=== PATIENT | male | born 1945 | race Caucasian/White ===

== ENCOUNTER 2020-07-15 20:47 | Emergency (ER) | payer MEDICARE, SELFPAY ==
--- NOTE | ~2020-07-15 | XR_ITS ---
EXAMINATION: XR chest 1V INDICATION: Chest pain after fall TECHNIQUE: AP view of the chest is obtained. COMPARISON: 08/07/2018 FINDINGS: There are chronic small pleural effusions, left greater than right. There is no pneumothora x. The heart size is upper limits of normal for technique. The lungs are free of acute opacities. IMPRESSION: 1. Small chronic pleural effusions. Reviewed, dictated and finalized at location A.
--- NOTE | ~2020-07-15 | XR_ITS ---
EXAMINATION: XR hip LT 2V w AP pelvis INDICATION: Left hip pain TECHNIQUE: AP view the pelvis and two views of the left hip are obtained. COMPARISON: None available FINDINGS: Bone alignment is normal. There is no fracture. There is mild osteoarthritis of the hips. IMPRESSION: 1. Mild osteoarthritis. Reviewed, dictated and finalized at location A. IMPRESSION: 1. Mild osteoarthritis.
--- NOTE | ~2020-07-15 | CT_ITS ---
EXAMINATION: CT brain wo con INDICATION: Dizziness COMPARISON: None TECHNIQUE: Standard unenhanced head CT. The dose-length product (DLP) was 605.33 mGy-cm. The mA was a djusted according to patient size. Iterative reconstruction technique was employed. FINDINGS: There is no acute intraparenchymal hemorrhage. No evidence of mass lesion. No evidence of a cute infarction. 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 There is mild periventric ular and subcortical hypodensity probably related to small vessel ischemic disease. There is moderate prominence of the sulci and ventricles related to cerebral atrophy. Intracranial calcified cerebral atherosclerosis is noted. There are no extra-axial collections. There is no mass effect or midline sh ift. Changes in the globes are likely from ocular lens surgery. There is mild mucosal thickening of the paranasal sinuses. IMPRESSION: 1. No acute intracranial abnormality. 2. Age related findings. Reviewed, dictated and finalized at location A.
[2020-07-15 20:51] VITALS: BP 126/74; PULSE 84; RESP 18; TEMP 36.9; O2SAT 100
[2020-07-15] MEDS: SODIUM CHLORIDE 0.9% IV 1,000 ML 999 ML IV CONT (21:51)
[2020-07-15 21:55] LABS: Hematocrit 26.6 % (42.0-52.0); Hemoglobin 8.4 g/dL (14.0-18.0); Immature Platelet Fraction Pct 6.8 % (0.9-11.2); Mean Corpuscular HGB Conc 31.6 g/dl (32-36); Mean Corpuscular Hemoglobin 30.3 pg (26-34); Mean Platelet Volume 11.5 fl (7.4-10.4); Platelet Count Result 96 k/mm3 (150-375); Red Blood Count 2.77 M/mm3 (4.6-6.20); Red Cell Distribution Width 17.4 % (11.5-14.5); White Blood Count 28.2 K/mm3 (4.5-10.0)
[2020-07-15 22:04] LABS: Anion Gap 7 mmol/L (8-16); Blood Urea Nitrogen 21 mg/dL (9-20); Calcium 8.4 mg/dL (8.4-10.2); Carbon Dioxide 22 mmol/L (22-30); Chloride 111 mmol/L (98-107); Estimated CRCL calculation 36 ml/min; Estimated Glomerular Filt Rate 39; Glucose 108 mg/dL (75-110); Sodium 140 mmol/L (137-145)
[2020-07-15 22:08] LABS: Band Neutrophils Percent 21 % (0-6); Monocytes Absolute Manual 3.66 K/mm3 (0.1-0.90); Monocytes Percent Manual 13 % (3-9); Neutrophils Percent Manual 40 % (46-73); Total Cells Counted 100
[2020-07-15 22:09] LABS: Platelet Estimate Decreased (Adequate)
[2020-07-15 22:10] LABS: Anisocytosis 1+ (NORMAL); Ovalocytes 1+ (NORMAL); Poikilocytosis 1+ (NORMAL)
[2020-07-15 22:12] LABS: Atypical Lymphocytes Present; Schistocytes 1+ (NORMAL)
[2020-07-15 22:13] LABS: Lymphocytes Absolute Manual 5.92 K/mm3 (1.1-4.5); Lymphocytes Percent Manual 21 % (18-44); Metamyelocytes Percent 5 %
[2020-07-15 22:46] VITALS: BP 134/81; PULSE 75
[2020-07-15 22:49] VITALS: BP 139/81; PULSE 80
[2020-07-15 22:51] VITALS: BP 120/78; PULSE 81
--- NOTE | 2020-07-15 23:48 | ED.GENADULT ---
HPI - General Adult General Chief complaint: Fall Stated complaint: fell at 1730 pt hit left arm arm and hip Time Seen by Provider: 07/15/20 21:04 Source: patient and RN notes reviewed Mode of arrival: ambulatory Limitations: no limitations History of Present Illness HPI narrative: Patient is a 75-year-old male who presents for evaluation of injuries related to a ground-level fall that occurred just prior to arrival patient was standing when he lost his balance falling injuring his left hip sustaining an abrasion to the left forearm. Patient notes history of lymphoma. Patient denies syncope loss of consciousness. Patient is currently being followed by oncology at [facility]. Patient notes he is receiving chemotherapy the last of which was a month ago and has plans to follow-up in clinic next week. Patient denies any recent illness or other complaints. Patient presents per private vehicle drove himself here. Patient lives at home by himself. Related Data Allergies Allergy/AdvReac Type Severity Reaction Status Date / Time tomato Allergy Unknown Verified 08/06/18 12:30 ONION Allergy Mild Uncoded 12/06/13 23:34 Review of Systems Review of Systems: All systems reviewed & are unremarkable except as noted in HPI and below PMFSH Past Medical History Medical History (Updated 07/15/20 @ 23:55 by Boo Funk PA-C) Lymphoma Seizures Social History Social History Smoking status: Never smoker Gender identity (if verbalized by the patient): Male Exam Narrative: Exam Narrative: GENERAL: Well-appearing, well-nourished, and in no acute distress. HEAD: Normocephalic, atraumatic. EYES: PERRLA and EOMI. ENT: Nares clear, no rhinorrhea or epistaxis. Mucous membranes moist. NECK: Supple. No adenopathy or masses. CHEST: Clear to auscultation. No respiratory distress. No wheezes rales or rhonchi HEART: Regular rate and rhythm. No murmur heard. Normal peripheral pulses. ABDOMEN: Soft, nontender, nondistended EXTREMITIES: Normal range of motion. No edema. Tenderness of the left hip no deformity. No cervical thoracic or lumbar tenderness. Remainder of extremities palpated nontender SKIN: Warm, dry, no rash. Superficial skin tear to the left forearm measuring 3 cm in length. NEURO: No focal deficits. Alert and oriented x3. Cranial nerves II through XII grossly intact. PSYCH: Normal mood and affect. Course Course Emergency Course: Discussed case with patient's oncology group and notes that his lab findings are consistent and they will follow with him by phone tomorrow. Patient is aware of the recommendations and discussion with his oncologist group. Patient was hydrated in the emergency department and road tested and notes that he feels comfortable to go home. He was offered to stay in the hospital but prefers to go home. Patient will follow with his oncology group tomorrow. Patient is afebrile nontoxic-appearing no distress. Consultations Consultation #1: Patient's lab findings and imaging findings were discussed with his [facility] group [facility] they will follow with him tomorrow and notes that his findings are consistent with his recent blood work Date: 07/15/20 Time: 23:53 Vital Signs Vital signs: Vital Signs Temperature 98.5 F 07/15/20 20:51 Pulse Rate 84 07/15/20 20:51 Respiratory Rate 18 07/15/20 20:51 Blood Pressure 126/74 07/15/20 20:51 Pulse Oximetry 100 07/15/20 20:51 Temperature 98.5 F 07/15/20 20:51 Pulse Rate 81 07/15/20 22:51 Respiratory Rate 18 07/15/20 20:51 Blood Pressure 120/78 07/15/20 22:51 Pulse Oximetry 100 07/15/20 20:51 Medical Decision Making MDM Narrative Medical decision making narrative: Patient evaluated in the emergency department for his injuries and is in the room in no distress will be discharged home per his preference he feels comfortable to go home patient was offered in [facility]
[2020-07-15 23:58] VITALS: BP 132/71; PULSE 74; RESP 18; O2SAT 99
== END 2020-07-15 23:58 | disposition home or self-care (01) ==
PROVIDERS: Emergency Medicine Emergency Medical Services; Emergency Provider Emergency Medicine; PCP Internal Medicine
DX: S79.912A Unspecified injury of left hip, initial encounter (principal); C85.90 Non-Hodgkin lymphoma, unspecified, unspecified site; Z79.899 Other long term (current) drug therapy; M16.12 Unilateral primary osteoarthritis, left hip; S51.812A Laceration without foreign body of left forearm, initial encounter; W18.39XA Other fall on same level, initial encounter
CPT/HCPCS: 36415; 70450; 71045; 73502; 80048; 85025; 85055; 96360; 99284; J7030

== ENCOUNTER 2020-10-05 21:41 | Inpatient (IN) | payer MEDICARE, SELFPAY ==
--- NOTE | ~2020-10-05 | XR_ITS ---
EXAMINATION: XR elbow LT min 3V DATE: 10/05/2020 23:23 INDICATION: Left elbow pain post fall TECHNIQUE: Anteroposterior, two oblique and lateral views of the left elbow were obtained. COMPARISON: None. FINDINGS: Alignment is normal. No fracture or joint effusion. Mild osteoarthritis at the left elbow. Soft tissu es are unremarkable. IMPRESSION: 1. Mild osteoarthritis at the left elbow. No acute osseous abnormality. Reviewed, dictated and finalized at location A.
--- NOTE | ~2020-10-05 | CT_ITS ---
EXAMINATION: CT brain wo con DATE: 10/05/2020 23:14 INDICATION: Fall with head injury TECHNIQUE: Computed tomography (CT) of the head was performed without intravenous contrast. Sagittal and coronal reconstructions were performed. The mA was adjusted according to patient size. Iterative reconstruction technique was employed. The dose-length product was 605.33 mGy-cm. COMPARISON: head CT dated 07/15/2020 FINDINGS: No fracture. No acute intracranial hemorrhage, acute infarction or abnormal extra axial fluid collect ion. Small old lacunar infarct versus prominent perivascular space at the inferior left basal ganglia . Small cortical infarcts at the left frontal and left frontoparietal regions as well as bilateral sm all old cerebellar infarcts. There is mild scattered white matter hypoattenuation consistent with chr onic small vessel ischemic disease. There is unchanged symmetric enlargement of the ventricles which is disproportionately to the relatively mild increased prominence of the sulci which could be related to either central predominant volume loss or normal pressure hydrocephalus. No mass/mass effect. Shereen nges of bilateral intraocular lens replacement. The orbits and mastoid air cells are normal. Mucosal thickening at the bilateral ethmoid and right sphenoid sinuses. IMPRESSION: 1. No acute intracranial process. 2. Small old infarcts in the left frontal and parietal occipital regions and bilateral cerebellar hem ispheres along with possible additional old lacunar infarct versus prominent perivascular space at th e left basal ganglia. 3. Unchanged increased prominence of the ventricles relative to the sulci which could be due to centr al predominant diffuse volume loss or normal pressure hydrocephalus (NPH: clinical triad ataxia/gait disturbance, dementia, urinary incontinence). Reviewed, dictated and finalized at location A. IMPRESSION: 1. No acute intracranial process. 2. Small old infarcts in the left frontal and parietal occipital regions and bi lateral cerebellar hemispheres along with possible additional old lacunar infar ct versus prominent perivascular space at the left basal ganglia. 3. Unchanged increased prominence of the ventricles relative to the sulci which could be due to central predominant diffuse volume loss or normal pressure hyd rocephalus (NPH: clinical triad ataxia/gait disturbance, dementia, urinary inco ntinence).
--- NOTE | ~2020-10-05 | MR_ITS ---
EXAMINATION: MR brain IAC wo con DATE: 10/06/2020 13:23 INDICATION: Gait dysfunction. Frequent falls. TECHNIQUE: Magnetic resonance imaging (MRI) of the brain, brainstem, and internal auditory canals was performed without intravenous contrast. Sequences included sagittal and axial T1-weighted FSE, axial diffusion-weighted FS EPI, axial T2*-weighted GRE, axial T2-weighted FLAIR Propeller, axial T2-weigh radha Propeller, small [id number] coronal FIESTA, small rgtyy-qg-[id number] coronal T1-weighted FSE, and s mall ovctk-bw-wgrs axial T1-weighted SPGR. Apparent diffusion coefficient (ADC) maps were created. COMPARISON: Head CT 10/05/2020 FINDINGS: There are old infarcts in the cerebellum bilaterally. There is an old infarct in left parie darshana occipital region. There is an old infarct in posterior left frontal lobe. There are old infarcts in the bilateral caudate nuclei. There are scattered areas of nonspecific increased T2-weighted signa l intensity in the cerebral white matter. There is no intracranial hemorrhage, acute infarction, or a bnormal intracranial mass lesion. The ventricles are normal in size. There is mucosal thickening in t he paranasal sinuses. There are likely changes of ocular lens replacement surgeries. The mastoid air cells are normal. IMPRESSION: 1. Multiple old infarcts in the brain. 2. Mild nonspecific cerebral white matter disease, which likely represents chronic small vessel ische kirill disease. Reviewed, dictated and finalized at location A. IMPRESSION: 1. Multiple old infarcts in the brain. 2. 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
--- NOTE | ~2020-10-05 | XR_ITS ---
EXAMINATION: XR chest 2V DATE: 10/05/2020 23:23 INDICATION: Weakness. Fall. TECHNIQUE: frontal and lateral views of the chest were obtained. COMPARISON: Chest radiograph dated 08/07/2018 and 07/15/2020 FINDINGS: Opacities in the bilateral lower lung zones consistent with persistent chronic small bilateral pleura l effusions, left greater than right and associated basilar atelectasis. Opacities in the right midlu ng zone on the lateral projection appears to represent an additional small amount of fluid loculated along the cephalad aspect of the right major fissure. No pulmonary edema or pneumothorax. Borderline heart size accounting for AP technique. Old healed lateral left eighth and ninth rib fractures. IMPRESSION: 1. Chronic small bilateral pleural effusions, left greater than right with associated basilar atelect asis/scarring. Pneumonia could not be excluded in the appropriate clinical setting. 2. Borderline heart size. Reviewed, dictated and finalized at location A. IMPRESSION: 1. Chronic small bilateral pleural effusions, left greater than right with asso ciated basilar atelectasis/scarring. Pneumonia could not be excluded in the neva ropriate clinical setting. 2. Borderline heart size.
--- NOTE | ~2020-10-05 | XR_ITS ---
EXAMINATION: XR knee LT min 4V DATE: 10/05/2020 23:24 INDICATION: Left knee pain post fall TECHNIQUE: Anteroposterior, 2 oblique and crosstable lateral views of the left knee were obtained COMPARISON: None. FINDINGS: Alignment is normal. No fracture. Joint spaces appear normal on nonweightbearing imaging. Tiny shefali nal osteophyte at the inferior margin of the patella. No joint effusion/layering lipohemarthrosis. So ft tissues are unremarkable. IMPRESSION: 1. No left knee joint effusion or acute osseous abnormality. Reviewed, dictated and finalized at location A.
--- NOTE | ~2020-10-05 | CT_ITS ---
EXAMINATION: CT abdomen pelvis wo con DATE: 10/06/2020 13:26 INDICATION: Weight loss. Decreased appetite. History of lymphoma. TECHNIQUE: Computed tomography (CT) of the abdomen and pelvis was performed without intravenous contr ast. Automated exposure control and iterative reconstruction technique were employed. Exam dose: 322 .85 mGy-cm total exam DLP. COMPARISON: None. FINDINGS: Bilateral lower lobe compressive atelectasis Mild to moderate bilateral pleural effusions. Cardiomegaly. No pericardial effusion. Small sliding hiatal hernia. 12 mm right hepatic posterior lateral peripheral hypoattenuating lesion with attenuation near fluid, consistent with hepatic cyst. Possible several additional smaller hepatic cysts. This examination is limited without the use of the intervenous contrast material. Borderline splenic size, the spleen measuring up to approximately 12 mm vertical dimension. 5.3 cm posterior upper pole right renal cyst Approximately 2 cm exophytic probable posterior lower pole left renal cyst 3.5 cm lower pole left renal cyst. No urinary tract calculus or hydroureteronephrosis is evident. There is moderate diffuse thickening o f the urinary bladder wall. There is moderate prostate enlargement and mild prostate calcification. There is aortic tortuosity and calcification; no abdominal aortic aneurysm. No intraperitoneal or retroperitoneal or pelvic mass lesion or adenopathy or ascites is detected. There is a prominent amount fecal material in the rectum, and prominent gas as well as air-fluid leve ls in the colon. No bowel obstruction is evident. No intraperitoneal free air is detected. There are multiple fracture deformities of the thoracic and lumbar spine including moderate anterior wedge compression fracture deformities at T10 and T11, L2 and L4 and to a lesser extent L3. There is more prominent burst fracture deformity of L5. There is osteophytic changes at both hip joints. No suspicious osteolytic or osteoblastic lesions are noted. IMPRESSION: Cardiomegaly, mild to moderate bilateral pleural effusions Bilateral lower lobe atelectasis Small sliding hiatal hernia Probable hepatic cysts Bilateral renal cysts Borderline splenic size Moderate prostate enlargement and calcification Multiple fracture deformities of the lower thoracic and lumbar spine Reviewed, dictated and finalized at Location A. Reviewed, dictated and finalized at location A.
[2020-10-05 21:42] VITALS: BP 131/80; PULSE 80; RESP 14; TEMP 37.3; O2SAT 100
[2020-10-05 22:33] VITALS: PULSE 68
--- NOTE | 2020-10-05 22:55 | ED.GENADULT ---
HPI - General Adult General Chief complaint: Unspecified Stated complaint: weakness Time Seen by Provider: 10/05/20 22:22 Source: patient and RN notes reviewed Mode of arrival: EMS Limitations: no limitations History of Present Illness HPI narrative: This is a 75 year old male with history of lymphoma who presents for evaluation of weakness. PAtient states he has not been eating much for the past 3 weeks. He states he does not have the desire to cook anymore so he has only been eating oatmeal. He states he fell 2- 3 days ago when he was picking weeds. He states he lost his balance and fell. He was able to get himself up off the ground. He denies headache or LOC. He suffered abrasions to his left forehead and left elbow. He did not seen medical treatment at that time. He states he came to hospital today because some friends recommended him to come to hospital. He states they have not seen him in a long time and they did not think he looked well. He told triage he has not showed in days. He states he needs some help with cooking and other things. He denies chest pain, sob, nausea, vomiting, diarrhea, abdominal pain or fever. Related Data Home Medications Medication Instructions Recorded Confirmed aprepitant See Rx Instructions .ROUTE .COMPLEX 10/06/20 10/06/20 fluticasone propionate 50 mcg INTRANASAL DAILY 10/06/20 10/06/20 latanoprost 1 drp EACH EYE HS 10/06/20 10/06/20 ondansetron HCl 8 mg PO Q8-10H PRN 10/06/20 10/06/20 prednisone See Rx Instructions .ROUTE .COMPLEX 10/06/20 10/06/20 prochlorperazine maleate 10 mg PO Q6-8H PRN 10/06/20 10/06/20 tamsulosin 0.4 mg PO DAILY 10/06/20 10/06/20 topiramate See Rx Instructions .ROUTE .COMPLEX 10/06/20 10/06/20 valacyclovir 500 mg PO DAILY 10/06/20 10/06/20 Allergies Allergy/AdvReac Type Severity Reaction Status Date / Time tomato Allergy Unknown Verified 08/06/18 12:30 ONION Allergy Mild Uncoded 12/06/13 23:34 Review of Systems Review of Systems: All systems reviewed & are unremarkable except as noted in HPI and below PMFSH Past Medical History Medical History (Updated 10/06/20 @ 07:55 by Rosalba Carrasquillo MD) Lymphoma Seizures Surgical History Surgical History (Updated 10/05/20 @ 23:01 by Rosalba Carrasquillo MD) H/O prostatectomy Social History Social History Smoking status: Never smoker Alcohol intake: current Drinks per week: 1 Gender identity (if verbalized by the patient): Male Spiritual care concerns: No Exam Const: General: cooperative, no acute distress, alert, awake and Physically active Nutritional Appearance: thin Orientation/consciousness: oriented to person, oriented to place, oriented to time and patient oriented x3 Limitations: no limitations HENMT: Head: normocephalic and other (left eyebrow healing abrasion) Face and sinus: face symmetric Mouth: Yes Normal oral and palatal mucosa present, Yes lip normal, Yes oropharynx normal and Yes moist mucous membranes Eyes: Conjunctivae: conjunctivae normal Pupils: Equal, round and reactive pupils present EOM: EOMs intact bilaterally Neck: Neck: normal visual inspection, full ROM and no lymphadenopathy Chest: Chest palpation & inspection: normal inspection of the chest Resp: Effort & Inspection: normal respiratory effort and able to speak in complete sentences Auscultation: clear to auscultation bilaterally GI: Inspection: normal to inspection Auscultation: normal bowel sounds Skin: General skin exam: other (left elbow with wound) Lesions: other Neuro: General: oriented to person, oriented to place, oriented to time and patient oriented x3 Cranial nerves: Yes CN's II-XII intact bilaterally Course Reevaluation(s) Date: 10/06/20 Time: 03:29 Consultations Consultation #1: I spoke with Dr. Lema of [facility]. I reviewed labs. She states patients wbc is at baseline. No transfusion needed at this time. Date
[2020-10-05] MEDS: LACTATED RINGERS 1,000 ML 999 ML IV CONT (23:26)
[2020-10-05 23:39] LABS: Basophils Percent Auto 0.3 % (0.2-1.2); Hematocrit 22.8 % (42.0-52.0); Immature Granulocyte Absolute 0.18 K/mm3 (0.00-0.031); Immature Granulocyte Percent A 5.4 % (0-0.5); Immature Platelet Fraction Pct 10.3 % (0.9-11.2); Lymphocytes Absolute Auto 0.07 K/mm3 (0.9-3.2); Lymphocytes Percent Auto 2.1 % (18.3-44.2); Mean Corpuscular HGB Conc 30.7 g/dl (32-36); Mean Corpuscular Hemoglobin 31.7 pg (26-34); Mean Corpuscular Volume 103.2 fl (80-100); Monocytes Absolute Auto 1.5 K/mm3 (0.1-0.6); Monocytes Percent Auto 43.3 % (2.6-8.5); Neutrophils Absolute Auto 1.6 K/mm3 (1.3-6.7); Neutrophils Percent Auto 48.9 % (45.5-73.1); Platelet Count Result 28 k/mm3 (150-375); Red Blood Count 2.21 M/mm3 (4.6-6.20); Red Cell Distribution Width 17.5 % (11.5-14.5); White Blood Count 3.4 K/mm3 (4.5-10.0)
[2020-10-05 23:44] LABS: Add Urine Microscopic? YES; Appearance Urine Clear (Clear); Bilirubin Urine Negative (Negative); Blood Urine 1+ (Negative); Color Urine Yellow (Yellow); Glucose Urine UA Negative (Negative); Ketones Urine Negative (Negative); Leukocyte Esterase Ur Negative LEU/UL (Negative); Mucus Urine Rare /lpf; Nitrate Urine Negative (Negative); Protein Urine 1+ mg/dL (Negative); RBC Urine 0-2 /hpf (0-2); Specific Grav Ur 1.021 (1.001-1.035); Urobilinogen Urine Negative mg/dL (<2.0); WBC Urine 0-3 /hpf
[2020-10-05 23:47] LABS: Alanine Aminotransferase 37 U/L (4-50); Albumin Level 3.8 g/dL (3.5-5.1); Alkaline Phosphatase 68 U/L (38-126); Anion Gap 8 mmol/L (8-16); Aspartate Amino Transferase 31 U/L (17-59); Bilirubin,Total 0.4 mg/dL (0.2-1.3); Blood Urea Nitrogen 29 mg/dL (9-20); Carbon Dioxide 21 mmol/L (22-30); Chloride 112 mmol/L (98-107); Estimated Glomerular Filt Rate 46; Glucose 106 mg/dL (65-110); Magnesium 1.8 mg/dL (1.6-2.3); Potassium 3.7 mmol/L (3.4-5.0); Sodium 141 mmol/L (137-145)
[2020-10-05 23:49] LABS: INR 1.2; Prothrombin Time 14.8 Seconds (11.1-14.7)
[2020-10-05 23:50] LABS: Partial Thromboplastin Time 29.9 SECONDS (22.3-36.8)
[2020-10-06] VITALS (13 sets, daily range): BP systolic 106–127; BP diastolic 61–80; PULSE 53–96; RESP 13–24; TEMP 36.4–37.5; O2SAT 94–100; BMI 20.3
[2020-10-06 00:05] LABS: Ovalocytes 2+ (NORMAL); Platelet Estimate Decreased (Adequate)
--- NOTE | 2020-10-06 01:02 | PC.NURSE ---
John Rodrigues [phone] call for A ride
--- NOTE | 2020-10-06 05:38 | PC.NURSE ---
Attempted to call report at this time, nurse unable to take report. Nurse to call ED back.
[2020-10-06] MEDS: SODIUM CHLORIDE 0.9% IV 1,000 ML 125 ML IV CONT (07:32)
--- NOTE | 2020-10-06 08:26 | ADMGEN ---
This patient, Jonny Ivan, was admitted to 3 [facility] Surg Room 313-01. Patient/family oriented to hospital policies and general routines including ID bracelet, bed and alarms, visiting hours, pain management, procedures, bathroom and other care routines, personal items, smoking policy, room service/diet, and visiting hours. Information on how to activate the Rapid Response Team has been discussed. Patient/Family are encouraged to report perceived risks to care and to ask questions if they do not understand what they are told or what they should do. Patient and I discussed his medications and testing. He appeared to have a good memory of recent events though didn't seem to know his medications. Hospital policy, testing, and current plan of care were all discussed.
[2020-10-06 10:35] LABS: Immature Reticulocyte Fraction 16.9 % (3.0-15.9); Reticulocyte Hemoglobin Conten 33.3 pg (28.2-35.7); Reticulocyte Percent 1.22 % (0.7-4.3); Reticulocytes Absolute 0.02 B/L (32.2-175.7)
--- NOTE | 2020-10-06 10:37 | WPDNEURCNPN ---
Assessment and Plan Additional Plan the CT scan has revealed old infarct in left frontal and parietal occipital region with bilateral cerebellar hemisphere involvement as well in addition to the prominence of the ventricles relative to the sulci raising the possibility served central predominant diffuse volume loss and possible normal pressure hydrocephalus. Patient had a CT scan done in June of 2020 which was not significant considering the diagnosis of lymphoma, mildly disc conjugate extraocular movements raising the possibility of a right C6 nerve involvement before further recommendations are made MRI of the brain will be ordered Consult date: 10/06/20 Time Seen: 10:15 HPI: Jonny Ivan is a 75 year old male Has been admitted to the hospital for the complaints of fall about 72 hours ago when he was picking up [employer] reportedly he lost balance and fell he was able to get himself up off the ground and subsequently had no headaches, did not become unconscious, sustained abrasion to his left forehead and left elbow. Not seek medical treatment at that time he came to the hospital on day of admission because his friends recommended him to come to the hospital and also the thought he did not look well. Patient carries the diagnosis of lymphoma has been taking multiple medications as outlined particularly Sarina acyclovir, topiramate, tamsulosin, and also he does have ongoing history of seizures in the past in addition to the diagnosis of lymphoma. He was never a smoker drinks only once per week and has undergone prostatectomy Review of Systems Review of Systems: All systems reviewed & are unremarkable except as noted in HPI and below PMFSH Past Medical History Medical History Lymphoma Seizures Surgical History Surgical History H/O prostatectomy Social History Social History Smoking status: Never smoker Alcohol intake: current Drinks per week: 1 Gender identity (if verbalized by the patient): Male Spiritual care concerns: No Meds Home Medications and Allergies Home Medications Medication Instructions Recorded Confirmed Type aprepitant See Rx Instructions .ROUTE .COMPLEX 10/06/20 10/06/20 History fluticasone propionate 50 mcg INTRANASAL DAILY 10/06/20 10/06/20 History latanoprost 1 drp EACH EYE HS 10/06/20 10/06/20 History ondansetron HCl 8 mg PO Q8-10H PRN 10/06/20 10/06/20 History prednisone See Rx Instructions .ROUTE .COMPLEX 10/06/20 10/06/20 History prochlorperazine maleate 10 mg PO Q6-8H PRN 10/06/20 10/06/20 History tamsulosin 0.4 mg PO DAILY 10/06/20 10/06/20 History topiramate See Rx Instructions .ROUTE .COMPLEX 10/06/20 10/06/20 History valacyclovir 500 mg PO DAILY 10/06/20 10/06/20 History Allergies Allergy/AdvReac Type Severity Reaction Status Date / Time tomato Allergy Unknown Verified 08/06/18 12:30 ONION Allergy Mild Uncoded 12/06/13 23:34 Vital Signs Vital Signs - 24 hr 10/05/20 21:42 10/05/20 22:33 10/06/20 00:41 Temperature 37.3 C Pulse Rate 80 68 69 Respiratory Rate 14 19 Blood Pressure 131/80 120/80 Pulse Oximetry 100 97 10/06/20 03:24 10/06/20 05:29 10/06/20 06:00 Temperature 36.8 C 36.6 C Pulse Rate 85 96 53 L Respiratory Rate 13 17 18 Blood Pressure 121/76 126/78 125/68 Pulse Oximetry 94 99 98 Exam Narrative: examination revealed him to be awake alert denying any problem or no obvious distress head normocephalic with no cranial bruit ear nose throat examination normal neck is supple with no cervical bruit no thyromegaly no lymphadenopathy heart regular with no murmur lungs clear to auscultation abdomen is soft no organomegaly neurological he was awake alert was able to follow all the verbal commands appropriately his speech was of low volume but no dysphasic no dysarthric and not dysphonic pupils were round regula
[2020-10-06 10:44] LABS: Iron 17 ug/dL (49-181)
--- NOTE | 2020-10-06 10:48 | WPDNEURCNPN ---
Consult date: 10/06/20 HPI: Jonny Ivan is a 75 year old male [facility] Past Medical History Medical History Lymphoma Seizures Surgical History Surgical History H/O prostatectomy Social History Social History Smoking status: Never smoker Alcohol intake: current Drinks per week: 1 Gender identity (if verbalized by the patient): Male Spiritual care concerns: No Meds Home Medications and Allergies Home Medications Medication Instructions Recorded Confirmed Type aprepitant See Rx Instructions .ROUTE .COMPLEX 10/06/20 10/06/20 History fluticasone propionate 50 mcg INTRANASAL DAILY 10/06/20 10/06/20 History latanoprost 1 drp EACH EYE HS 10/06/20 10/06/20 History ondansetron HCl 8 mg PO Q8-10H PRN 10/06/20 10/06/20 History prednisone See Rx Instructions .ROUTE .COMPLEX 10/06/20 10/06/20 History prochlorperazine maleate 10 mg PO Q6-8H PRN 10/06/20 10/06/20 History tamsulosin 0.4 mg PO DAILY 10/06/20 10/06/20 History topiramate See Rx Instructions .ROUTE .COMPLEX 10/06/20 10/06/20 History valacyclovir 500 mg PO DAILY 10/06/20 10/06/20 History Allergies Allergy/AdvReac Type Severity Reaction Status Date / Time tomato Allergy Unknown Verified 08/06/18 12:30 ONION Allergy Mild Uncoded 12/06/13 23:34 Vital Signs Vital Signs - 24 hr 10/05/20 21:42 10/05/20 22:33 10/06/20 00:41 Temperature 37.3 C Pulse Rate 80 68 69 Respiratory Rate 14 19 Blood Pressure 131/80 120/80 Pulse Oximetry 100 97 10/06/20 03:24 10/06/20 05:29 10/06/20 06:00 Temperature 36.8 C 36.6 C Pulse Rate 85 96 53 L Respiratory Rate 13 17 18 Blood Pressure 121/76 126/78 125/68 Pulse Oximetry 94 99 98 Results Labs CBC & Chem 7: 10/05/20 23:31 10/05/20 23:31 Labs: Short CBC 10/05/20 Range/Units 23:31 WBC 3.4 L (4.5-10.0) K/mm3 Hgb 7.0 L (14.0-18.0) g/dL Hct 22.8 L (42.0-52.0) % Plt Count 28 L D (150-375) k/mm3 BMP 10/05/20 23:31 Sodium 141 Potassium 3.7 Chloride 112 H Carbon Dioxide 21 L BUN 29 H Creatinine 1.50 H Glucose 106 Calcium 9.0 Liver Function 10/05/20 Range/Units 23:31 Total Bilirubin 0.4 (0.2-1.3) mg/dL AST 31 (17-59) U/L ALT 37 (4-50) U/L Alkaline Phosphatase 68 (38-126) U/L Albumin 3.8 (3.5-5.1) g/dL Urine 10/05/20 Range/Units 23:31 Urine Color Yellow (Yellow) Urine Appearance Clear (Clear) Urine pH 6.0 (5.0-9.0) Ur Specific [place] 1.021 (1.001-1.035) Urine Protein 1+ H (Negative) mg/dL Urine Glucose (UA) Negative (Negative) mg/dL
[2020-10-06 10:51] LABS: Transferrin 152 mg/dL (206-381)
[2020-10-06 10:54] LABS: Percent Iron Saturation 8 % (20-50)
--- NOTE | 2020-10-06 11:39 | PM.IMHP ---
H&P: HPI History of Present Illness Date/Time: 10/06/20 11:39 Chief Complaint: decreased appetite Narrative: Pt is a 75-year-old male with a history seizures and lymphoma who completed chemotherapy treatments in June 2020 who presented emergency room for weakness, decreased appetite and diarrhea. Patient states he came into the emergency room because his friends and family were concerned about him. He states he has not eaten much food in the last 3 months because he has no will to cook. He says he does not really have a problem with eating but he just does not have the energy or the drive to cook anything. He will snack occasionally but has not been to the store to get premade food but was getting around to it . He denies abdominal pain, heartburn symptoms, vomiting, nausea, dysphagia or throwing up blood. He says he continues to have diarrhea every time he eats. He explains that these are soft/liquid and are brown in color. He has no abdominal pain with this and denies greesey stool. He has lost a least 20lbs. He says this has been going on since June. He denies any cough, shortness of breath, chest pain, cold-like symptoms, leg swelling, history of blood clots, history of stroke, rashes or wounds. When asked about depression, he initially tells me that he is not depressed but after answering some questions he is considering that maybe he is depressed. He said after his chemo has no will or interest to do anything that he used to like to do. He still sees friends about 1 or 2 times a week and will have 1 or 2 beers during this time but really just does not enjoy things like he used to. No thoughts of self harm. He has not been falling but did have a mechanical fall outside while pulling weeds the other day. He got the COVID vaccine in June. He had a colonoscopy a couple years ago which he was told was fine and that he would need another one for 10 years. He is unsure if he has ever had an EGD. His last blood transfusion was in June. Last seizure was 8 years ago. Review of Systems Review of Systems: All systems reviewed & are unremarkable except as noted in HPI and below PMFSH Past Medical History Medical History (Updated 10/06/20 @ 11:48 by Chana Henderson PA-C) Lymphoma Seizures Surgical History Surgical History (Updated 10/06/20 @ 11:46 by Chana Henderson PA-C) H/O prostatectomy History of appendectomy History of hernia surgery Family History Family History (Updated 10/06/20 @ 11:45 by Chana Henderson PA-C) Mother Breast cancer Father Lymphoma Social History Social History (Updated 10/06/20 @ 11:46 by Chana Henderson PA-C) Social History: Patient would like to be a full code and would like his son and daughter Kirill and Denise as his surrogate decision maker if needed. He has never smoked cigarettes. He drinks about 1-2 drinks socially a week if he goes out with his friends. 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 No drugs Smoking status: Never smoker Alcohol intake: current Drinks per week: 1 Gender identity (if verbalized by the patient): Male Spiritual care concerns: No Meds Home Medications and Allergies Home Medications Medication Instructions Recorded Confirmed Type aprepitant See Rx Instructions .ROUTE .COMPLEX 10/06/20 10/06/20 History fluticasone propionate 50 mcg INTRANASAL DAILY 10/06/20 10/06/20 History latanoprost 1 drp EACH EYE HS 10/06/20 10/06/20 History ondansetron HCl 8 mg PO Q8-10H PRN 10/06/20 10/06/20 History prednisone See Rx Instructions .ROUTE .COMPLEX 10/06/20 10/06/20 History prochlorperazine maleate 10 mg PO Q6-8H PRN 10/06/20 10/06/20 History tamsulosin 0.4 mg PO DAILY 10/06/20 10/06/20 History topiramate See Rx Instructions .ROUTE .COMPLEX 10/06/20 10/06/20 History valacyclovir 500 mg PO DAILY 10/06/20 10/06/20 History Allergies Allergy/AdvReac Type Severity Reaction Status Date / Time tomato Allergy Unknown Verified 08/06/18 12:30 ONIO
[2020-10-06 12:00] LABS: Folic Acid 13.5 ng/mL (2.76->20); Vitamin B12 > 1000.0 pg/mL (239-931)
[2020-10-06] MEDS: SODIUM CHLORIDE 0.9% IV 250 ML 30 ML IV CONT (14:34)
[2020-10-06] MEDS: TOPIRAMATE 25 MG TABLET 50 MG PO ×2 (14:35→21:24)
[2020-10-06] MEDS: TOPIRAMATE 100 MG TABLET PO ×2 (14:35→21:24)
[2020-10-06] MEDS: MIRTAZAPINE 7.5 MG TABLET PO (21:24)
[2020-10-06] MEDS: LATANOPROST 0.005% OP SOLN 2.5 ML BTL 1 DROP EACH EYE (21:24)
[2020-10-06 22:07] LABS: Hematocrit 27.4 % (42.0-52.0); Hemoglobin 8.6 g/dL (14.0-18.0)
[2020-10-07 06:00] VITALS: BP 124/77; PULSE 72; RESP 18; TEMP 36.6; O2SAT 98
[2020-10-07 07:26] LABS: Hematocrit 22.7 % (42.0-52.0); Hemoglobin 7.1 g/dL (14.0-18.0); Immature Platelet Fraction Pct 9.8 % (0.9-11.2); Mean Corpuscular HGB Conc 31.3 g/dl (32-36); Mean Corpuscular Hemoglobin 32.1 pg (26-34); Mean Corpuscular Volume 102.7 fl (80-100); Platelet Count Result 34 k/mm3 (150-375); Red Blood Count 2.21 M/mm3 (4.6-6.20); Red Cell Distribution Width 17.2 % (11.5-14.5); White Blood Count 4.6 K/mm3 (4.5-10.0)
[2020-10-07 07:47] LABS: Anion Gap 6 mmol/L (8-16); Blood Urea Nitrogen 23 mg/dL (9-20); Calcium 7.8 mg/dL (8.4-10.2); Carbon Dioxide 21 mmol/L (22-30); Chloride 111 mmol/L (98-107); Estimated CRCL calculation 45 ml/min; Estimated Glomerular Filt Rate 59; Glucose 94 mg/dL (65-110); Potassium 3.4 mmol/L (3.4-5.0); Sodium 138 mmol/L (137-145)
[2020-10-07 08:46] LABS: Lymphocytes Absolute Manual 0.09 K/mm3 (1.1-4.5); Metamyelocytes Percent 7 %; Monocytes Absolute Manual 0.73 K/mm3 (0.1-0.90); Monocytes Percent Manual 16 % (3-9); Neutrophils Percent Manual 75 % (46-73); Platelet Estimate Decreased (Adequate); Total Cells Counted 100
[2020-10-07 08:48] LABS: Hypochromasia 1+ (NORMAL); Ovalocytes 1+ (NORMAL); Schistocytes 1+ (NORMAL)
--- NOTE | 2020-10-07 10:32 | PM.IMPN ---
Progress Note: A&P Assessment and Plan (1) Decreased appetite: Code(s): R63.0 - Anorexia Status: Acute Assessment and Plan: Patient has complaints of decreased appetite which has resulted in 20 lb weight loss -will obtain CT of the abdomen pelvis to rule out any pancreatic abnormalities due to weight loss and constant diarrhea -obtain stool sample, I spoke with GI who plans to do an EGD tomorrow and possible sigmoidoscopy -depression may be a major factor as he does not seem like he has any desire or will to cook or grocery shop. He looks like he is able to obtain meals himself, just no desire. May consider meals on wheels. Care coordination has provided information for help if needed -no signs and symptoms of dysphagia, abdominal pain or gastritis -will try Remeron for the depression and the appetite changes -last colonoscopy a few years ago was reportable normal -dietitian consult (2) Generalized weakness: Code(s): R53.1 - Weakness Status: Acute Assessment and Plan: Due to above -will order PT and OT -mechanical fall, no deficits -cortisol normal -check PSA due to bony abnormalities and prostatomegaly (3) Pancytopenia: Code(s): D61.818 - Other pancytopenia Status: Acute Assessment and Plan: According to the ER note, his physician office stated that his labs were at baseline -history of lymphoma with completed treatment in June 2020. Now in remission -platelets significantly low from the past, will monitor these closely. May need transfusion. No signs of bleeding -patient received 1 PRBC yesterday and hemoglobin did not improve. Assess diarrhea for occult blood and plan for EGD tomorrow. I have called his oncologist Dr. Arroyo with [facility] who is going to call me back so I can discuss his new CBC. I do not think he has any evidence of hemolysis since the potassium is normal, bilirubin is normal etc (4) Anemia: Code(s): D64.9 - Anemia, unspecified Status: Acute Assessment and Plan: Hemoglobin 7.1, he said his last blood transfusion was June 2020 and he had another 1 yesterday -appears to be anemia chronic disease with a history of lymphoma. Awaiting Hematology Oncology to call me back (5) Acute kidney injury: Code(s): N17.9 - Acute kidney failure, unspecified Status: Acute Assessment and Plan: Resolved with IV fluids, likely due to decreased appetite (6) CHI (closed head injury): Code(s): S09.90XA - Unspecified injury of head, initial encounter Status: Acute Assessment and Plan: Due to his fall without any pathology -MRI reviewed, no significant acute pathology -patient has a history of multiple old infarcts, consider aspirin at discharge if hemoglobin is stable and no evidence of bleeding on evaluation (7) Seizure disorder: Code(s): G40.909 - Epilepsy, unspecified, not intractable, without status epilepticus Status: Acute Assessment and Plan: Continue Topamax, no breakthrough seizure in 8 years Time Spent With Patient Time with patient: 25 - 35 minutes Subjective Date/time seen: 10/07/20 10:32 Interval history: Pt is a 75-year-old male here for weakness, diarrhea and decreased appetite. Patient was seen today and states he still cannot form a solid stool. He continues to have multiple episodes of diarrhea that is brown in color. He does not have any abdominal pain and has been eating and drinking fairly well. He denies chest pain, shortness of breath, nausea, vomiting, fevers or chills. He does not feel weak today but has not really done much according to him. Review of Systems Review of Systems: All systems reviewed & are unremarkable except as noted in HPI and below Exam Narrative: General:Well developed well nourished patient in no acute distress HEENT: Normocephalic, atraumatic, PERRL, Sclerae anicteric, moist mucosa moist. Neck: Supple Resp:
[2020-10-07] MEDS: TAMSULOSIN HCL 0.4 MG CAPSULE PO (11:22)
[2020-10-07] MEDS: TOPIRAMATE 25 MG TABLET 50 MG PO ×2 (11:22→22:11)
[2020-10-07] MEDS: FLUTICASONE PROPIONATE 0.05% NA SPR 16 GM BTL (*BKC) 1 SPRAY NASAL (11:23)
[2020-10-07] MEDS: TOPIRAMATE 100 MG TABLET PO ×2 (11:23→22:11)
[2020-10-07] MEDS: valACYclovir HCL 500 MG TABLET PO (11:23)
[2020-10-07] MEDS: POTASSIUM CHLORIDE 20 MEQ TABLET PO (11:25)
--- NOTE | 2020-10-07 11:48 | WPDNEUROPN ---
Objective Data Vital Signs Vital Signs: Vital Signs - 24 hr 10/06/20 12:06 10/06/20 14:00 10/06/20 14:32 Temperature 37.3 C 37.3 C Pulse Rate 72 72 Respiratory Rate 20 20 Blood Pressure 109/64 109/64 Pulse Oximetry 98 99 99 10/06/20 14:48 10/06/20 15:48 10/06/20 16:48 Temperature 36.4 C L 37.5 C 36.7 C Pulse Rate 70 80 77 Respiratory Rate 18 24 H 24 H Blood Pressure 109/66 106/61 118/66 Pulse Oximetry 99 100 98 10/06/20 17:40 10/06/20 18:23 10/06/20 22:00 Temperature 36.4 C 36.4 C 36.8 C Pulse Rate 90 90 75 Respiratory Rate 24 H 24 H 18 Blood Pressure 127/69 127/69 118/76 Pulse Oximetry 100 100 98 10/07/20 06:00 Temperature 36.6 C Pulse Rate 72 Respiratory Rate 18 Blood Pressure 124/77 Pulse Oximetry 98 Intake/Output Intake/Output: Intake & Output 10/04/20 10/05/20 10/06/20 10/07/20 23:59 23:59 23:59 23:59 Intake Total 3245 300 Output Total 100 Balance 3145 300 Meds/Results Medications: Active Medications Generic Name Dose Route Start Last Admin Trade Name Freq PRN Reason Stop Dose Admin Fluticasone Propionate 1 spray 10/06/20 14:40 10/07/20 11:23 Fluticasone Propionate 0.05% Na Spr 16 Gm Btl (*Bkc) NASAL 1 spray DAILY KISHA Administration Latanoprost 1 drop 10/06/20 21:00 10/06/20 21:24 Latanoprost 0.005% Op Soln 2.5 Ml Btl EACH EYE 1 drop HS KISHA Administration Mirtazapine 7.5 mg 10/06/20 21:00 10/06/20 21:24 Mirtazapine 7.5 Mg Tablet PO 7.5 mg HS KISHA Administration Ondansetron HCl 4 mg 10/06/20 05:06 Ondansetron Inj 4 Mg/2 Ml Vial IV PUSH Q4H PRN Nausea Ondansetron HCl 8 mg 10/06/20 10:11 Ondansetron Hcl Odt 4 Mg Tablet PO 11/05/20 10:12 Q8H PRN Nausea Tamsulosin HCl 0.4 mg 10/07/20 09:00 10/07/20 11:22 Tamsulosin Hcl 0.4 Mg Capsule PO 0.4 mg DAILY KISHA Administration Topiramate 50 mg 10/06/20 10:15 10/07/20 11:22 Topiramate 25 Mg Tablet PO 50 mg Q12HR KISHA Administration Topiramate 100 mg 10/06/20 10:15 10/07/20 11:23 Topiramate 100 Mg Tablet PO 100 mg Q12HR KISHA Administration Valacyclovir HCl 500 mg 10/07/20 09:00 10/07/20 11:23 Valacyclovir Hcl 500 Mg Tablet PO 500 mg DAILY KISHA Administration Radiology Results: ITS Impressions Head CT 10/05/20 23:15 IMPRESSION: 1. No acute intracranial process. 2. Small old infarcts in the left frontal and parietal occipital regions and bilateral cerebellar hemispheres along with possible additional old lacunar infarct versus prominent perivascular space at the left basal ganglia. 3. Unchanged increased prominence of the ventricles relative to the sulci which could be due to central predominant diffuse volume loss or normal pressure hydrocephalus (NPH: clinical triad ataxia/gait disturbance, dementia, urinary incontinence). Chest X-Ray 10/05/20 23:29 IMPRESSION: 1. Chronic small bilateral pleural effusions, left greater than right with associated basilar atelectasis/scarring. Pneumonia could not be excluded in the appropriate clinical setting. 2. Borderline heart size. Elbow X-Ray 10/05/20 23:32 IMPRESSION: 1. Mild osteoarthritis at the left elbow. No acute osseous abnormality. Knee X-Ray 10/05/20 23:35 IMPRESSION: 1. No left knee joint effusion or acute osseous abnormality. Brain MRI 10/06/20 13:28 IMPRESSION: 1. Multiple old infarcts in the brain. 2. Mild nonspecific cerebral white matter disease, which likely represents chronic small vessel ischemic disease. Abdomen/Pelvis CT 10/06/20 13:32 IMPRESSION: Cardiomegaly, mild to moderate bilateral pleural effusions Bilateral lower lobe atelectasis Small sliding hiatal hernia Probable hepatic cysts Bilateral renal cysts Borderline splenic size Moderate prostate enlargement and calcification Multiple fracture deformities of the lower thoracic and lumbar spine Labs Labs: Laboratory Results - last 24 hr 10/05/20
[2020-10-07 11:52] LABS: Prostate Specific Antigen 0.2 ng/mL (< OR = 4.0)
[2020-10-07 14:00] VITALS: BP 113/68; PULSE 68; RESP 20; TEMP 37.1; O2SAT 99
--- NOTE | 2020-10-07 18:10 | WPDGICN ---
Assessment and Plan Assessment and plan (1) Anorexia: Code(s): R63.0 - Anorexia Status: Acute Assessment and Plan: he says that has not been eating since chemotherapy May this year will do EGD to assess, denies abdominal pain (2) Diarrhea: Code(s): R19.7 - Diarrhea, unspecified Status: Acute Assessment and Plan: will also do flex-sigmoidoscopy, consider colitis, diarrea associated to chemo, etc will get stool samples (3) Decreased appetite: Code(s): R63.0 - Anorexia Status: Acute (4) Generalized weakness: Code(s): R53.1 - Weakness Status: Acute Assessment and Plan: probably multifactorial (5) Pancytopenia: Code(s): D61.818 - Other pancytopenia Status: Acute Assessment and Plan: will ask oncology to evaluate probably will need platelets transfusion tomorrow if still low- repeat in the morning (6) Seizure disorder: Code(s): G40.909 - Epilepsy, unspecified, not intractable, without status epilepticus Status: Acute (7) Lymphoma: Code(s): C85.90 - Non-Hodgkin lymphoma, unspecified, unspecified site Status: Inactive Assessment and Plan: get LDH and monitor cbc oncology to see GI Consult Note Consult date/time: 10/07/20 18:10 Reason for consult: anorexia, weight loss, diarrhea HPI: Jonny Ivan is a 75 year old male with history seizures and lymphoma who completed chemotherapy in June 2020 here for progressive weakness, decreased appetite and ongoing diarrhea. He he has not been eating much food since last chemotherapy, does not have appetite and not feeling like cooking. Also persistent diarrhea. CT scan reviewed, cardiomegaly, mild bilateral pleural effusions, small sliding hiatal hernia, borderline splenic size, multiple chronic fracture deformities of the lower thoracic and lumbar spine. Blood work noted hb 7.5, platelets 30k. Last colonoscopy about 2-3 years ago and apparently told to repeat in 10 years Review of Systems Constitutional: Constitutional: Reports lethargy Eyes: Eyes: Denies blurry vision ENT: Comments: hard of hearing Cardiovascular: Cardiovascular: Denies chest pain Respiratory: Respiratory: Denies dyspnea Gastrointestinal: Gastrointestinal: Reports diarrhea Genitourinary: Genitourinary: Denies dysuria Musculoskeletal: Musculoskeletal: Reports no additional musculoskeletal complaints Integumentary/Breasts: Skin/Breast: Denies dry skin Neurologic: Comments: h/o seizures Psychiatric: Psychiatric: Reports no additional psychiatric complaints PMFSH Past Medical History Medical History (Updated 10/07/20 @ 18:16 by Sky Law MD) Diarrhea Lymphoma Seizures Surgical History Surgical History (Updated 10/06/20 @ 11:46 by Chana Henderson PA-C) H/O prostatectomy History of appendectomy History of hernia surgery Family History Family History (Updated 10/06/20 @ 11:45 by Chana Henderson PA-C) Mother Breast cancer Father Lymphoma Social History Social History (Updated 10/06/20 @ 11:46 by Chana Henderson PA-C) Social History: Patient would like to be a full code and would like his son and daughter Kirill and Denise as his surrogate decision maker if needed. He has never smoked cigarettes. He drinks about 1-2 drinks socially a week if he goes out with his friends. 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
[2020-10-07 22:00] VITALS: BP 123/71; PULSE 72; RESP 18; TEMP 36.4; O2SAT 94
[2020-10-07] MEDS: MIRTAZAPINE 7.5 MG TABLET PO (22:11)
[2020-10-07] MEDS: BISACODYL 5 MG TABLET EC 20 MG PO (22:11)
[2020-10-07] MEDS: MAGNESIUM CITRATE 300 ML BTL PO (22:12)
[2020-10-07] MEDS: LATANOPROST 0.005% OP SOLN 2.5 ML BTL 1 DROP EACH EYE (22:12)
[2020-10-08] VITALS (7 sets, daily range): BP systolic 87–128; BP diastolic 55–74; PULSE 59–68; RESP 18–26; TEMP 36.1–36.5; O2SAT 96–100
[2020-10-08 00:18] LABS: IFOB Positive Control Positive; Immunochemical Fecal Occult Bl Negative (N)
[2020-10-08 06:41] LABS: Basophils Percent Auto 0.4 % (0.2-1.2); Hemoglobin 7.6 g/dL (14.0-18.0); Immature Granulocyte Absolute 0.21 K/mm3 (0.00-0.031); Immature Granulocyte Percent A 4.5 % (0-0.5); Immature Platelet Fraction Pct 9.6 % (0.9-11.2); Lymphocytes Absolute Auto 0.17 K/mm3 (0.9-3.2); Lymphocytes Percent Auto 3.6 % (18.3-44.2); Mean Corpuscular HGB Conc 31.7 g/dl (32-36); Mean Corpuscular Hemoglobin 31.5 pg (26-34); Mean Corpuscular Volume 99.6 fl (80-100); Monocytes Absolute Auto 1.6 K/mm3 (0.1-0.6); Monocytes Percent Auto 33.6 % (2.6-8.5); Neutrophils Absolute Auto 2.7 K/mm3 (1.3-6.7); Neutrophils Percent Auto 57.9 % (45.5-73.1); Platelet Count Result 42 k/mm3 (150-375); Red Blood Count 2.41 M/mm3 (4.6-6.20); Red Cell Distribution Width 17.1 % (11.5-14.5); White Blood Count 4.7 K/mm3 (4.5-10.0)
[2020-10-08 09:16] LABS: Platelet Estimate Decreased (Adequate)
[2020-10-08 09:17] LABS: Poikilocytosis 1+ (NORMAL); Schistocytes 1+ (NORMAL)
[2020-10-08 09:18] LABS: Ovalocytes 1+ (NORMAL)
[2020-10-08 09:44] LABS: Anion Gap 8 mmol/L (8-16); Blood Urea Nitrogen 19 mg/dL (9-20); CRP 2.7 mg/dL (<1.0); Calcium 8.1 mg/dL (8.4-10.2); Carbon Dioxide 20 mmol/L (22-30); Chloride 113 mmol/L (98-107); Estimated CRCL calculation 48 ml/min; Estimated Glomerular Filt Rate > 60; Glucose 93 mg/dL (65-110); Lactate Dehydrogenase 400 U/L (313-618); Potassium 3.1 mmol/L (3.4-5.0); Sodium 141 mmol/L (137-145)
[2020-10-08 09:48] LABS: Erythrocyte Sedimentation Rate > 140 mm/hr (0-20)
--- NOTE | 2020-10-08 10:49 | PM.IMPN ---
Progress Note: A&P Assessment and Plan (1) Decreased appetite: Code(s): R63.0 - Anorexia Status: Acute Assessment and Plan: Patient has complaints of decreased appetite which has resulted in [address] of the abdomen pelvis showing no acute findings but showing multiple chronic findings. CDiff negative. Othe stool studies pending. GI consulted with plans for EGD and possibly sigmoidoscopy. Depression may be a major factor in his poor appetite. Remeron started and his appetite seems to be improving. Consider meals on wheels. Care coordination has provided information for help if needed. Director Selection And Administration is following. EGD showing reflux esophagitis and hiatal hernia. Flex Sig showing no obvious concerns to explain the diarrhea. Biopsies taken. ESR>120 with CRP 2.7. LDH normal. Related to cancer? No obvious occult infectious etiology. (2) Generalized weakness: Code(s): R53.1 - Weakness Status: Acute Assessment and Plan: Due to above. Cortisol and TSH normal. PSA negative. Cpntinue PT/OT (3) Pancytopenia: Code(s): D61.818 - Other pancytopenia Status: Acute Assessment and Plan: According to the ER note, his physician office stated that his labs were at baseline. -history of lymphoma with completed treatment in June 2020. Now in remission -mild leukopenia on admission but this has resolved. Did have metamyelocytes at 7% yesterday. -platelets significantly low on admission at 28K but improved to 42K now. Hx of low plt but runs 70-90K range usually. No signs of bleeding. Continue to monitor -Hgb 7.0 and he received 1 PRBC; Hgb stable in the 7 range. Doubt hemolysis. Oncologist Dr. Arroyo with [facility] was called twice and awaiting a call back (4) Anemia: Code(s): D64.9 - Anemia, unspecified Status: Inactive Assessment and Plan: He has chronic anemia from the lymphoma with his last blood transfusion was June 2020. Hemoglobin 7.0 and he was transfused 1U PRBC on 10/06/20. Stool guaiac negative. Hgb stable in the 7 range. Hematology Oncology was contacted and messages were left. (5) Acute kidney injury: Code(s): N17.9 - Acute kidney failure, unspecified Status: Acute Assessment and Plan: Cr 1.5 on admission felt related to dehydration from poor oral intake. CR down to 1.1 tosay. Off IV fluids now (resumed for the EGD). Follow (6) CHI (closed head injury): Code(s): S09.90XA - Unspecified injury of head, initial encounter Status: Inactive Assessment and Plan: Patient had a fall with head injury 2-3 days priro to admission. He denied LOC. Head CT showing no acute process but did show old CVAs and possible NPH vs atrophy. Neurology consulted and MRI brain ordered. Brain MRI showing no acute proces and normal ventricles. No ASA due to low platelets. Hold Lipitor given his weakness for now. (7) Seizure disorder: Code(s): G40.909 - Epilepsy, unspecified, not intractable, without status epilepticus Status: Acute Assessment and Plan: No breakthrough seizure in 8 years. Continue Topamax. Subjective Date/time seen: 10/08/20 10:49 Interval history: 75yo male here for weakness, diarrhea and decreased appetite. He states he is eating better. He was seen by dietary. Supplements ordered. He is up waliking in the halls. He feels the diarrhea is better. He is NPO for endoscopy today. He denies CP or soB. no abd pian. Exam Narrative: AF 96.9 115/70 64 18 100% ra Gen - NARD Chest -decreased breath sounds in the left mid and lower lung field. Right basilar inspiratory rhonchi. Normal respiratory rate. CV - RRR S1/S2 Abd - Soft, NT/ND, Positive BS. No organomegaly. Ext - No pedal edema Neuro - Alert and oriented. Dysarthric speech. Psych - Nml mood and affect Skin -large dry eschar left elbow and left knee about size of a quarter. no surrounding erythema is. Object
--- NOTE | 2020-10-08 12:41 | PDONCCN ---
HPI - Date of Consult Date/Time: 10/08/20 12:41 Requesting Physician: Chana Henderson PA-C Primary Care Provider: ALEXANDRU,ISIDRO Pulido M.D. - Consult Narrative Reason for consult: Anemia and thrombocytopenia Narrative: Jonny Ivan is a 75 year old male with history of lymphoma completed chemotherapy in June of 2020. Patient received treatment by Dr. montague at [facility]. He is a poor historian and does not remember detail about lymphoma and chemotherapy treatment. He was brought into the hospital by the family due to tiredness fatigue and weight loss with poor appetite. He denies any bleeding including melena and hematochezia. Patient had some mild diarrhea. Labs showed hemoglobin of 7.1 [place] [address]. Hemoccult stool testing came back negative. CT scan showed mild splenomegaly. Review of Systems - Review of Systems All systems reviewed & are unremarkable except as noted in HPI and [facility] Medical History: Medical History (Last Updated 10/07/20 @ 18:16 by Sky Law MD) Diarrhea Lymphoma Seizures Surgical History: Surgical History (Last Updated 10/06/20 @ 11:46 by Chana Henderson PA-C) H/O prostatectomy History of appendectomy History of hernia surgery Family History: Family History (Last Updated 10/06/20 @ 11:45 by Chana Henderson PA-C) Mother Breast cancer Father Lymphoma - Social History Social History: Social History (Last Updated 10/06/20 @ 11:46 by Chana Henderson PA-C) Gender Identity: Gender identity (if verbalized by the patient): Male Alcohol Use: Alcohol intake: current Drinks per week: 1 Others: Spiritual care concerns: No Smoking Status: Smoking status: Never smoker Meds Home Medications Medication Instructions Recorded Confirmed Type aprepitant See Rx Instructions .ROUTE .COMPLEX 10/06/20 10/06/20 History fluticasone propionate 50 mcg INTRANASAL DAILY 10/06/20 10/06/20 History latanoprost 1 drp EACH EYE HS 10/06/20 10/06/20 History ondansetron HCl 8 mg PO Q8-10H PRN 10/06/20 10/06/20 History prednisone See Rx Instructions .ROUTE .COMPLEX 10/06/20 10/06/20 History prochlorperazine maleate 10 mg PO Q6-8H PRN 10/06/20 10/06/20 History tamsulosin 0.4 mg PO DAILY 10/06/20 10/06/20 History topiramate See Rx Instructions .ROUTE .COMPLEX 10/06/20 10/06/20 History valacyclovir 500 mg PO DAILY 10/06/20 10/06/20 History Allergies Allergy/AdvReac Type Severity Reaction Status Date / Time tomato Allergy Unknown Verified 08/06/18 12:30 ONION Allergy Mild Uncoded 12/06/13 23:34 Results - Labs CBC & Chem 7: 10/08/20 05:47 10/08/20 05:47 Labs: Short CBC 10/08/20 Range/Units 05:47 WBC 4.7 (4.5-10.0) K/mm3 Hgb 7.6 L (14.0-18.0) g/dL Hct 24.0 L (42.0-52.0) % Plt Count 42 L (150-375) k/mm3 BMP 10/08/20 05:47 Sodium 141 Potassium 3.1 L Chloride 113 H Carbon Dioxide 20 L BUN 19 Creatinine 1.10 Glucose 93 Calcium 8.1 L Assessment and Plan - Additional Plan Non-Hodgkin lymphoma status post chemotherapy completed in June of 2020. Patient was seen by Dr. Huggins at [facility]. I have reviewed the CT scan finding. LDH is normal. I have also made phone call to Dr. Huggins to get more information about his lymphoma and treatment received in the past. Macrocytic anemia and thrombocytopenia. It is possible that this could be secondary to previous chemotherapy and also lymphoma. We will get record from [facility]. CT scan showed mild splenomegaly that could also explain mild thrombocytopenia. We will check platelet antibodies. Vitamin B12 came back elevated. Iron and iron saturation is low but ferritin is elevated likely reactive secondary to infection/inflammation. We will check soluble transferrin receptor. We will also check methylmalonic acid level. GI consultation noted and penny
[2020-10-08] MEDS: LACTATED RINGERS 1,000 ML 150 ML IV CONT (13:08)
--- NOTE | 2020-10-08 13:12 | WPDANESEPPF ---
Anes - Initial Pre Proc Eval Procedure: Operation Date: 10/08/20 14:45 Proposed Procedures p Esophagogastroduodenoscopy - Sky Law MD s Sigmoidoscopy - Sky Law MD Date/Time: 10/08/20 13:12 Surgeon: Chana Henderson PA-C Pre Op Diagnosis: Pancytopenia, Anemia, Acute Kidney Injury, Lymphom Patient Data Age: 75 Gender: M Height: 1.8 m Weight: 66.3 kg Last Vital Signs Temp 36.1 C L 10/08/20 06:00 Pulse 64 10/08/20 06:00 Resp 18 10/08/20 06:00 BP 115/70 10/08/20 06:00 Pulse Ox 100 10/08/20 06:00 Allergies Allergy/AdvReac Type Severity Reaction Status Date / Time tomato Allergy Unknown Verified 08/06/18 12:30 ONION Allergy Mild Uncoded 12/06/13 23:34 Home Medications Medication Instructions Recorded Confirmed Type aprepitant See Rx Instructions .ROUTE .COMPLEX 10/06/20 10/06/20 History fluticasone propionate 50 mcg INTRANASAL DAILY 10/06/20 10/06/20 History latanoprost 1 drp EACH EYE HS 10/06/20 10/06/20 History ondansetron HCl 8 mg PO Q8-10H PRN 10/06/20 10/06/20 History prednisone See Rx Instructions .ROUTE .COMPLEX 10/06/20 10/06/20 History prochlorperazine maleate 10 mg PO Q6-8H PRN 10/06/20 10/06/20 History tamsulosin 0.4 mg PO DAILY 10/06/20 10/06/20 History topiramate See Rx Instructions .ROUTE .COMPLEX 10/06/20 10/06/20 History valacyclovir 500 mg PO DAILY 10/06/20 10/06/20 History Laboratory Tests 10/07/20 10/08/20 10/08/20 23:11 05:47 05:47 WBC 4.7 K/mm3 K/mm3 (4.5-10.0) RBC 2.41 M/mm3 L M/mm3 (4.6-6.20) Hgb 7.6 g/dL L g/dL (14.0-18.0) Hct 24.0 % L % (42.0-52.0) MCV 99.6 fl fl (80-100) MCH 31.5 pg pg (26-34) MCHC 31.7 g/dl L g/dl (32-36) RDW 17.1 % H % (11.5-14.5) Plt Count 42 k/mm3 L k/mm3 (150-375) MPV TNP Immature Gran % (Auto) 4.5 % H % (0-0.5) Neut % (Auto) 57.9 % % (45.5-73.1) Lymph % (Auto) 3.6 % L % (18.3-44.2) [place] % (Auto) 33.6 % H % (2.6-8.5) Eos % (Auto) 0.0 % % (0-4.4) Baso % (Auto) 0.4 % % (0.2-1.2) Lymph # (Auto) 0.17 K/mm3 L K/mm3 (0.9-3.2) [place] # (Auto) 1.6 K/mm3 H K/mm3 (0.1-0.6) Eos # (Auto) 0.0 K/mm3 K/mm3 (0-0.3) Baso # (Auto) 0.0 K/mm3 K/mm3 (0.0-0.1) Abs Immat Gran (auto) 0.21 K/mm3 H K/mm3 (0.00-0.031) Absolute Neuts (auto) 2.7 K/mm3 K/mm3 (1.3-6.7) Absolute Nucleated RBC 0.0 K/mm3 K/mm3 (0.0-0.012) Nucleated RBC % 0.0 % % (0.0-0.2) Platelet Estimate Decreased (Adequate) % Immature Plt Fraction 9.6 % % (0.9-11.2) Poikilocytosis 1+ (NORMAL) Ovalocytes 1+ (NORMAL) Schistocytes 1+ (NORMAL) ESR Sodium 141 mmol/L mmol/L (137-145) Potassium 3.1 mmol/L L mmol/L (3.4-5.0) Chloride 113 mmol/L H mmol/L (98-107) Carbon Dioxide 20 mmol/L L mmol/L (22-30) Anion Gap 8 mmol/L mmol/L (8-16) BUN 19 mg/dL mg/dL (9-20) Creatinine 1.10 mg/dL mg/dL (0.7-1.3) Estim Creat Clear Calc 48 ml/min ml/min Estimated GFR > 60 (59 - ) Glucose 93 mg/dL mg/dL (65-110) Calcium 8.1 mg/dL L mg/dL (8.4-10.2) Lactate Dehydrogenase 400 U/L U/L (313-618) C-Reactive Protein 2.7 mg/dL H mg/dL (<1.0) Stl Occult Blood (IFOB) Negative (N) 10/08/20 05:47 WBC RBC Hgb Hct MCV MCH MCHC RDW Plt Count MPV Immature Gran % (Auto) Neut % (Auto) Lymph % (Auto) [place]quois % (Auto) Eos % (Auto) Baso % (Auto) Lymph # (Auto) [place] # (Auto) Eos # (Auto) Baso # (Auto) Abs Immat Gran (auto) Absolute Neuts (auto)
[2020-10-08] MEDS: FLUTICASONE PROPIONATE 0.05% NA SPR 16 GM BTL (*BKC) 1 SPRAY NASAL (16:59)
[2020-10-08] MEDS: POTASSIUM CHLORIDE 20 MEQ TABLET 40 MEQ PO (17:58)
[2020-10-08] MEDS: MIRTAZAPINE 7.5 MG TABLET PO (21:38)
[2020-10-08] MEDS: TOPIRAMATE 25 MG TABLET 50 MG PO (21:38)
[2020-10-08] MEDS: TOPIRAMATE 100 MG TABLET PO (21:38)
[2020-10-08] MEDS: LATANOPROST 0.005% OP SOLN 2.5 ML BTL 1 DROP EACH EYE (21:39)
[2020-10-09 06:00] VITALS: BP 124/68; PULSE 66; RESP 18; TEMP 36.2; O2SAT 99
[2020-10-09 06:22] LABS: Hematocrit 21.8 % (42.0-52.0); Hemoglobin 7.1 g/dL (14.0-18.0); Immature Platelet Fraction Pct 6.9 % (0.9-11.2); Lymphocytes Absolute Auto 0.15 K/mm3 (0.9-3.2); Lymphocytes Percent Auto 4.6 % (18.3-44.2); Mean Corpuscular HGB Conc 32.6 g/dl (32-36); Mean Corpuscular Hemoglobin 32.1 pg (26-34); Mean Corpuscular Volume 98.6 fl (80-100); Monocytes Absolute Auto 1.1 K/mm3 (0.1-0.6); Monocytes Percent Auto 33.2 % (2.6-8.5); Neutrophils Absolute Auto 1.9 K/mm3 (1.3-6.7); Neutrophils Percent Auto 59.2 % (45.5-73.1); Platelet Count Result 48 k/mm3 (150-375); Red Blood Count 2.21 M/mm3 (4.6-6.20); White Blood Count 3.3 K/mm3 (4.5-10.0)
[2020-10-09 06:41] LABS: Anion Gap 9 mmol/L (8-16); Blood Urea Nitrogen 19 mg/dL (9-20); Calcium 7.8 mg/dL (8.4-10.2); Carbon Dioxide 19 mmol/L (22-30); Chloride 107 mmol/L (98-107); Estimated CRCL calculation 48 ml/min; Estimated Glomerular Filt Rate > 60; Glucose 86 mg/dL (65-110); Potassium 3.4 mmol/L (3.4-5.0); Sodium 135 mmol/L (137-145)
[2020-10-09 06:49] LABS: Platelet Estimate Decreased (Adequate)
[2020-10-09 06:50] LABS: Ovalocytes 2+ (NORMAL); Tear Drop Cells 2+ (NORMAL)
[2020-10-09 06:51] LABS: Crenated RBC 1+ (NORMAL)
[2020-10-09] MEDS: PANTOPRAZOLE 40 MG TABLET PO (08:40)
[2020-10-09] MEDS: TAMSULOSIN HCL 0.4 MG CAPSULE PO (08:40)
[2020-10-09] MEDS: TOPIRAMATE 25 MG TABLET 50 MG PO ×2 (08:40→20:50)
[2020-10-09] MEDS: valACYclovir HCL 500 MG TABLET PO (08:40)
[2020-10-09] MEDS: TOPIRAMATE 100 MG TABLET PO ×2 (08:41→20:50)
[2020-10-09] MEDS: FLUTICASONE PROPIONATE 0.05% NA SPR 16 GM BTL (*BKC) 1 SPRAY NASAL (08:41)
--- NOTE | 2020-10-09 12:57 | PM.IMPN ---
Progress Note: A&P Assessment and Plan (1) Failure to thrive: Qualifiers: Failure to thrive age range: in adult Qualified Code(s): R62.7 - Adult failure to thrive Status: Acute Assessment and Plan: Likely from chemotherapy or progression of lymphoma (patient states he has completed chemotherapy) patient has lack interest in eating the way he did before. He is maintaining adequate nutrition has seen by his weight loss. He has thenar eminence wasting as well as anabaptist wasting. Dietitian consulted, continue meal supplements (2) Pancytopenia: Code(s): D61.818 - Other pancytopenia Status: Acute Assessment and Plan: Oncology consult, may be related to chemotherapy lymphoma, possibly from bone marrow biopsy. Continue iron supplementation, will transfuse if hemoglobin drops less than 7. His nutritional deficits may be playing a role to his pancytopenia. (3) Severe protein-calorie malnutrition: Code(s): E43 - Unspecified severe protein-calorie malnutrition Status: Acute Assessment and Plan: None enough caloric intake, fat loss, muscle loss, significant weight loss over last year. Malnutrition secondary to failure to thrive from lymphoma chemotherapy (4) Esophagitis: Code(s): K20.90 - Esophagitis, unspecified without bleeding Status: Acute Assessment and Plan: Has seen a EGD, continue daily Protonix, continue bland diet. GI complaint EGD and colonoscopy (5) Lymphoma: Code(s): C85.90 - Non-Hodgkin lymphoma, unspecified, unspecified site Status: Acute Assessment and Plan: Dr. Stinson consulted (6) Diarrhea: Code(s): R19.7 - Diarrhea, unspecified Status: Acute Assessment and Plan: Improved (7) Seizure disorder: Code(s): G40.909 - Epilepsy, unspecified, not intractable, without status epilepticus Status: Acute Assessment and Plan: Longstanding, continue home meds (8) Decreased appetite: Code(s): R63.0 - Anorexia Status: Acute Assessment and Plan: Continue Remeron, adding no supplements Ensure and protein (9) Generalized weakness: Code(s): R53.1 - Weakness Status: Acute Assessment and Plan: To thrive as above (10) Anorexia: Code(s): R63.0 - Anorexia Status: Acute Assessment and Plan: As above (11) Acute kidney injury: Code(s): N17.9 - Acute kidney failure, unspecified Status: Acute Assessment and Plan: Resolved, creatinine normalized likely prerenal improved with IV fluids Subjective Date/time seen: 10/09/20 12:57 Patient examined. Who has worked with OT, practicing his exercises. Patient states he has finished his chemotherapy in June however has further decline clinically, failure to thrive. He is not maintaining is adequate caloric intake. Oncology may perform bone marrow biopsy.He may have some bone marrow suppression from his recent chemotherapy however it has been 3 months as per patient. He is getting iron infusions. Patient EGD/colonoscopy yesterday showing grade 2 reflux esophagitis but does not explain symptoms and no major findings on colonoscopy other than a few weeks small internal hemorrhoids. Patient denies fever, chills, nausea, vomiting, diarrhea. Review of Systems Review of Systems: All systems reviewed & are unremarkable except as noted in HPI and below Exam Narrative: - GENERAL: Cachectic, frail, chronically ill-appearing pleasant male in no acute distress. Sitting comfortably in chair. - EYES: EOMI. Anicteric. - HENT: Moist mucous membranes. Bilateral hearing aids present, hard of hearing. Sunken temples. Slight left-sided facial droop on smiling (apparently present before, not new). - LUNGS: Clear to auscultation bilaterally, no wheezing, rhonchi, or rales. Decreased lung sounds at bilateral bases. - CARDIOVASCULAR: Regular rate and rhythm. No murmur. - ABDOMEN: Soft, non-tender and
--- NOTE | 2020-10-09 13:06 | WPDGIPROGNO ---
Progress Note: A&P Assessment and Plan (1) Diarrhea: Code(s): R19.7 - Diarrhea, unspecified Status: Acute Assessment and Plan: no major findings, random colon bx pending probably multifactorial from underlying deconditioning, previous h/o lymphoma and chemorx will follow from [place], please call if questions (2) Failure to thrive: Status: Acute Assessment and Plan: multifactorial, encourage to eat (3) Lymphoma: Code(s): C85.90 - Non-Hodgkin lymphoma, unspecified, unspecified site Status: Acute Assessment and Plan: oncology on board now (4) Pancytopenia: Code(s): D61.818 - Other pancytopenia Status: Acute (5) Anorexia: Code(s): R63.0 - Anorexia Status: Acute (6) Esophagitis: Code(s): K20.90 - Esophagitis, unspecified without bleeding Status: Acute Assessment and Plan: mild esophagitis, on ppi now Subjective Date/time seen: 10/09/20 13:06 Interval history: egd and sigmoidoscopy yesterday, only mild reflux esophagitis without colitis. No major changes. Review of Systems Review of Systems: All systems reviewed & are unremarkable except as noted in HPI and below Exam Const: General: comfortable, no acute distress and ill appearing chronically Other: frail elderly HENMT: General nose exam: Normal nares present Other: bitemporal wasting Eyes: Sclera: sclerae normal Neck: Neck: supple Resp: Effort & Inspection: normal respiratory effort Cardio: Rate: regular rate GI: Inspection: non-distended GI Palp: Yes Soft to palpation, No Tenderness to palpation present (GI) and No Guarding due to palpation present (GI) Auscultation: normal bowel sounds Skin: General skin exam: normal color Neuro: Speech: normal speech Motor exam (neuro): Normal motor muscle tone present throughout Extrem: General: normal to inspection Psych: Mental Status: mental status grossly normal Objective Data Vital Signs Vital Signs: Vital Signs - 24 hr 10/08/20 13:10 10/08/20 14:00 10/08/20 14:11 Temperature 97.1 F L 97.7 F Pulse Rate 65 59 L 68 Respiratory Rate 18 18 26 H Blood Pressure 128/74 122/73 87/55 L Pulse Oximetry 100 99 100 10/08/20 14:21 10/08/20 14:31 10/08/20 22:00 Temperature 97.3 F L Pulse Rate 63 63 62 Respiratory Rate 24 H 22 H 18 Blood Pressure 92/58 L 106/66 121/66 Pulse Oximetry 100 96 97 10/09/20 06:00 Temperature 97.2 F L Pulse Rate 66 Respiratory Rate 18 Blood Pressure 124/68 Pulse Oximetry 99 Intake/Output Intake/Output: Intake & Output 10/06/20 10/07/20 10/08/20 10/09/20 23:59 23:59 23:59 23:59 Intake Total 3245 1940 1355 1040 Output Total 100 200 200 Balance 3145 1940 1155 840 Meds/Results Medications: Active Medications Generic Name Dose Route Start Last Admin Trade Name Freq PRN Reason Stop Dose Admin Fluticasone Propionate 1 spray 10/06/20 14:40 10/09/20 08:41 Fluticasone Propionate 0.05% Na Spr 16 Gm Btl (*Bkc) NASAL 1 spray DAILY KISHA Administration Iron Sucrose 300 mg/ Sodium 115 mls @ 76.667 mls/hr 10/08/20 14:00 10/09/20 10:21 Chloride IVPB 10/10/20 10:29 76.67 mls/hr DAILY KISHA Administration Latanoprost 1 drop 10/06/20 21:00 10/08/20 21:39 Latanoprost 0.005% Op Soln 2.5 Ml Btl EACH EYE 1 drop HS KISHA Administration Loperamide HCl 2 mg 10/08/20 14:42 Loperamide Hcl 2 Mg Capsule PO PRN PRN Diarrhea Mirtazapine 7.5 mg 10/06/20 21:00 10/08/20 21:38 Mirtazapine 7.5 Mg Tablet PO 7.5 mg HS KISHA Administration Ondansetron HCl 4 mg 10/06/20 05:06 Ondansetron Inj 4 Mg/2 Ml Vial IV PUSH Q4H PRN Nausea Ondansetron HCl 8 mg 10/06/20 10:11 Ondansetron Hcl Odt 4 Mg Tablet PO 11/05/20 10:12 Q8H PRN Nausea Pantoprazole Sodium 40 mg 10/08/20 09:00 10/09/20 08:40 Pantoprazole 40 Mg Tablet PO 40 mg QAM KISHA Administration Tamsulosin HCl 0.4 mg 10/07/20 09:00 10/09/20
[2020-10-09 15:45] VITALS: BP 100/60; PULSE 72; RESP 12; TEMP 36.4; O2SAT 100
[2020-10-09] MEDS: MIRTAZAPINE 7.5 MG TABLET PO (20:50)
[2020-10-09] MEDS: LATANOPROST 0.005% OP SOLN 2.5 ML BTL 1 DROP EACH EYE (20:51)
[2020-10-09 21:36] VITALS: BP 112/64; PULSE 79; RESP 18; TEMP 36.4; O2SAT 98
[2020-10-10 06:00] VITALS: BP 117/71; PULSE 70; RESP 18; TEMP 36.3; O2SAT 97
[2020-10-10 07:43] LABS: Basophils Percent Auto 0.3 % (0.2-1.2); Hematocrit 23.7 % (42.0-52.0); Hemoglobin 7.5 g/dL (14.0-18.0); Immature Granulocyte Absolute 0.12 K/mm3 (0.00-0.031); Immature Granulocyte Percent A 3.4 % (0-0.5); Immature Platelet Fraction Pct 6.2 % (0.9-11.2); Lymphocytes Absolute Auto 0.17 K/mm3 (0.9-3.2); Lymphocytes Percent Auto 4.8 % (18.3-44.2); Mean Corpuscular HGB Conc 31.6 g/dl (32-36); Mean Corpuscular Hemoglobin 31.6 pg (26-34); Mean Platelet Volume 13.3 fl (7.4-10.4); Monocytes Percent Auto 27.5 % (2.6-8.5); Neutrophils Absolute Auto 2.3 K/mm3 (1.3-6.7); Platelet Count Result 65 k/mm3 (150-375); Red Blood Count 2.37 M/mm3 (4.6-6.20); Red Cell Distribution Width 17.1 % (11.5-14.5); White Blood Count 3.6 K/mm3 (4.5-10.0)
[2020-10-10 08:05] LABS: Ovalocytes 2+ (NORMAL); Platelet Estimate Decreased (Adequate); Tear Drop Cells 2+ (NORMAL)
[2020-10-10 08:13] LABS: Alanine Aminotransferase 18 U/L (4-50); Albumin Level 3.2 g/dL (3.5-5.1); Alkaline Phosphatase 66 U/L (38-126); Anion Gap 4 mmol/L (8-16); Aspartate Amino Transferase 18 U/L (17-59); Bilirubin,Total 0.2 mg/dL (0.2-1.3); Blood Urea Nitrogen 22 mg/dL (9-20); Calcium 7.9 mg/dL (8.4-10.2); Carbon Dioxide 20 mmol/L (22-30); Chloride 112 mmol/L (98-107); Estimated CRCL calculation 45 ml/min; Estimated Glomerular Filt Rate 59; Glucose 88 mg/dL (65-110); Magnesium 1.8 mg/dL (1.6-2.3); Phosphorus 2.8 mg/dL (2.5-4.5); Potassium 3.8 mmol/L (3.4-5.0); Sodium 136 mmol/L (137-145)
[2020-10-10] MEDS: TOPIRAMATE 25 MG TABLET 50 MG PO ×2 (08:26→20:26)
[2020-10-10] MEDS: TAMSULOSIN HCL 0.4 MG CAPSULE PO (08:26)
[2020-10-10] MEDS: TOPIRAMATE 100 MG TABLET PO ×2 (08:26→20:26)
[2020-10-10] MEDS: valACYclovir HCL 500 MG TABLET PO (08:26)
[2020-10-10] MEDS: PANTOPRAZOLE 40 MG TABLET PO (08:26)
[2020-10-10] MEDS: FLUTICASONE PROPIONATE 0.05% NA SPR 16 GM BTL (*BKC) 1 SPRAY NASAL (08:27)
[2020-10-10] MEDS: MAGNESIUM SULF 2 GM/WATER 50ML 2 GM/50 ML BAG IVPB (13:37)
[2020-10-10 14:00] VITALS: BP 103/65; PULSE 74; RESP 14; TEMP 37.2; O2SAT 100
--- NOTE | 2020-10-10 14:31 | PM.IMPN ---
Progress Note: A&P Assessment and Plan (1) Failure to thrive: Qualifiers: Failure to thrive age range: in adult Qualified Code(s): R62.7 - Adult failure to thrive Status: Acute Assessment and Plan: -Likely etiology for his fall, malnutrition, failure to thrive with history of lymphoma, recently completed chemotherapy June 2020 -patient work with physical therapy, patient would like to follow-up with home health (2) Severe protein-calorie malnutrition: Code(s): E43 - Unspecified severe protein-calorie malnutrition Status: Acute Assessment and Plan: -continue Ensure and protein supplement. Malnutrition secondary to lymphoma chemotherapy, inadequate caloric intake and associated fat and muscle loss. Remeron was started to stimulate appetite (3) Esophagitis: Code(s): K20.90 - Esophagitis, unspecified without bleeding Status: Acute Assessment and Plan: Seen on EGD, continue PPI, bland diet. Patient had EGD and colonoscopy this hospitalization. (4) Lymphoma: Code(s): C85.90 - Non-Hodgkin lymphoma, unspecified, unspecified site Status: Acute Assessment and Plan: Consulted Dr. Stinson. Chemotherapy was provided by Dr. Keating at [facility] which he completed June 2020. (5) Diarrhea: Qualifiers: Diarrhea type: unspecified type Qualified Code(s): R19.7 - Diarrhea, unspecified Code(s): R19.7 - Diarrhea, unspecified Status: Acute Assessment and Plan: improved, colonoscopy biopsies pending (6) Seizure disorder: Code(s): G40.909 - Epilepsy, unspecified, not intractable, without status epilepticus Status: Acute Assessment and Plan: Longstanding, continue home medications (7) Pancytopenia: Code(s): D61.818 - Other pancytopenia Status: Acute Assessment and Plan: Likely from chemotherapy, follows Dr. Stinson (8) Acute kidney injury: Code(s): N17.9 - Acute kidney failure, unspecified Status: Acute Assessment and Plan: Improved with IV fluids, prerenal Additional Plan Diet: Regular with meal supplements DVT prophylaxis: SCDs GI prophylaxis: Protonix Code status: Full code Disposition: Home with home health tomorrow, daughter to come and live with patient Time Spent With Patient Time with patient: 15 - 25 minutes Subjective Date/time seen: 10/10/20 14:31 Patient examined. He is doing well today, feels much better. His daughter will come tomorrow from [place] to help take care him. Plan for discharge home with home health tomorrow. He will continue with PPI for his esophagitis. He will continue meal supplements Ensure for his failure to thrive. Patient denies fever, chills, nausea, vomiting, diarrhea, chest pain, abdominal pain. Review of Systems Review of Systems: All systems reviewed & are unremarkable except as noted in HPI and below Exam Narrative: - GENERAL: Cachectic, frail, chronically ill-appearing pleasant male in no acute distress. Sitting comfortably in chair eating breakfast. - EYES: EOMI. Anicteric. - HENT: Moist mucous membranes. Bilateral hearing aids present, hard of hearing. Sunken temples. Small bruise on left side of head - LUNGS: Clear to auscultation bilaterally, no wheezing, rhonchi, or rales. - CARDIOVASCULAR: Regular rate and rhythm. No murmur. - ABDOMEN: Soft, non-tender and non-distended. No palpable masses. - EXTREMITIES: No edema. Peripheral pulses 2+. Non-tender. Thenar eminence wasting present bilaterally. - NEUROLOGIC: No focal neurological deficits. CN II-XII grossly intact. - PSYCHIATRIC: Awake, Alert and oriented x 3. Appropriate mood and affect. - SKIN: No rashes or lesions. Warm. - LYMPH: No cervical lymphadenopathy. Objective Data Vital Signs Vital Signs: Vital Signs - 24 hr 10/09/20 15:45 10/09/20 21:36 10/10/20 06:00 Temperature 36.4 C L 36.4 C 36.3 C L Pulse Rate 72 79 70 Respiratory Rate 12 18 1
[2020-10-10] MEDS: LATANOPROST 0.005% OP SOLN 2.5 ML BTL 1 DROP EACH EYE (20:26)
[2020-10-10] MEDS: MIRTAZAPINE 7.5 MG TABLET PO (20:26)
[2020-10-10 22:00] VITALS: BP 114/69; PULSE 78; RESP 17; TEMP 36.7; O2SAT 100
[2020-10-11] VITALS (8 sets, daily range): BP systolic 106–125; BP diastolic 56–75; PULSE 67–87; RESP 15–20; TEMP 36.1–36.9; O2SAT 98–100
[2020-10-11 07:29] LABS: Hematocrit 21.8 % (42.0-52.0); Immature Granulocyte Absolute 0.08 K/mm3 (0.00-0.031); Immature Granulocyte Percent A 2.1 % (0-0.5); Lymphocytes Absolute Auto 0.16 K/mm3 (0.9-3.2); Lymphocytes Percent Auto 4.2 % (18.3-44.2); Mean Corpuscular HGB Conc 31.2 g/dl (32-36); Mean Corpuscular Hemoglobin 31.9 pg (26-34); Mean Corpuscular Volume 102.3 fl (80-100); Mean Platelet Volume 12.2 fl (7.4-10.4); Monocytes Absolute Auto 1.4 K/mm3 (0.1-0.6); Monocytes Percent Auto 37.2 % (2.6-8.5); Neutrophils Absolute Auto 2.1 K/mm3 (1.3-6.7); Neutrophils Percent Auto 56.5 % (45.5-73.1); Platelet Count Result 76 k/mm3 (150-375); Red Blood Count 2.13 M/mm3 (4.6-6.20); Red Cell Distribution Width 17.1 % (11.5-14.5); White Blood Count 3.8 K/mm3 (4.5-10.0)
[2020-10-11 08:38] LABS: Hemoglobin 6.8 g/dL (14.0-18.0)
[2020-10-11 08:39] LABS: Anisocytosis 1+ (NORMAL); Platelet Estimate Decreased (Adequate); Poikilocytosis 2+ (NORMAL)
[2020-10-11 08:40] LABS: Ovalocytes 2+ (NORMAL); Tear Drop Cells 1+ (NORMAL)
[2020-10-11] MEDS: TOPIRAMATE 25 MG TABLET 50 MG PO ×2 (08:53→21:23)
[2020-10-11] MEDS: TAMSULOSIN HCL 0.4 MG CAPSULE PO (08:53)
[2020-10-11] MEDS: valACYclovir HCL 500 MG TABLET PO (08:53)
[2020-10-11] MEDS: TOPIRAMATE 100 MG TABLET PO ×2 (08:53→21:24)
[2020-10-11] MEDS: PANTOPRAZOLE 40 MG TABLET PO (08:53)
[2020-10-11] MEDS: FLUTICASONE PROPIONATE 0.05% NA SPR 16 GM BTL (*BKC) 1 SPRAY NASAL (08:53)
[2020-10-11 08:57] LABS: Anion Gap 3 mmol/L (8-16); Blood Urea Nitrogen 23 mg/dL (9-20); Calcium 7.8 mg/dL (8.4-10.2); Carbon Dioxide 21 mmol/L (22-30); Chloride 111 mmol/L (98-107); Estimated CRCL calculation 48 ml/min; Estimated Glomerular Filt Rate > 60; Glucose 88 mg/dL (65-110); Potassium 3.7 mmol/L (3.4-5.0); Sodium 135 mmol/L (137-145)
--- NOTE | 2020-10-11 10:42 | PCNFU ---
Nutrition Follow-Up Complete: Unintended weight loss as related to possible depression as evidenced by weight loss of 18 ibs in the past 3 months. Goal: Meet estimated nutritional needs Patient is progressing towards goal. We will continue current goal. Pt current nutrition is Low fiber with Enlive BID and Prostat BID Last recorded weight is 66.3 kg. no new weight to report, recommend new weight. Bowel Motility:+BM reported 10/11 Labs Reviewed:Hgb 6.8,Hct 21.8 Meds Noted:Remeron,Zalatan,Protonix,Topamax,Valtrex. Additional Notes: Patient seen today for nutrition follow up. He was just starting to eat breakfast. Overall Intake's have been greater than 75% of meals. Diet supplements continue with Enlive BID and Prostat BID. Agree with diet orders. Monitoring: Will monitor every 5 days.
--- NOTE | 2020-10-11 15:48 | PM.IMPN ---
Progress Note: A&P Assessment and Plan (1) Decreased appetite: Code(s): R63.0 - Anorexia Status: Acute Assessment and Plan: Patient has complaints of decreased appetite which has resulted in [address] of the abdomen pelvis showing no acute findings but showing multiple chronic findings. CDiff negative. Othe stool studies pending. EGD showing reflux esophagitis and hiatal hernia. Flex Sig showing no obvious concerns to explain the diarrhea. Biopsies taken. ESR>120 with CRP 2.7. LDH normal. Depression may be a major factor in his poor appetite. Remeron started and his appetite is improving. Follow (2) Generalized weakness: Code(s): R53.1 - Weakness Status: Acute Assessment and Plan: Due to above. Cortisol and TSH normal. PSA negative. Continue PT/OT (3) Diarrhea: Qualifiers: Diarrhea type: unspecified type Qualified Code(s): R19.7 - Diarrhea, unspecified Code(s): R19.7 - Diarrhea, unspecified Status: Acute Assessment and Plan: Improved as his appetite improved. Sigmoidescopy was unrevealing. Bx pending. (4) Pancytopenia: Code(s): D61.818 - Other pancytopenia Status: Acute Assessment and Plan: According to the ER note, his physician office stated that his labs were at baseline. -history of lymphoma with completed treatment in June 2020. Now in remission -mild leukopenia on admission but this has remained mildly low. Rleated to chemo? -platelets significantly low on admission at 28K but improved to 76K now. Hx of low plt but runs 70-90K range usually so back to baseline. No signs of bleeding. -He has chronic anemia from the lymphoma with his last blood transfusion was June 2020. Hemoglobin 7.0 and he was transfused 1U PRBC on 10/06/20. Stool guaiac negative. Hgb stable in the 7 range. Hematology Oncology following. Hgb dropped to 6.8 this moring and transfusion ordered. (5) Acute kidney injury: Code(s): N17.9 - Acute kidney failure, unspecified Status: Acute Assessment and Plan: Cr 1.5 on admission felt related to dehydration from poor oral intake. CR down to 1.1 tosay. Follow (6) CHI (closed head injury): Code(s): S09.90XA - Unspecified injury of head, initial encounter Status: Inactive Assessment and Plan: Patient had a fall with head injury 2-3 days prior to admission. He denied LOC. Head CT showing no acute process but did show old CVAs and possible NPH vs atrophy. Neurology consulted and MRI brain ordered. Brain MRI showing no acute process and normal ventricles. No ASA due to low platelets. Hold Lipitor given his weakness for now. (7) Lymphoma: Code(s): C85.90 - Non-Hodgkin lymphoma, unspecified, unspecified site Status: Acute Assessment and Plan: Currently in remission. COmpleted treatment course in the Spring. Follow up with Dr Stinson or Joseluis after discahrge. (8) Seizure disorder: Code(s): G40.909 - Epilepsy, unspecified, not intractable, without status epilepticus Status: Acute Assessment and Plan: No breakthrough seizure in 8 years. Continue Topamax. (9) Esophagitis: Code(s): K20.90 - Esophagitis, unspecified without bleeding Status: Acute Assessment and Plan: EGD showing reflux esophagitis. Contineu Protonix. Additional Plan DVT prophylaxis - SCDs Subjective Date/time seen: 10/11/20 15:48 Interval history: 75yo male with lymphoma here for weakness, diarrhea and decreased appetite. Resuming care. Chart reviewed. Patient slept well. Eating better. Walking up to 340 feet. No diarrhea. Stools becoming more bulked. Exam Narrative: AF 97.0 106/56 76 20 98% ra Gen - NARD Chest -decreased breath sounds in the left mid and lower lung field. Right base inspir crackles CV - RRR S1/S2 Abd - Soft, NT/ND, Positive BS. No organomegaly. Ext - No pedal edema Psych - N
[2020-10-11] MEDS: LATANOPROST 0.005% OP SOLN 2.5 ML BTL 1 DROP EACH EYE (21:22)
[2020-10-11] MEDS: MIRTAZAPINE 7.5 MG TABLET PO (21:23)
[2020-10-12 06:00] VITALS: BP 118/69; PULSE 64; RESP 18; TEMP 36.3; O2SAT 98
[2020-10-12 07:04] LABS: Hematocrit 27.5 % (42.0-52.0); Hemoglobin 7.8 g/dL (14.0-18.0); Mean Corpuscular HGB Conc 28.4 g/dl (32-36); Mean Corpuscular Hemoglobin 32.1 pg (26-34); Mean Corpuscular Volume 113.2 fl (80-100); Mean Platelet Volume 12.7 fl (7.4-10.4); Platelet Count Result 92 k/mm3 (150-375); Red Blood Count 2.43 M/mm3 (4.6-6.20); Red Cell Distribution Width 17.4 % (11.5-14.5); White Blood Count 3.8 K/mm3 (4.5-10.0)
[2020-10-12 08:56] LABS: Methylmalonic Acid 109 nmol/L (87-318)
[2020-10-12 09:42] LABS: Band Neutrophils Percent 7 % (0-6); Basophils Absolute Manual 0.03 K/mm3 (0.0-0.1); Basophils Percent Manual 1 % (0-1); Eosinophils Absolute Manual 0.03 K/mm3 (0.02-0.5); Eosinophils Percent Manual 1 % (0-4); Lymphocytes Absolute Manual 0.68 K/mm3 (1.1-4.5); Monocytes Absolute Manual 0.19 K/mm3 (0.1-0.90); Monocytes Percent Manual 5 % (3-9); Neutrophils Absolute Manual 2.85 K/mm3 (1.3-6.7); Neutrophils Percent Manual 68 % (46-73); Total Cells Counted 100
[2020-10-12 09:43] LABS: Anisocytosis 3+ (NORMAL); Microcytosis 1+ (NORMAL); Ovalocytes 2+ (NORMAL)
[2020-10-12 09:44] LABS: Hypochromasia 1+ (NORMAL); Tear Drop Cells 1+ (NORMAL)
[2020-10-12] MEDS: FLUTICASONE PROPIONATE 0.05% NA SPR 16 GM BTL (*BKC) 1 SPRAY NASAL (09:56)
[2020-10-12] MEDS: TOPIRAMATE 25 MG TABLET 50 MG PO (09:56)
[2020-10-12] MEDS: TAMSULOSIN HCL 0.4 MG CAPSULE PO (09:57)
[2020-10-12] MEDS: PANTOPRAZOLE 40 MG TABLET PO (09:57)
[2020-10-12] MEDS: valACYclovir HCL 500 MG TABLET PO (09:57)
[2020-10-12] MEDS: TOPIRAMATE 100 MG TABLET PO (09:57)
--- NOTE | 2020-10-12 13:30 | PM.DS ---
DS: Admitting Diagnosis Admitting Diagnosis Weakness, decreased appetite and diarrhea. DS: Discharge Diagnosis Discharge Diagnosis (1) Decreased appetite: Code(s): R63.0 - Anorexia Status: Acute Assessment and Plan: Patient has complaints of decreased appetite which has resulted in [address] of the abdomen and pelvis showing no acute findings but showing multiple chronic findings (please see report for details). CDiff negative. Other stool studies negative except Campylobacter pending. EGD showing reflux esophagitis and hiatal hernia. Flex Sig showing no obvious concerns to explain the diarrhea. Biopsies taken with results pending. ESR>120 with CRP 2.7 possibly related to his lymphoma but LDH normal. Depression may be a major factor in his poor appetite. Remeron started and his appetite is improving. Diarrhea becoming more bulked. Spoke with dtr. Patient could come off the Remeron if diet better and mood improved. (2) Generalized weakness: Code(s): R53.1 - Weakness Status: Acute Assessment and Plan: Due to above. Cortisol and TSH normal. PSA negative. Treated with PT/OT. Henna has been up walking in the halls up to 340 feet. Continue PT/OT as outpatient (3) Diarrhea: Qualifiers: Diarrhea type: unspecified type Qualified Code(s): R19.7 - Diarrhea, unspecified Code(s): R19.7 - Diarrhea, unspecified Status: Acute Assessment and Plan: Improved as his appetite improved. Sigmoidoscopy was unrevealing. Bx pending. Follow up with GI as outpatient (4) Pancytopenia: Code(s): D61.818 - Other pancytopenia Status: Acute Assessment and Plan: According to the ER note, his physician office stated that his labs were at baseline. -history of lymphoma with completed treatment in August 2020. Now in remission. -mild leukopenia on admission but this has remained mildly low. ANC 2600. Related to chemo? -platelets significantly low on admission at 28K but improved to 92K now. Hx of low plt but runs 70-90K range usually so back to baseline. No signs of bleeding. -He has chronic anemia from the lymphoma with his last blood transfusion was June 2020. Hemoglobin 7.0 on admission. Iron level 17 with TIBC 222 at 8% saturation. Transferrin 152 with ferritin 1180 (probably an acute phase reaction). He did not have any evidence of obvious infectious etiology to explain he elevated markers. He received a total of 2U PRBC during his hospital course. Stool guaiac negative. Hematology/Oncology followed along. (5) Acute kidney injury: Code(s): N17.9 - Acute kidney failure, unspecified Status: Acute Assessment and Plan: Cr 1.5 on admission felt related to dehydration from poor oral intake. CR down to 1.1. (6) CHI (closed head injury): Code(s): S09.90XA - Unspecified injury of head, initial encounter Status: Inactive Assessment and Plan: Patient had a fall with head injury 2-3 days prior to admission. He denied LOC. Head CT showing no acute process but did show old CVAs and possible NPH vs atrophy. Neurology consulted and MRI brain ordered. Brain MRI showing no acute process and normal ventricles. No ASA due to low platelets. Hold Lipitor given his weakness for now. Patient to follow up with neurologist to be re-evaluated for ASA and Lipitor. (7) Lymphoma: Code(s): C85.90 - Non-Hodgkin lymphoma, unspecified, unspecified site Status: Acute Assessment and Plan: Currently in remission. Completed treatment course in August. Follow up with Dr Stinson or Joseluis after discharge. (8) Seizure disorder: Code(s): G40.909 - Epilepsy, unspecified, not intractable, without status epilepticus Status: Acute Assessment and Plan: No breakthrough seizure in 8 years. We continued his Topamax. (9) Esophagitis: Code(s): K20.90 - Esophagitis, unspecified withou
--- NOTE | 2020-10-19 13:28 | PC.NURSE ---
Campylobacter is negative Colon bx shows mild chronic gastritis STR is WNL at 1.50 Dr. Lupe penny.
== END 2020-10-12 18:35 | disposition home health service (06) | DRG 391 ==
LOC: ANHED 22:40 → ANH3MEDSUR 10-06 05:33
PROVIDERS: Internal Medicine Gastroenterology; Internal Medicine Hematology & Oncology; Physician Assistant; Student in an Organized Health Care Education/Training Program; Admitting Provider Internal Medicine; Emergency Provider General Practice; PCP Internal Medicine; Visit Provider Internal Medicine
PROC: 0DJ08ZZ Inspection of Upper Intestinal Tract, Via Natural or Artificial Opening Endoscopic (ICD-10-PCS; CPT 43235; principal; 2020-10-08 14:45)
PROC: 0DJD8ZZ Inspection of Lower Intestinal Tract, Via Natural or Artificial Opening Endoscopic (ICD-10-PCS; CPT 45330; 2020-10-08 14:45)
DX: K21.00 Gastro-esophageal reflux disease with esophagitis, without bleeding (principal); E43 Unspecified severe protein-calorie malnutrition; D61.818 Other pancytopenia; N17.9 Acute kidney failure, unspecified; C85.90 Non-Hodgkin lymphoma, unspecified, unspecified site; K44.9 Diaphragmatic hernia without obstruction or gangrene; R62.7 Adult failure to thrive; R19.7 Diarrhea, unspecified; R53.1 Weakness; R63.0 Anorexia; G40.909 Epilepsy, unspecified, not intractable, without status epilepticus; S09.90XA Unspecified injury of head, initial encounter; W18.39XA Other fall on same level, initial encounter; Y93.H2 Activity, gardening and landscaping; Z92.21 Personal history of antineoplastic chemotherapy
CPT/HCPCS: 36415; 36430; 70450; 70551; 71046; 73080; 73564; 74176; 80048; 80053; 81001; 82274; 82533; 82607; 82728; 82746; 83540; 83550; 83615; 83735; 83921; 84100; 84153; 84238; 84443; 84466; 85014; 85018; 85025; 85046; 85055; 85610; 85652; 85730; 86023; 86140; 86850; 86900; 86901; 86920; 87045; 87046; 87324; 87427; 88305; 89055; 96360; 97110; 97116; 97162; 97165; 97535; 99285; A9270; G0378; J1756; J2704; J3475; J7030; J7050; J7120; P9016

== ENCOUNTER 2020-10-23 17:17 | Inpatient (IN) | payer MEDICARE, SELFPAY ==
[2020-10-23] VITALS (28 sets, daily range): BP systolic 88–117; BP diastolic 60–78; PULSE 80–166; RESP 16–28; TEMP 37–37.9; O2SAT 93–100; BMI 21.6
--- NOTE | ~2020-10-23 | XR_ITS ---
EXAMINATION: XR chest 1V portable INDICATION: Pleural effusion and infiltrates TECHNIQUE: Portable AP chest at 0510 hours COMPARISON: 10/23/2020 FINDINGS: There are moderate-sized left and small right pleural effusions. No pneumothorax is identif ied. There are increasing airspace opacities of the left mid and lower lung zones. Minimal airspace o pacity there is present in the right lung base. The left-sided rib fractures are noted. IMPRESSION: 1. Moderate-sized left and small right pleural effusions. 2. Worsening opacities of the left mid and lower lung zones and right lung base, consistent with atel ectasis versus pneumonia. Reviewed, dictated and finalized at location A. IMPRESSION: 1. Moderate-sized left and small right pleural effusions. 2. Worsening opacities of the left mid and lower lung zones and right lung base , consistent with atelectasis versus pneumonia.
--- NOTE | ~2020-10-23 | CT_ITS ---
EXAMINATION: CT diagnostic chest wo con DATE: 10/24/2020 12:36 INDICATION: Pneumonia TECHNIQUE: Computed tomography (CT) of the chest was performed without intravenous contrast. Automate d exposure control and iterative reconstruction technique were employed. Exam dose: 437.80 mGy-cm to darshana exam DLP. COMPARISON: 10/23/2020 portable AP chest FINDINGS: There are bilateral pleural effusions, left greater than right. There is right lower lobe dependent atelectasis. There is dependent left upper lobe and particularly left lower lobe compressive atelectasis secondary to the large pleural effusion. There is thoracic aortic ectasia. There is coronary artery calcification. Cardiomegaly. No pericardia l effusion. Small sliding hiatal hernia. Old healed rib fractures. Chronic compression fracture deformities of the thoracic spine, including T6, T7, T8, T10, T11. IMPRESSION: Bilateral pleural effusions, left greater the right, with compressive atelectasis of the lower lobes, especially on the left and left upper lobe Cardiomegaly Reviewed, dictated and finalized at Location A. Reviewed, dictated and finalized at location A. IMPRESSION: Bilateral pleural effusions, left greater the right, with compress gage atelectasis of the lower lobes, especially on the left and left upper lobe Cardiomegaly
--- NOTE | ~2020-10-23 | CT_ITS ---
EXAMINATION: CT cervical spine wo [facility] EXAM DATE: 10/25/2020 08:51 INDICATION: Fall, head injury. TECHNIQUE: Spiral CT of the cervical spine was performed without contrast. Axial images were reviewe d. Coronal and sagittal reformatted images cervical spine were also reviewed. The dose-length produc t (DLP) for this examination was 351.46 mGy-cm. The exposure was tailored according to patient size (auto mA exposure control), and iterative reconstruction (ASIR) was used as additional dose reduction technique. Comparison is made to prior examination from 10/23/2020. FINDINGS: There is no evidence of acute cervical fracture. The odontoid process is intact. Pre-dens space is normal. Prevertebral soft tissue is normal. There are no soft tissue abnormalities identi fied. There is no disc space widening or traumatic vertebral body subluxation suspected. Overall mi ld to moderate cervical spondylosis. A detailed level by level evaluation of spondylosis can be adde d as addendum if requested. IMPRESSION: 1. No acute cervical fracture. 2. Mild to moderate cervical spondylosis. Reviewed, dictated and finalized at location B.
--- NOTE | ~2020-10-23 | CT_ITS ---
EXAMINATION: CT cervical spine wo con DATE: 10/23/2020 17:55 INDICATION: Fall. Head and neck injury. Confusion. TECHNIQUE: Computed tomography (CT) of the cervical spine was performed without intravenous contrast. Automated exposure control and iterative reconstruction technique were employed. Exam dose: 234.95 mGy-cm total exam DLP. COMPARISON: None FINDINGS: There is straightening and scoliosis of the cervical spine which may be due to positioning or muscle spasm. C1 and C2 are normally aligned and the odontoid process is intact. No fracture or dislocation or locked facet or prevertebral soft tissue swelling. There is moderately prominent degenerative disc disease at C5-6 and C6-7. There is degenerative change at the apophyseal and uncovertebral joints joints.. IMPRESSION: Straightening and scoliosis of the cervical spine Moderate degenerative changes No fracture or dislocation Reviewed, dictated and finalized at Location A. Reviewed, dictated and finalized at location A.
--- NOTE | ~2020-10-23 | CT_ITS ---
EXAMINATION: CT brain wo con DATE: 10/29/2020 12:18 INDICATION: Subdural hematoma TECHNIQUE: Computed tomography (CT) of the head was performed without intravenous contrast. Sagittal and coronal reconstructions were performed. The mA was adjusted according to patient size. Iterative reconstruction technique was employed. The dose-length product was 605.33 mGy-cm. COMPARISON: head CT dated 10/26/2020 FINDINGS: Continued slight decrease in size of a posterior left false seen subdural hematoma which now measures up to 4 mm in maximal thickness, previously 5 mm. Unchanged small foci of encephalomalacia consisten t with chronic infarcts in the left frontal and parietal lobes as well as in the bilateral cerebellar hemispheres. There are also small old lacunar infarcts at the heads of the bilateral caudate nuclei No acute acute infarction. There is mild scattered white matter hypoattenuation consistent with chron ic small vessel ischemic disease. Unchanged symmetric ventricular prominence out of proportion to sul ci which is suspected most likely central atrophy rather than hydrocephalus. Normal pressure hydrocep halus cannot be excluded (clinical triad ataxia/gait disturbance, dementia, urinary incontinence). No mass/mass effect. Changes of bilateral intraocular lens replacement. The orbits and mastoid air cell s are normal. Prominent mucosal thickening in the right maxillary and bilateral ethmoid sinuses. IMPRESSION: 1. Continued slight decrease in size of a small left posterior parafalcine subdural hematoma. 2. Stable appearance of multiple small old infarcts in the bilateral cerebellar hemispheres, left fro ntal and parietal lobes and bilateral caudate nuclei. 3. Mild scattered white matter hypoattenuation consistent with chronic small vessel ischemic disease. 4. Symmetric enlargement of the ventricles most likely central predominant age-related volume loss al though differential includes normal pressure hydrocephalus (clinical triad ataxia/gait disturbance, d ementia, urinary incontinence). Reviewed, dictated and finalized at location A. IMPRESSION: 1. Continued slight decrease in size of a small left posterior parafalcine subd ural hematoma. 2. Stable appearance of multiple small old infarcts in the bilateral cerebellar hemispheres, left frontal and parietal lobes and bilateral caudate nuclei. 3. Mild scattered white matter hypoattenuation consistent with chronic small ve ssel ischemic disease. 4. Symmetric enlargement of the ventricles most likely central predominant age- related volume loss although differential includes normal pressure hydrocephalu s (clinical triad ataxia/gait disturbance, dementia, urinary incontinence).
--- NOTE | ~2020-10-23 | CT_ITS ---
EXAMINATION: CT brain wo con EXAM DATE: 10/25/2020 08:44 INDICATION: Fall, head injury. TECHNIQUE: Spiral CT of the head was performed without contrast. Axial, coronal and sagittal images were reviewed. The dose-length product (DLP) for this examination was 605.33 mGy-cm. The exposure w as tailored according to patient size, and iterative reconstruction (ASIR) was used as additional dos e reduction technique. Comparison is made to prior examination from 10/23/2020. FINDINGS: There has been interval development of acute small to moderate-sized left-sided subdural he matoma along the falx, up to about 7 mm in thickness. Small old left frontal and parietal lobe infarc tions are unchanged. There is ventricular prominence out of proportion to sulci which is suspected mo st likely central atrophy rather than hydrocephalus. Normal pressure hydrocephalus cannot be exclude d (clinical triad ataxia/gait disturbance, dementia, urinary incontinence). There our punctate old bilateral caudate head lacunar infarctions. There are small old bilateral cere bellar infarctions. Bilateral cataract surgery. There is mild to moderate microangiopathy. No brain m ass or acute intraparenchymal hematoma. Moderate to severe mucoperiosteal thickening. Small right pos terior vertex scalp contusion. IMPRESSION: 1. Small to moderate size acute left-sided subdural hematoma. 2. Small right posterior vertex scalp contusion. 3. Small old infarctions. I phoned results to Sherri Vazquez MD at 10/25/2020 08:49 CDT, without success. I discussed w [facility] IM unit nurse Glenys Serna at 10/25/2020 08:55 CDT, Recommend neurosurgical evaluation. Reviewed, dictated and finalized at location B. IMPRESSION: 1. Small to moderate size acute left-sided subdural hematoma. 2. Small right posterior vertex scalp contusion. 3. Small old infarctions. I phoned results to Sherri Vazquez MD at 10/25/2020 08:49 CDT, without success. I discussed with IM unit nurse Glenys Serna at 10/25/2020 08:55 CDT, Dat mmend neurosurgical evaluation.
--- NOTE | ~2020-10-23 | XR_ITS ---
XR chest 1V portable DATE: 10/23/2020 17:43 INDICATION: Weakness, altered mental state. History of seizures. TECHNIQUE: Portable AP chest on 10/23/2020 at 1736 hours COMPARISON: 10/05/2020 AP and lateral chest FINDINGS: Cardiomegaly. There is pulmonary vascular congestion and redistribution. There is bilateral pulmonary hyperinflation suggesting COPD. There is left retrocardiac lower lobe atelectasis and/or consolidation. Obstructing endobronchial les ion should be considered. There is mild infiltrate or atelectasis in the right lower lung. Mild left pleural effusion is suggested. Diffuse osteopenia. IMPRESSION: Cardiomegaly, congestive changes Prominent left lower lobe atelectasis//or consolidation; obstructing endobronchial lesion cannot be e xcluded. Mild infiltrate or atelectasis at right lung base Mild left pleural effusion Bilateral hyperinflation suggesting COPD Reviewed, dictated and finalized at location A. IMPRESSION: Cardiomegaly, congestive changes Prominent left lower lobe atelectasis//or consolidation; obstructing endobronch ial lesion cannot be excluded. Mild infiltrate or atelectasis at right lung base Mild left pleural effusion Bilateral hyperinflation suggesting COPD
--- NOTE | ~2020-10-23 | CT_ITS ---
EXAMINATION: CT thoracic lumbar wo con EXAM DATE: 10/25/2020 08:51 INDICATION: Patient fall. Thoracolumbar pain. TECHNIQUE: Spiral CT thoracolumbar spine was performed without contrast. Axial, coronal and sagittal images of the thoracic spine were reviewed. Axial, coronal and sagittal images of the lumbar spine we re reviewed. The dose-length product (DLP) for this examination was 2011.97 mGy-cm. The exposure was tailored according to patient size (auto mA exposure control), and iterative reconstruction (ASIR) w as used as additional dose reduction technique. Correlation is made to CT abdomen pelvis 10/06/2020. FINDINGS: THORACIC SPINE: There is acute fracture line identified through the anterior cortex of the T11 verteb ral body extending toward the superior endplate. Mild loss of this vertebral body height centrally an d anteriorly, compression fracture. Mild chronic loss of other thoracic vertebral body heights. The v ertebral bodies are aligned in the AP dimension. Mild mid and lower thoracic disc disease and facet a rthropathy. There are layering pleural effusions bilaterally, appears to be large on the left. There is adjacent compressive atelectasis. LUMBAR SPINE: Chronic mild to moderate compression fracture of L2, mild at L4 and moderate chronic bu rst fracture of L5. These all appear unchanged correlating to a CT abdomen pelvis exam from earlier t his month. Mild to moderate lower lumbar central canal and neural foraminal stenosis. There is modera te to severe mid and lower lumbar facet arthropathy. No spondylolysis. The vertebral bodies are align ed in the AP dimension. Sacroiliac joints are intact. IMPRESSION: 1. Acute T11 mild compression fracture. 2. Multiple other chronic thoracolumbar fractures. 3. Lower lumbar predominant spondylosis. 4. Large left, small to moderate right pleural effusions. Adjacent atelectasis. I discussed acute subdural hematoma and T11 compression fracture with Sherri Vazquez MD at 09:01 CDT. Reviewed, dictated and finalized at location [facility]. IMPRESSION: 1. Acute T11 mild compression fracture. 2. Multiple other chronic thoracolumbar fractures. 3. Lower lumbar predominant spondylosis. 4. Large left, small to moderate right pleural effusions. Adjacent atelectasis . I discussed acute subdural hematoma and T11 compression fracture with Elma Vazquez MD at 10/25/2020 09:01 CDT.
--- NOTE | ~2020-10-23 | CT_ITS ---
EXAMINATION: CT brain wo con DATE: 10/23/2020 17:55 INDICATION: Fall. Confusion. Altered mental state. TECHNIQUE: Computed tomography (CT) of the head was performed without intravenous contrast. The mA wa s adjusted according to patient size. Iterative reconstruction technique was employed. Exam dose: 60 5.33 mGy-cm total exam DLP. COMPARISON: 10/06/2020 MR brain 10/05/2020 CT brain 07/15/2020 CT brain FINDINGS: Focal chronic infarcts are again noted in the cerebellum, left frontal and left parietal ar eas, stable since 10/05/2020. There is nonspecific diminished attenuation of the cerebral white matter, likely due to chronic small vessel ischemic changes. No intracranial mass lesion or hemorrhage, midline shift or mass effect or subdural or epidural hemat lj. There is central and cortical cerebral and cerebellar atrophy. Differential diagnosis for the ventric ular prominence includes normal pressure hydrocephalus. There is interval severe mucoperiosteal thickening of the right maxillary sinus, prominent increased opacification of the ethmoid air cells bilaterally. There is mild mucoperiosteal thickening of the sp henoid sinuses. IMPRESSION: Chronic cerebellar and left cerebral infarcts. No acute intracranial abnormality Paranasal sinus disease, considerably increased since 07/15/2020 Reviewed, dictated and finalized at Location [facility]. Reviewed, dictated and finalized at location A. IMPRESSION: Chronic cerebellar and left cerebral infarcts. No acute intracrani al abnormality Paranasal sinus disease, considerably increased since 07/15/2020
--- NOTE | ~2020-10-23 | CT_ITS ---
EXAMINATION: CT brain wo con INDICATION: Subdural hematoma COMPARISON: None TECHNIQUE: Standard unenhanced head CT. The dose-length product (DLP) was 605.33 mGy-cm. The mA was a djusted according to patient size. Iterative reconstruction technique was employed. FINDINGS: A small left parafalcine subdural hematoma is again seen posteriorly which is slightly decr eased in size with a maximum thickness of 5 mm, previously 7 mm. There is of prior infarction are not ed in the left frontal and parietal lobes. There is no acute intraparenchymal hemorrhage. No evidence of mass lesion. No evidence of acute infarction. There is mild periventricular and subcortical hypod ensity probably related to small vessel ischemic disease. There is moderate prominence of the ventric les, likely related to cerebral atrophy. Intracranial calcified cerebral atherosclerosis is noted. Th ere is no mass effect or midline shift. The orbits and soft tissues are unremarkable. There is modera te mucosal thickening of the paranasal sinuses. IMPRESSION: 1. Parafalcine subdural hematoma with slight decrease in size. 2. Age related findings. 3. Sinus disease. Reviewed, dictated and finalized at location A.
--- NOTE | 2020-10-23 17:22 | ECG_ITS ---
Measurements Intervals [place] Rate: 164 P: [place]: 0 QRS: -74 QRSD: 116 T: 4 QT: 271 QTc: 449 Interpretive Statements ATRIAL FLUTTER/TACHYCARDIA WITH RAPID VENTRICULAR RESPONSE RIGHT BUNDLE BRANCH BLOCK LEFT ANTERIOR FASCICULAR BLOCK ABNORMAL ECG Electronically Signed On 10-24-2020 8:15:13 CDT by Fernando Ruiz D.O.
--- NOTE | 2020-10-23 17:45 | PC.NURSE ---
Pt to radiology on monitor
[2020-10-23] MEDS: LACTATED RINGERS 2,100 ML/1,000 ML BAG 999 ML IV CONT ×3 (17:46→18:03)
--- NOTE | 2020-10-23 18:03 | ED.WEAKNESS ---
HPI - Weakness General Chief complaint: Weakness Stated complaint: AMS, mult falls, fever Time Seen by Provider: 10/23/20 17:26 Source: patient and EMS Mode of arrival: EMS Limitations: altered mental status and clinical condition History of Present Illness HPI Narrative: Patient is a 75-year-old male brought in by EMS due to confusion, generalized weakness causing repeated falls at home that started last night. Patient was also febrile upon arrival. According to family member patient usually alert and oriented x3. Patient had his Covid booster shot 2 days ago. Patient also recently finished chemotherapy due to lymphoma. Patient is a very poor historian due to altered mental status. Related Data Home Medications Medication Instructions Recorded Confirmed fluticasone propionate 50 mcg INTRANASAL DAILY 10/06/20 10/06/20 latanoprost 1 drp EACH EYE HS 10/06/20 10/06/20 topiramate See Rx Instructions .ROUTE .COMPLEX 10/06/20 10/06/20 valacyclovir 500 mg PO BID 10/06/20 10/06/20 Allergies Allergy/AdvReac Type Severity Reaction Status Date / Time tomato Allergy Unknown Verified 08/06/18 12:30 ONION Allergy Mild Uncoded 12/06/13 23:34 Review of Systems Review of Systems: All systems reviewed & are unremarkable except as noted in HPI and below Constitutional: Constitutional: Denies body ache(s), Denies excessive sweating, Denies fatigue and Denies headache(s) Eyes: Eyes: Denies blurry vision, Denies change in vision and Denies loss of vision ENT: Denies dizziness, Denies ear discharge, Denies headache(s), Denies lip swelling, Denies epistaxis, Denies nasal congestion, Denies neck pain, Denies throat swelling and Denies tongue swelling Cardiovascular: Cardiovascular: Denies chest pain, Denies chest pain at rest, Denies chest pain with activity, Denies diaphoresis, Denies rapid heart rate, Denies edema, Denies irregular heart rhythm, Denies lightheadedness, Denies palpitations, Denies dyspnea and Denies dyspnea on exertion Respiratory: Respiratory: Denies chest congestion, Denies cough, Denies hemoptysis, Denies dyspnea and Denies dyspnea on exertion Gastrointestinal: Gastrointestinal: Denies abdominal pain, Denies melena, Denies hematochezia, Denies diarrhea, Denies nausea, Denies vomiting and Denies hematemesis Musculoskeletal: Musculoskeletal: Denies abnormal gait, Denies deformity, Denies joint swelling, Denies limited range of motion, Denies neck pain and Denies numbness Neurologic: Denies Abnormal speech present, Denies confusion, Denies dizziness, Denies headache(s), Denies focal weakness, Denies loss of vision, Denies numbness, Denies Other visual disturbances and Denies Sensory deficit (Neuro) Psychiatric: Psychiatric: Denies confusion, Denies depression, Denies auditory hallucinations, Denies homicidal ideation and Denies suicidal ideation Endocrine: Endocrine: Denies cold intolerance, Denies excessive sweating, Denies fatigue, Denies heat intolerance and Denies palpitations Hematologic/Lymphatic: Hematologic/Lymphatic: Denies easy bleeding and Denies easy bruising Allergic/Immunologic: Allergic/Immunologic: Denies lip swelling, Denies throat swelling and Denies tongue swelling PMFSH Past Medical History Medical History Anemia CHI (closed head injury) Diarrhea Esophagitis Failure to thrive Lymphoma Seizures Surgical History Surgical History H/O prostatectomy History of appendectomy History of hernia surgery Family History Family History Mother Breast cancer Father Lymphoma Social History Social History Social History: Patient would like to be a full code and would like his son and daughter Kirill and Denise as his surrogate decision maker if needed. He has never smoked cigarettes. He
[2020-10-23 18:04] LABS: Hematocrit 27.4 % (42.0-52.0); Hemoglobin 8.7 g/dL (14.0-18.0); Immature Platelet Fraction Pct 6.2 % (0.9-11.2); Mean Corpuscular HGB Conc 31.8 g/dl (32-36); Mean Corpuscular Hemoglobin 32.7 pg (26-34); Mean Platelet Volume 13.8 fl (7.4-10.4); Platelet Count Result 88 k/mm3 (150-375); Red Blood Count 2.66 M/mm3 (4.6-6.20); Red Cell Distribution Width 17.4 % (11.5-14.5)
[2020-10-23 18:11] LABS: Lactic Acid Reflex 3.3 mmol/L (0.7-2.1)
[2020-10-23 18:15] LABS: INR 1.3; Partial Thromboplastin Time 30.9 SECONDS (22.3-36.8); Prothrombin Time 15.5 Seconds (11.1-14.7)
[2020-10-23 18:25] LABS: White Blood Count 1.8 K/mm3 (4.5-10.0)
[2020-10-23 18:34] LABS: Add Urine Microscopic? YES; Appearance Urine Cloudy (Clear); Bacteria Urine Trace /hpf; Bilirubin Urine Negative (Negative); Blood Urine 3+ (Negative); Color Urine Amber (Yellow); Glucose Urine UA Negative (Negative); Ketones Urine Negative (Negative); Leukocyte Esterase Ur Negative LEU/UL (Negative); Mucus Urine Rare /lpf; Nitrate Urine Negative (Negative); Protein Urine 2+ mg/dL (Negative); RBC Urine 0-2 /hpf (0-2); Specific Grav Ur 1.019 (1.001-1.035); Squamous Epithelial Cell Urine Occasional /hpf (Few); Urobilinogen Urine Negative mg/dL (<2.0)
[2020-10-23 18:44] LABS: Band Neutrophils Percent 13 % (0-6); Lymphocytes Absolute Manual 0.32 K/mm3 (1.1-4.5); Metamyelocytes Percent 2 %; Monocytes Absolute Manual 1.09 K/mm3 (0.1-0.90); Monocytes Percent Manual 61 % (3-9); Neutrophils Absolute Manual 0.34 K/mm3 (1.3-6.7); Neutrophils Percent Manual 6 % (46-73); Total Cells Counted 100
[2020-10-23 18:46] LABS: Alanine Aminotransferase 72 U/L (4-50); Albumin Level 4.2 g/dL (3.5-5.1); Alkaline Phosphatase 64 U/L (38-126); Anion Gap 13 mmol/L (8-16); Aspartate Amino Transferase 179 U/L (17-59); Bilirubin,Total 0.7 mg/dL (0.2-1.3); Blood Urea Nitrogen 60 mg/dL (9-20); CRP 15.5 mg/dL (<1.0); Calcium 8.7 mg/dL (8.4-10.2); Carbon Dioxide 17 mmol/L (22-30); Chloride 107 mmol/L (98-107); Estimated CRCL calculation 28 ml/min; Estimated Glomerular Filt Rate 31; Glucose 120 mg/dL (65-110); Potassium 4.3 mmol/L (3.4-5.0); Sodium 137 mmol/L (137-145)
[2020-10-23 18:47] LABS: Burr Cells 2+ (NORMAL); Ovalocytes 2+ (NORMAL); Platelet Estimate Decreased (Adequate); Tear Drop Cells 1+ (NORMAL)
--- NOTE | 2020-10-23 19:53 | PC.NURSE ---
Pt sees neurologist for epilepsy and seizure. Sees Dr Tony Kumar off [facility].
[2020-10-23 20:59] LABS: Reflex Lactic Acid Yes or No Add Lactic
[2020-10-23 21:36] LABS: Lactic Acid 0.7 mmol/L (0.7-2.1)
--- NOTE | 2020-10-23 21:36 | PC.NURSE ---
Pt has intermittent increased HR from 120-140s. aware. No new orders at this time.
--- NOTE | 2020-10-23 22:16 | PC.NURSE ---
Called patients' daughter to inform her patient will be admitted to room 205. Attempted to clarify allergies, daughter is unsure at this time but believes there are additional allergies other than tomatoes and onion. Clarified patient is a full code, daughter is POA.
--- NOTE | 2020-10-23 22:18 | PC.NURSE ---
Called Cindy in IMU to inform her of potential unknown allergies. Daughter to continue looking in MyChart and call back.
[2020-10-23] MEDS: LACTATED RINGERS 1,000 ML 125 ML IV CONT (22:57)
--- NOTE | 2020-10-23 23:22 | ADMGEN ---
This patient, Jonny Ivan, was admitted to IMU Room 205-02 at 2240 on 10/23/20. Patient/family oriented to hospital policies and general routines including ID bracelet, bed and alarms, visiting hours, pain management, procedures, bathroom and other care routines, personal items, smoking policy, room service/diet, and visiting hours. Information on how to activate the Rapid Response Team has been discussed. Patient/Family are encouraged to report perceived risks to care and to ask questions if they do not understand what they are told or what they should do.
--- NOTE | 2020-10-23 23:34 | PM.IMHP ---
H&P: HPI History of Present Illness Date/Time: 10/23/20 23:34 Chief Complaint: altered mental status Narrative: Patient is a 75-year-old male who is brought in due to confusion, generalized weakness and fall this afternoon and repeated falls prior to that. He is also noted to be febrile upon arrival in the ER with tachycardia in 150s to 60s. He recently got a COVID booster shot about a week ago. And has finished chemotherapy due to lymphoma in June 2020. He follows up with oncologist in [facility]. Patient in fell of is a poor historian and most of his history was taken from medical records. His rhythm from ER his noted to be atrial fibrillation with rapid ventricular rate with hypotension which improved after IV Tylenol and fluid bolus down to 80s to 90s. He was in 120s to 30s with AFib with RVR while I was evaluating but was not in distress. He converted to sinus rhythm spontaneously once I got out of the room. She does not report any history of atrial fibrillation in the past and does not endorse from the medical records as well. He is noted to have negative CT head along with negative CT neck. He had leukopenia with WBC of 1.8 chronic anemia of 8.7 with thrombocytopenia. A chest x-ray was noted to have left lower lobe pneumonia and is admitted for further evaluation and management of his sepsis likely related to pneumonia Review of Systems Review of Systems: - CONSTITUTIONAL: Denies weight loss, reports fever and chills. - HEENT: Denies changes in vision and hearing - RESPIRATORY: Denies SOB and cough. - CV: Denies palpitations and CP. - GI: Denies abdominal pain, nausea, vomiting and diarrhea. - : Denies dysuria and urinary frequency. - MSK: Denies myalgia and joint pain. - SKIN: Denies rash and pruritus. - NEUROLOGICAL: Denies headache and syncope. Reports recurrent fall - PSYCHIATRIC: Denies recent changes in mood. Denies anxiety and depression. All systems reviewed & are unremarkable except as noted in HPI and below Constitutional: Constitutional: Reports fatigue and Reports weakness Neurologic: Reports weakness Endocrine: Endocrine: Reports fatigue PMFSH Past Medical History Medical History Anemia CHI (closed head injury) Diarrhea Esophagitis Failure to thrive Lymphoma Seizures Surgical History Surgical History H/O prostatectomy History of appendectomy History of hernia surgery Family History Family History Mother Breast cancer Father Lymphoma Social History Social History Social History: Patient would like to be a full code and would like his son and daughter Kirill and Denise as his surrogate decision maker if needed. He has never smoked cigarettes. He drinks about 1-2 drinks socially a week if he goes out with his friends. 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 No drugs Smoking status: Never smoker Alcohol intake: current Drinks per week: 1 Gender identity (if verbalized by the patient): Male Spiritual care concerns: No Meds Home Medications and Allergies Home Medications Medication Instructions Recorded Confirmed Type fluticasone propionate 50 mcg INTRANASAL DAILY 10/06/20 10/23/20 History latanoprost 1 drp EACH EYE HS 10/06/20 10/23/20 History topiramate See Rx Instructions .ROUTE .COMPLEX 10/06/20 10/23/20 History valacyclovir 500 mg PO BID 10/06/20 10/23/20 History ferrous sulfate 325 mg PO DAILY #30 tablet 10/12/20 10/23/20 Rx mirtazapine [Remeron] 7.5 mg PO HS #15 tablet 10/12/20 10/23/20 Rx pantoprazole 40 mg PO QAM #30 tablet 10/12/20 10/23/20 Rx Allergies Allergy/AdvReac Type Severity Reaction Status Date / Time tomato Allergy Unknown Unknown Verified 10/23/20 22:14 ONION Allergy Mild Unknown Uncoded 10/23/20
[2020-10-24] VITALS (28 sets, daily range): BP systolic 94–124; BP diastolic 54–85; PULSE 59–167; RESP 12–20; TEMP 36.3–37.4; O2SAT 90–100
--- NOTE | 2020-10-24 00:02 | ECG_ITS ---
Measurements Intervals [place] Rate: 138 P: ID: 0 QRS: -61 QRSD: 120 T: 61 QT: 323 QTc: 490 Interpretive Statements ATRIAL FIBRILLATION WITH RAPID VENTRICULAR RESPONSE RIGHT BUNDLE BRANCH BLOCK LEFT ANTERIOR FASCICULAR BLOCK LOW VOLTAGE- LIMB LEADS ABNORMAL ECG Electronically Signed On 10-24-2020 8:31:01 CDT by Fernando Ruiz D.O.
[2020-10-24] MEDS: LACTATED RINGERS 1,000 ML 125 ML IV CONT ×2 (08:53→16:51)
[2020-10-24] MEDS: dilTIAZem HCl INJ 25 MG/5 ML VIAL 15 MG IV PUSH (09:13)
[2020-10-24] MEDS: TOPIRAMATE 25 MG TABLET 50 MG BY MOUTH ×2 (09:19→20:19)
[2020-10-24] MEDS: ENOXAPARIN 30 MG/0.3 ML SYRINGE SUB-Q (09:20)
[2020-10-24] MEDS: FLUTICASONE PROPIONATE 0.05% NA SPR 16 GM BTL (*BKC) 1 SPRAY NASAL (09:20)
[2020-10-24] MEDS: FERROUS SULFATE 324 MG TABLET PO (09:20)
[2020-10-24] MEDS: PANTOPRAZOLE 40 MG TABLET PO (09:20)
[2020-10-24] MEDS: valACYclovir HCL 500 MG TABLET PO ×2 (09:20→16:52)
[2020-10-24] MEDS: TOPIRAMATE 100 MG TABLET BY MOUTH ×2 (09:21→20:19)
--- NOTE | 2020-10-24 09:41 | PM.IMPN ---
Progress Note: A&P Assessment and Plan (1) Severe sepsis: Code(s): A41.9 - Sepsis, unspecified organism; R65.20 - Severe sepsis without septic shock Status: Acute (2) Pancytopenia: Code(s): D61.818 - Other pancytopenia Status: Acute (3) Pneumonia: Qualifiers: Laterality: left Lung location: unspecified part of lung Pneumonia type: due to unspecified organism Qualified Code(s): J18.9 - Pneumonia, unspecified organism Code(s): J18.9 - Pneumonia, unspecified organism Status: Acute (4) Lymphoma: Code(s): C85.90 - Non-Hodgkin lymphoma, unspecified, unspecified site Status: Acute (5) Seizure disorder: Code(s): G40.909 - Epilepsy, unspecified, not intractable, without status epilepticus Status: Acute (6) Generalized weakness: Code(s): R53.1 - Weakness Status: Acute (7) Acute kidney injury: Code(s): N17.9 - Acute kidney failure, unspecified Status: Acute Additional Plan # Sepsis due to pulmonary source with evidence of pneumonia and hypoxia, elevated creatinine at 2.1 on presentation. Mild hypotension which rapidly improved with IV had resuscitation with fever hypotension leukopenia and tachycardia # Left lower lobe pneumonia will cover with vancomycin and Zosyn. Will get CT chest to further evaluate, blood culture pending. # Lactic acidosis resolved with IV resuscitation # Pancytopenia with worsening leukopenia likely from sepsis underlying pancytopenia most likely related to chemotherapy/lymphoma # history of lymphoma status post chemotherapy apparently in remission # Acute kidney injury creatinine 2.1 baseline around 1, likely consistent with ATN in setting of sepsis and end organ dysfunction: granular casts on UA # Metabolic acidosis likely from above # Atrial fibrillation with rapid ventricular rate spontaneously converted to sinus rhythm but back now in RVR, initiate Dilt drip and titrate, cardiology consult # Recurrent falls: Head injury CT head negative # History of old CVAs CT head with chronic cerebellar and left cerebral infarcts # History of seizure disorder no breakthrough seizure in 8 years # Anemia recent EGD colonoscopy with no major findings # GERD # DVT prophylaxis: SCDs given low Hgb and platelets with increased bleeding risk # Code status: Full code, discussed on admission Subjective Date/time seen: 10/24/20 09:41 He did have an episode of atrial fibrillation with RVR overnight but did convert back to sinus rhythm with regular rate, spontaneously on his own. Systolic blood pressure 120-140s. Temperature was initially 100.2 when he 1st presented, but since that time has been afebrile. He feels tired this morning. Review of Systems Review of Systems: All systems reviewed & are unremarkable except as noted in HPI and below Exam Narrative: Gen: Alert, NAD Abd: Soft, NT, ND Heart: RRR Lungs: CTAB Ext: No bilateral lower extremity edema Objective Data Vital Signs Vital Signs: Vital Signs - 24 hr 10/23/20 17:25 10/23/20 17:32 10/23/20 18:23 Temperature 100.2 F H Pulse Rate 166 H 164 H 155 H Respiratory Rate 28 H 24 H Blood Pressure 104/72 103/69 Pulse Oximetry 100 100 10/23/20 18:24 10/23/20 18:34 10/23/20 18:45 Temperature Pulse Rate 154 H 154 H 154 H Respiratory Rate 24 H 22 H 23 H Blood Pressure Pulse Oximetry 100 100 100 10/23/20 18:46 10/23/20 19:00 10/23/20 19:01 Temperature Pulse Rate 155 H 153 H 155 H Respiratory Rate 23 H 23 H 23 H Blood Pressure 100/77 88/68 L Pulse Oximetry 100 100 10/23/20 19:23 10/23/20 19:36 10/23/20 19:46 Temperature Pulse Rate 155 H 99 95 Respiratory Rate 19 21 H 25 H Blood Pressure 108/78 Pulse Oximetry 100 97 100 10/23/20 19:47 10/23/20 20:13 10/23/20 20:15 Temperature Pulse Rate 95 83 94 Respiratory Rate 26 H 19 20 Blood Pressure Pulse Oximetry 99 98 100 10/23/20 20:16 10/23/20 20:30 10/23/20 21:0
[2020-10-24 10:11] LABS: Hematocrit 23.9 % (42.0-52.0); Hemoglobin 7.1 g/dL (14.0-18.0); Immature Granulocyte Absolute 0.03 K/mm3 (0.00-0.031); Immature Granulocyte Percent A 2.3 % (0-0.5); Immature Platelet Fraction Pct 5.6 % (0.9-11.2); Lymphocytes Percent Auto 7.8 % (18.3-44.2); Mean Corpuscular HGB Conc 29.7 g/dl (32-36); Mean Corpuscular Hemoglobin 31.8 pg (26-34); Mean Corpuscular Volume 107.2 fl (80-100); Mean Platelet Volume 11.7 fl (7.4-10.4); Monocytes Absolute Auto 1.1 K/mm3 (0.1-0.6); Monocytes Percent Auto 87.6 % (2.6-8.5); Neutrophils Percent Auto 2.3 % (45.5-73.1); Platelet Count Result 65 k/mm3 (150-375); Red Blood Count 2.23 M/mm3 (4.6-6.20); Red Cell Distribution Width 17.2 % (11.5-14.5)
[2020-10-24 10:23] LABS: Alanine Aminotransferase 72 U/L (4-50); Albumin Level 3.1 g/dL (3.5-5.1); Alkaline Phosphatase 52 U/L (38-126); Anion Gap 9 mmol/L (8-16); Aspartate Amino Transferase 179 U/L (17-59); Bilirubin,Total 0.6 mg/dL (0.2-1.3); Blood Urea Nitrogen 39 mg/dL (9-20); Calcium 8.3 mg/dL (8.4-10.2); Carbon Dioxide 17 mmol/L (22-30); Chloride 109 mmol/L (98-107); Estimated CRCL calculation 38 ml/min; Estimated Glomerular Filt Rate 46; Glucose 126 mg/dL (65-110); Phosphorus 3.3 mg/dL (2.5-4.5); Potassium 3.5 mmol/L (3.4-5.0); Sodium 135 mmol/L (137-145); White Blood Count 1.3 K/mm3 (4.5-10.0)
[2020-10-24 10:25] LABS: Ovalocytes 1+ (NORMAL); Platelet Estimate Decreased (Adequate); Poikilocytosis 3+ (NORMAL)
[2020-10-24 10:26] LABS: Acanthocytes 1+ (NORMAL); Schistocytes 1+ (NORMAL)
--- NOTE | 2020-10-24 12:21 | PM.CNCAR ---
Assessment and Plan Additional Plan This 75-year-old man with paroxysmal atrial fibrillation/atrial flutter. He is primarily ill with results of his lymphoma chemotherapy he is anemic neutropenic thrombocytopenic as well. He felt by x-ray to have some left lower lobe pneumonia as well. He appears to be going in and out of AF alternating with sinus rhythm. I am going to start some sotalol treatment to try to stabilize this and maintain sinus rhythm. Given his anemia and thrombocytopenia I am not going to start anticoagulation at this time the school that would seem to be higher than the benefit. Will obtain an echocardiogram tomorrow and follow him along with you thank you for asking me to see this very nice but unfortunate man Isidro Schultz MD [facility] History of Present Illness History of Present Illness Consult date/time: 10/24/20 12:21 Consult reason: atrial fibrillation Reason For Visit: Severe sepsis, pneumonia Narrative: This is a very pleasant rather ill 75-year-old man who I am seeing at the request of the hospitalist to participate in evaluation and management of atrial fibrillation. The patient is not known to have any cardiac problems prior to this was brought to the hospital yesterday by his family with complaints of significant weakness and lack of energy. He was seen in the emergency room and down there was felt to have developed a left lower lobe pneumonia but he was also tachycardic with an EKG that initially appeared to show atrial flutter with rapid ventricular response and following admission to the hospital has been between sinus rhythm and atrial for fibrillation. The patient is not aware of any sense of tachycardia or palpitations he does not have any chest pain breathing difficulty he has never had a syncopal episode he does not remember having any cardiac problems in the past he states most of his adult life he was a healthy rather athletic man who states that he was proud of his cardiovascular fitness. Unfortunately he developed malignancy with a lymphoma and has undergone significant chemotherapy resulting in rather poor health in recent months. He is followed by oncologist elsewhere I believe because of this he is neutropenic anemic and thrombocytopenic as well. His EKG shows atrial fibrillation with right bundle branch block and left anterior superior hemiblock. Laboratory data demonstrates evidence of some renal insufficiency which has improved from yesterday to today with some hydration. He is rather anemic however with a hemoglobin of 7 and severely neutropenic. Review of Systems Constitutional: Constitutional: Reports fatigue and Reports weakness Eyes: Eyes: Reports no additional eye complaints ENT: Reports system reviewed and no additional complaints, except as documented Cardiovascular: Cardiovascular: Reports no additional cardiovascular complaints Respiratory: Respiratory: Reports dyspnea on exertion Gastrointestinal: Gastrointestinal: Reports no additional gastrointestinal complaints Musculoskeletal: Musculoskeletal: Reports no additional musculoskeletal complaints Integumentary/Breasts: Skin/Breast: Reports system reviewed and no additional complaints, except as docu Neurologic: Reports system reviewed and no additional complaints, except as documented Psychiatric: Psychiatric: Reports no additional psychiatric complaints Endocrine: Endocrine: Reports no additional endocrine complaints Hematologic/Lymphatic: Hematologic/Lymphatic: Reports as per HPI Allergic/Immunologic: Allergic/Immunologic: Reports no additional allergic/immunologic complaints PMFSH Past Medical History Medical History Anemia CHI (closed head injury) Diarrhea Esophagitis Failure to thrive Lymphoma Seizures Surgical History Surgical History H/O prostatectomy History of appendectomy History of hernia crockett
[2020-10-24] MEDS: SOTALOL HCL 80 MG TABLET PO ×2 (14:04→20:20)
--- NOTE | 2020-10-24 16:58 | ECG_ITS ---
Measurements Intervals [place] Rate: 62 P: 19 PA: 142 QRS: -29 QRSD: 119 T: 32 QT: 470 QTc: 480 Interpretive Statements SINUS RHYTHM INCOMPLETE RIGHT BUNDLE BRANCH BLOCK BORDERLINE ECG Electronically Signed On 10-29-2020 13:29:10 CDT by Fernando Ruiz D.O.
[2020-10-24] MEDS: SODIUM CHLORIDE 0.9% IV 250 ML 30 ML (17:58)
[2020-10-24] MEDS: LATANOPROST 0.005% OP SOLN 2.5 ML BTL 1 DROP EACH EYE (20:19)
--- NOTE | 2020-10-24 22:20 | ECG_ITS ---
Measurements Intervals [place] Rate: 60 P: 61 FL: 160 QRS: -26 QRSD: 120 T: 36 QT: 498 QTc: 498 Interpretive Statements SINUS RHYTHM RIGHT BUNDLE BRANCH BLOCK BASELINE ARTIFACT- I, II, III, AVR, AVL, AVF ABNORMAL ECG Electronically Signed On 10-25-2020 6:01:41 CDT by Fernando Ruiz D.O.
[2020-10-25] VITALS (20 sets, daily range): BP systolic 112–146; BP diastolic 64–83; PULSE 56–67; RESP 12–18; TEMP 36.1–36.6; O2SAT 92–100
[2020-10-25] MEDS: SODIUM CHLOR 3% 15 ML NEB (RESPIRATORY THERAPY) 6 ML INHALATION (05:44)
[2020-10-25 05:45] LABS: Hematocrit 26.8 % (42.0-52.0); Hemoglobin 8.4 g/dL (14.0-18.0); Immature Granulocyte Absolute 0.01 K/mm3 (0.00-0.031); Immature Granulocyte Percent A 0.8 % (0-0.5); Immature Platelet Fraction Pct 8.6 % (0.9-11.2); Lymphocytes Absolute Auto 0.24 K/mm3 (0.9-3.2); Lymphocytes Percent Auto 18.3 % (18.3-44.2); Mean Corpuscular HGB Conc 31.3 g/dl (32-36); Mean Corpuscular Volume 98.9 fl (80-100); Mean Platelet Volume 13.6 fl (7.4-10.4); Monocytes Percent Auto 78.6 % (2.6-8.5); Neutrophils Percent Auto 2.3 % (45.5-73.1); Platelet Count Result 60 k/mm3 (150-375); Red Blood Count 2.71 M/mm3 (4.6-6.20); Red Cell Distribution Width 18.6 % (11.5-14.5)
[2020-10-25 06:24] LABS: Alanine Aminotransferase 67 U/L (4-50); Albumin Level 2.9 g/dL (3.5-5.1); Alkaline Phosphatase 50 U/L (38-126); Anion Gap 7 mmol/L (8-16); Aspartate Amino Transferase 105 U/L (17-59); Bilirubin,Total 0.6 mg/dL (0.2-1.3); Blood Urea Nitrogen 32 mg/dL (9-20); CRP 14.2 mg/dL (<1.0); Calcium 8.2 mg/dL (8.4-10.2); Carbon Dioxide 20 mmol/L (22-30); Chloride 108 mmol/L (98-107); Estimated CRCL calculation 44 ml/min; Estimated Glomerular Filt Rate 54; Glucose 95 mg/dL (65-110); Potassium 3.6 mmol/L (3.4-5.0); Sodium 135 mmol/L (137-145)
[2020-10-25 06:29] LABS: Platelet Estimate Decreased (Adequate); White Blood Count 1.3 K/mm3 (4.5-10.0)
[2020-10-25 06:30] LABS: Poikilocytosis 1+ (NORMAL); Schistocytes 1+ (NORMAL)
[2020-10-25 06:33] LABS: Ovalocytes 1+ (NORMAL)
[2020-10-25 08:14] LABS: Glucose Point of Care 84 mg/dl (65-105)
[2020-10-25 09:29] LABS: EDCOVIDSCREEN Negative (Negative)
[2020-10-25] MEDS: FERROUS SULFATE 324 MG TABLET PO (10:47)
[2020-10-25] MEDS: SOTALOL HCL 80 MG TABLET PO (10:47)
[2020-10-25] MEDS: valACYclovir HCL 500 MG TABLET PO ×2 (10:48→18:00)
[2020-10-25] MEDS: TOPIRAMATE 100 MG TABLET BY MOUTH ×2 (10:48→20:18)
[2020-10-25] MEDS: TOPIRAMATE 25 MG TABLET 50 MG BY MOUTH ×2 (10:48→20:31)
[2020-10-25] MEDS: PANTOPRAZOLE 40 MG TABLET PO (10:48)
[2020-10-25] MEDS: FLUTICASONE PROPIONATE 0.05% NA SPR 16 GM BTL (*BKC) 1 SPRAY NASAL (10:48)
[2020-10-25] MEDS: LACTATED RINGERS 1,000 ML 125 ML IV CONT ×2 (10:49→22:30)
--- NOTE | 2020-10-25 10:52 | PM.TDS ---
Transfer Discharge Sum: Prov Provider Date of admission: 10/23/20 20:44 Primary care physician: ALEXANDRU,ISIDRO Pulido M.D. Admitting clinician: Arley Benentt MD Consults: 10/24/20 Consult to Physician Routine Comment: called echange with consult information Consulting Provider: Chris Stinson cupola mechanic/MD group to consult: Hematology/Oncology Reason for consultation: Worsening Pancytopenia, recent chemo for lymphoma Has provider been notified: Yes Consult to Physician Routine Comment: called exchange with consult Consulting Provider: Hal Valdovinos cupola mechanic/MD group to consult: Cardiology Reason for consultation: New onset atrial fibrillation Has provider been notified: Yes DS: Admitting Diagnosis Admitting Diagnosis Weakness, shortness of breath DS: Discharge Diagnosis Discharge Diagnosis (1) Severe sepsis: Code(s): A41.9 - Sepsis, unspecified organism; R65.20 - Severe sepsis without septic shock Status: Acute (2) Pancytopenia: Code(s): D61.818 - Other pancytopenia Status: Acute (3) Pneumonia: Qualifiers: Laterality: left Lung location: unspecified part of lung Pneumonia type: due to unspecified organism Qualified Code(s): J18.9 - Pneumonia, unspecified organism Code(s): J18.9 - Pneumonia, unspecified organism Status: Acute (4) Lymphoma: Code(s): C85.90 - Non-Hodgkin lymphoma, unspecified, unspecified site Status: Acute (5) Seizure disorder: Code(s): G40.909 - Epilepsy, unspecified, not intractable, without status epilepticus Status: Acute (6) Generalized weakness: Code(s): R53.1 - Weakness Status: Acute (7) Acute kidney injury: Code(s): N17.9 - Acute kidney failure, unspecified Status: Acute Transfer Discharge Sum: Med Medications Active and Home Medications: Home Medications fluticasone propionate 50 mcg INTRANASAL DAILY 10/06/20 [History Confirmed 10/23/20] latanoprost 1 drp EACH EYE HS 10/06/20 [History Confirmed 10/23/20] topiramate See Rx Instructions .ROUTE .COMPLEX 10/06/20 [History Confirmed 10/23/20] valacyclovir 500 mg PO BID 10/06/20 [History Confirmed 10/23/20] ferrous sulfate 325 mg PO DAILY #30 tablet 10/12/20 [Rx Confirmed 10/23/20] mirtazapine [Remeron] 7.5 mg PO HS #15 tablet 10/12/20 [Rx Confirmed 10/23/20] pantoprazole 40 mg PO QAM #30 tablet 10/12/20 [Rx Confirmed 10/23/20] Active Medications Albuterol (Albuterol Sulfate Neb 2.5 Mg/0.5 Ml Inh) 2.5 mg INHALATION Q4HRT PRN PRN Reason: Shortness Of Breath Ferrous Sulfate (Ferrous Sulfate 324 Mg Tablet) 324 mg PO DAILY@0800 [facility] Last Admin: 10/25/20 10:47 Dose: 324 mg Documented by: Fluticasone Propionate (Fluticasone Propionate 0.05% Na Spr 16 Gm Btl (*Bkc)) 1 spray NASAL DAILY [facility] Last Admin: 10/25/20 10:48 Dose: 1 spray Documented by: Lactated Ringer's (Lr - Lactated Ringers Iv) 1,000 mls @ 125 mls/hr IV CONT .Q8H [facility] Last Admin: 10/25/20 10:49 Dose: 125 mls/hr Documented by: Vancomycin HCl (Vancomycin 1,000 Mg/D5w 250 Ml) 1,000 mg in 250 mls @ 250 mls/hr IVPB Q24H [facility] Last Admin: 10/25/20 10:51 Dose: 250 mls/hr Documented by: Imipenem/Cilastatin Sodium (Primaxin 500 Mg/D5w 100 Ml) 500 mg in 100 mls @ 300 mls/hr IVPB Q8HR [facility] Sodium Chloride (Normal Saline Iv) 250 mls @ 30 mls/hr IV CONT .Q8H20M [facility] Stop: 10/25/20 17:46 Latanoprost (Latanoprost 0.005% Op Soln 2.5 Ml Btl) 1 drop EACH EYE HS [facility] Last Admin: 10/24/20 20:19 Dose: 1 drop Documented by: Pantoprazole Sodium (Pantoprazole 40 Mg Tablet) 40 mg PO QAM [facility] Last Admin: 10/25/20 10:48 Dose: 40 mg Documented by: Sodium Chloride (Sodium Chlor 3% 15 Ml Neb (Respiratory Therapy)) 6 ml INHALATION DAILY@0500 [facility] Stop: 10/27/20 05:01 Last Admin: 10/25/20 05:44 Dose: 6 ml Documented by: Sotalol HCl (Sotalol Hcl 80 Mg Tablet) 80 mg PO Q12HR [facility] Last Admin: 10/25/20 10:47 Dose: 80 mg Documented by: Topiramate (Topiramate
--- NOTE | 2020-10-25 12:19 | PM.PNCARD ---
Progress Note: A&P Assessment and Plan (1) Paroxysmal atrial fibrillation: Code(s): I48.0 - Paroxysmal atrial fibrillation Status: Acute Assessment and Plan: Maintaining sinus rhythm on Sotalol thus far. 12 lead EKG now to assess QTc. Calculated QTc by EKG 10/24 at 2240 498msec (after second dose of Sotalol 80mg although inital dose 10/24 at 1404, second dose 2020, and third dose 10/25 at 1047). Underlying RBBB confounding measurement and QTc using simplified Bogossian formula yields QTc around 420msec with underlying RBBB which is acceptable. If QTc significantly prolonged will need to discontinue, monitor QTc and initiate alternative therapy such as Amiodarone given circumstances. Cardiology consultation upon arrival to outside facility advised. Recommendations to follow after repeat EKG now. Important to monitor for risk for potential life-threatening ventricular arrhythmias such as Torsades. No ventricular arrhythmias thus far on telemetry. Cont to monitor closely at outside facility. Cr 1.3 GFR this AM. Systemic A/C held due to fall and subdural hematoma. (2) Encounter for monitoring sotalol therapy: Code(s): Z51.81 - Encounter for therapeutic drug level monitoring; Z79.899 - Other emt intermediate (current) drug therapy Status: Acute Assessment and Plan: See above. (3) SDH (subdural hematoma): Code(s): S06.5X9A - Traumatic subdural hemorrhage with loss of consciousness of unspecified duration, initial encounter Status: Acute Assessment and Plan: Traumatic status post fall this morning is reported. Anticoagulation held. Awaiting transfer to outside facility with neurosurgery availability (4) Pancytopenia: Code(s): D61.818 - Other pancytopenia Status: Acute Assessment and Plan: Per primary service and Oncology. (5) Lymphoma: Code(s): C85.90 - Non-Hodgkin lymphoma, unspecified, unspecified site Status: Acute Assessment and Plan: On chemotherapy. Oncology following. (6) Severe sepsis: Code(s): A41.9 - Sepsis, unspecified organism; R65.20 - Severe sepsis without septic shock Status: Acute Assessment and Plan: Remains on broad-spectrum antibiotics. Management per primary service. Subjective Date/time seen: Date of service: 10/25/20 12:19 Follow-up for atrial fibrillation Patient apparently got out of bed unassisted and fell suffering a subdural hematoma for which he is being transferred to [facility] for neurosurgical service is not available at [place]. He was able to take oral medications. He is maintaining sinus rhythm on telemetry. He received sotalol 80 mg this morning. When asked patient denies having fallen. He is confused with a sitter at bedside. He denies chest pain, palpitation, shortness of breath or dizziness. Review of Systems Review of Systems: All systems reviewed & are unremarkable except as noted in HPI and below ROS unobtainable: Yes unobtainable due to mental status Constitutional: Constitutional: Reports as per HPI, Reports fatigue and Reports weakness Eyes: Eyes: Reports as per HPI and Reports no additional eye complaints ENT: Reports system reviewed and no additional complaints, except as documented and Reports as per HPI Cardiovascular: Cardiovascular: Reports as per HPI, Reports no additional cardiovascular complaints and Reports dyspnea on exertion Respiratory: Respiratory: Reports as per HPI and Reports dyspnea on exertion Gastrointestinal: Gastrointestinal: Reports as per HPI and Reports no additional gastrointestinal complaints Genitourinary: Genitourinary: Reports as per HPI Musculoskeletal: Musculoskeletal: Reports no additional musculoskeletal complaints and Reports as per HPI Integumentary/Breasts: Skin/Breast: Reports system reviewed and no additional complaints, except as docu and Reports as per HPI Neurologic: Reports system reviewed and no additional c
--- NOTE | 2020-10-25 12:25 | ECG_ITS ---
Measurements Intervals [place] Rate: 61 P: 32 [place]: 144 QRS: -34 QRSD: 125 T: 13 QT: 501 QTc: 506 Interpretive Statements SINUS RHYTHM LEFT AXIS DEVIATION RIGHT BUNDLE BRANCH BLOCK ABNORMAL ECG Electronically Signed On 10-25-2020 14:00:05 CDT by Fernando Ruiz D.O.
[2020-10-25] MEDS: SODIUM CHLORIDE 0.9% IV 250 ML 30 ML IV CONT (12:41)
--- NOTE | 2020-10-25 13:50 | PC.NURSE ---
Spoke with Dr. Jones regarding STAT Head CT results at 08:55. I immediately called Dr. Vazquez who answered and I told him the results and gave him the number to call Dr. Jones directly to speak about the results.
--- NOTE | 2020-10-25 13:51 | PC.NURSE ---
Dr. Vazquez called to inform me at approximately 09:30 that he has contacted [facility] and spoken to a hospitalist and a neurosurgeon regarding transfer. He stated the neurosurgeon wanted one unit of platelets given and the orders were placed by Dr. Vazquez. Dr. Vazquez also stated that the spoke with the patients daughter and Ina [place], and updated her regarding her fathers status and she agreed to the transfer.
--- NOTE | 2020-10-25 13:57 | PM.IMPN ---
Progress Note: A&P Assessment and Plan (1) Severe sepsis: Code(s): A41.9 - Sepsis, unspecified organism; R65.20 - Severe sepsis without septic shock Status: Acute (2) Pancytopenia: Code(s): D61.818 - Other pancytopenia Status: Acute (3) Pneumonia: Qualifiers: Laterality: left Lung location: unspecified part of lung Pneumonia type: due to unspecified organism Qualified Code(s): J18.9 - Pneumonia, unspecified organism Code(s): J18.9 - Pneumonia, unspecified organism Status: Acute (4) Lymphoma: Code(s): C85.90 - Non-Hodgkin lymphoma, unspecified, unspecified site Status: Acute (5) Seizure disorder: Code(s): G40.909 - Epilepsy, unspecified, not intractable, without status epilepticus Status: Acute (6) Generalized weakness: Code(s): R53.1 - Weakness Status: Acute (7) Acute kidney injury: Code(s): N17.9 - Acute kidney failure, unspecified Status: Acute Additional Plan # Sepsis due to pulmonary source with evidence of pneumonia and hypoxia, elevated creatinine at 2.1 on presentation. Mild hypotension which rapidly improved with IV had resuscitation with fever hypotension leukopenia and tachycardia # Left lower lobe pneumonia will cover with vancomycin and imipenem given his low WBC. Blood cultures pending. CT chest showed bilateral pleural effusions L > R, with compressive atelectasis. # Lactic acidosis resolved with IV resuscitation # Pancytopenia with worsening leukopenia likely from sepsis underlying pancytopenia most likely related to chemotherapy/lymphoma # history of lymphoma status post chemotherapy apparently in remission # Acute kidney injury creatinine 2.1 baseline around 1, likely consistent with ATN in setting of sepsis and end organ dysfunction: granular casts on UA, improving # Metabolic acidosis likely from above # Atrial fibrillation with rapid ventricular rate: appreciate cardiology, initiated on sotalol. 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 Plan for transfer today. Continue neuro-checks. His mental status and neuralgic status has been stable and unchanged from yesterday. He is not on anticoagulants (was on prophylactic SubQ enoxaparin 30 mg dose 10/24 AM). He will be transfused one unit of platelets per [facility] of [facility] prior to [facility]. I did call and discuss the events with daughter Ina and she is in agreement with the transfer plan. # DVT prophylaxis: SCDs given low Hgb and platelets with increased bleeding risk # Code status: Full code, discussed on admission Subjective Date/time seen: 10/25/20 13:57 His night was uneventful. However, unfortunately this morning he got up on his own despite repeated redirection, fell and hit his head. CT scan showed subdural hematoma 7 mm and T11 acute vertebral fracture. His mental status is at baseline. Hemodynamically stable. Not complaining of any pain. Review of Systems Review of Systems: All systems reviewed & are unremarkable except as noted in HPI and below Exam Narrative: Gen: Alert, NAD, oriented to self and place Abd: Soft, NT, ND Heart: RRR Lungs: CTAB Ext:No lower extremity edema Extrem: General: normal exam except as noted and no edema Objective Data Vital Signs Vital Signs: Vital Signs - 24 hr 10/24/20 14:00 10/24/20 14:04 10/24/20 16:00 Temperature 98.2 F Pulse Rate 120 H 98 62 Respiratory Rate 12 Blood Pressure 94/64 L Pulse Oximetry 98 10/24/20 17:49 10/24/20 18:00 10/24/20 18:05 Temperature 97.4 F L 98.1 F Pulse Rate 62 61 62 Respiratory Rate 16 16 Blood Pressure 100/58 L 1
[2020-10-25] MEDS: PHYTONADIONE 5 MG TABLET PO (15:10)
[2020-10-25 16:33] LABS: Hematocrit 27.1 % (42.0-52.0); Hemoglobin 8.7 g/dL (14.0-18.0); Mean Corpuscular HGB Conc 32.1 g/dl (32-36); Mean Corpuscular Hemoglobin 31.2 pg (26-34); Mean Corpuscular Volume 97.1 fl (80-100); Mean Platelet Volume 12.2 fl (7.4-10.4); Platelet Count Result 99 k/mm3 (150-375); Red Blood Count 2.79 M/mm3 (4.6-6.20); Red Cell Distribution Width 18.4 % (11.5-14.5)
[2020-10-25 16:53] LABS: White Blood Count 1.1 K/mm3 (4.5-10.0)
[2020-10-25] MEDS: LATANOPROST 0.005% OP SOLN 2.5 ML BTL 1 DROP EACH EYE (20:17)
[2020-10-25] MEDS: METOPROLOL TARTRATE 25 MG TABLET PO (20:31)
[2020-10-25 23:32] LABS: SARS-CoV-2 RNA PCR Negative
[2020-10-26] VITALS (15 sets, daily range): BP systolic 124–148; BP diastolic 51–91; PULSE 48–75; RESP 16–22; TEMP 35.7–36.7; O2SAT 90–100
--- NOTE | 2020-10-26 | ECHO_ITS ---
Patient Info Name: Jonny Ivan Age: 75 years : 1945 Gender: Male Ht: 71 in Wt: 154 lbs BSA: 1.87 m2 HR: 61 bpm BP: 124 / 51 mmHg Heart Rhythm: Sinus Rhythm Exam Date: 10/26/2020 8:18 AM Exam Location: [facility] Patient Status: Inpatient Admit Date: 10/23/2020 Staff Ordering Physician: Sherri Vazquez MD Back Closer: Sky Perez, ELLEN, RT Attending Provider: Sherri Vazquez MD Referring Physician: George ARCE; Exam Type: CA echo doppler color flow Study Info Indications I48.1 - Persistent atrial fibrillation Complete two-dimensional, color flow and Doppler transthoracic echocardiogram is performed. Strain analysis performed. Summary 1. Complete two-dimensional, color flow and Doppler transthoracic echocardiogram is performed. 2. Left ventricular systolic function is mildly reduced, estimated at 50%. 3. Technically difficult study with limited views. Regional wall motion assessment limited due to poor endomyocardial border definition. 4. There is mildly increased left ventricular wall thickness. 5. Left ventricular septal wall motion is abnormal with septal motion related to bundle branch block. 6. The left ventricular diastolic function is grade I diastolic dysfunction. 7. There is mild to moderate aortic valve regurgitation. 8. There is mild to moderate mitral valve regurgitation. 9. There is mild tricuspid valve regurgitation. 10. Mild pulmonary hypertension, estimated pulmonary arterial systolic pressure is 38 mmHg. 11. Dilated inferior vena cava with <50% collapse upon inspiration consistent with elevated right atrial pressure, 10 mmHg. Left Ventricle Left ventricular systolic function is mildly reduced, estimated at 50%. Technically difficult study with limited views. Regional wall motion assessment limited due to poor endomyocardial border definition. Left ventricular chamber dimension is normal. There is mildly increased left ventricular wall thickness. Left ventricular septal wall motion is abnormal with septal motion related to bundle branch block. The left ventricular diastolic function is grade I diastolic dysfunction. Global longitudinal strain is mildly elevated at -16 %. Right Ventricle Right ventricular chamber dimension is normal. Right ventricular systolic function is reduced. Left Atria Left atrial chamber dimension is normal. Right Atria Right atrial chamber dimension is mildly enlarged. Aortic Valve The aortic valve is not well visualized. There is no aortic valve stenosis. There is mild to moderate aortic valve regurgitation. Pulmonic Valve The pulmonic valve is not well visualized. Mitral Valve The mitral valve has normal leaflets. There is mild to moderate mitral valve regurgitation. The mitral valve annulus is mildly calcified. Tricuspid Valve The tricuspid valve leaflets are normal. There is mild tricuspid valve regurgitation. Mild pulmonary hypertension, estimated pulmonary arterial systolic pressure is 38 mmHg. Pericardium/Pleural The pericardium appears normal. There is small pericardial effusion. Inferior Vena Cava Dilated inferior vena cava with <50% collapse upon inspiration consistent with elevated right atrial pressure, 10 mmHg. Aorta The aortic root size at the sinus of Valsalva is mildly dilated. Left Ventricular Outflow Tract Name Value Normal
[2020-10-26 05:38] LABS: Hematocrit 29.4 % (42.0-52.0); Hemoglobin 9.4 g/dL (14.0-18.0); Immature Granulocyte Absolute 0.01 K/mm3 (0.00-0.031); Immature Granulocyte Percent A 0.9 % (0-0.5); Lymphocytes Absolute Auto 0.29 K/mm3 (0.9-3.2); Lymphocytes Percent Auto 26.1 % (18.3-44.2); Mean Corpuscular Hemoglobin 30.9 pg (26-34); Mean Corpuscular Volume 96.7 fl (80-100); Mean Platelet Volume 12.5 fl (7.4-10.4); Monocytes Absolute Auto 0.8 K/mm3 (0.1-0.6); Monocytes Percent Auto 69.4 % (2.6-8.5); Neutrophils Percent Auto 3.6 % (45.5-73.1); Platelet Count Result 102 k/mm3 (150-375); Red Blood Count 3.04 M/mm3 (4.6-6.20); Red Cell Distribution Width 17.9 % (11.5-14.5)
[2020-10-26 05:58] LABS: White Blood Count 1.1 K/mm3 (4.5-10.0)
[2020-10-26 06:01] LABS: Platelet Estimate Decreased (Adequate)
[2020-10-26 06:02] LABS: Anisocytosis 1+ (NORMAL)
[2020-10-26 06:04] LABS: Anion Gap 7 mmol/L (8-16); Blood Urea Nitrogen 22 mg/dL (9-20); CRP 5.5 mg/dL (<1.0); Calcium 8.3 mg/dL (8.4-10.2); Carbon Dioxide 21 mmol/L (22-30); Chloride 106 mmol/L (98-107); Estimated CRCL calculation 51 ml/min; Estimated Glomerular Filt Rate > 60; Glucose 96 mg/dL (65-110); Potassium 3.7 mmol/L (3.4-5.0); Sodium 134 mmol/L (137-145)
--- NOTE | 2020-10-26 09:46 | ECG_ITS ---
Measurements Intervals [place] Rate: 65 P: 24 WV: 144 QRS: -33 QRSD: 125 T: 21 QT: 491 QTc: 513 Interpretive Statements SINUS RHYTHM ATRIAL PREMATURE COMPLEX LEFT AXIS DEVIATION RIGHT BUNDLE BRANCH BLOCK BASELINE WANDER- V4, V6 ABNORMAL ECG Electronically Signed On 10-26-2020 10:11:54 CDT by Fernando Ruiz D.O.
[2020-10-26] MEDS: LACTATED RINGERS 1,000 ML 125 ML IV CONT (09:53)
[2020-10-26] MEDS: valACYclovir HCL 500 MG TABLET PO ×2 (09:54→16:46)
[2020-10-26] MEDS: TOPIRAMATE 25 MG TABLET 50 MG BY MOUTH ×2 (09:54→21:08)
[2020-10-26] MEDS: PANTOPRAZOLE 40 MG TABLET PO (09:54)
[2020-10-26] MEDS: TOPIRAMATE 100 MG TABLET BY MOUTH ×2 (09:54→21:09)
[2020-10-26] MEDS: FERROUS SULFATE 324 MG TABLET PO (09:54)
[2020-10-26] MEDS: METOPROLOL TARTRATE 25 MG TABLET PO ×2 (09:58→21:08)
[2020-10-26] MEDS: FLUTICASONE PROPIONATE 0.05% NA SPR 16 GM BTL (*BKC) 1 SPRAY NASAL (09:58)
--- NOTE | 2020-10-26 12:03 | PM.IMPN ---
Progress Note: A&P Assessment and Plan (1) Severe sepsis: Code(s): A41.9 - Sepsis, unspecified organism; R65.20 - Severe sepsis without septic shock Status: Acute (2) Pancytopenia: Code(s): D61.818 - Other pancytopenia Status: Acute (3) Pneumonia: Qualifiers: Laterality: left Lung location: unspecified part of lung Pneumonia type: due to unspecified organism Qualified Code(s): J18.9 - Pneumonia, unspecified organism Code(s): J18.9 - Pneumonia, unspecified organism Status: Acute (4) Lymphoma: Code(s): C85.90 - Non-Hodgkin lymphoma, unspecified, unspecified site Status: Acute (5) Seizure disorder: Code(s): G40.909 - Epilepsy, unspecified, not intractable, without status epilepticus Status: Acute (6) Generalized weakness: Code(s): R53.1 - Weakness Status: Acute (7) Acute kidney injury: Code(s): N17.9 - Acute kidney failure, unspecified Status: Acute Additional Plan # Sepsis due to pulmonary source with evidence of pneumonia and hypoxia, elevated creatinine at 2.1 on presentation. Mild hypotension which rapidly improved with IV had resuscitation with fever hypotension leukopenia and tachycardia # Left lower lobe pneumonia will cover with vancomycin and imipenem given his low WBC. Blood cultures pending. CT chest showed bilateral pleural effusions L > R, with compressive atelectasis. # Lactic acidosis resolved with IV resuscitation # Pancytopenia with worsening leukopenia likely from sepsis underlying pancytopenia most likely related to chemotherapy/lymphoma, recent workup during hospitalization in early September noted. # History of lymphoma status post chemotherapy apparently in remission # Acute kidney injury creatinine 2.1 baseline around 1, likely consistent with ATN in setting of sepsis and end organ dysfunction: granular casts on UA, improving # Metabolic acidosis likely from above # Atrial fibrillation with rapid ventricular rate: appreciate cardiology, initiated on sotalol then transitioned to metoprolol. 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 Continue PO iron. # GERD # Subdural hematoma after a fall 10/25 along with Acute T11 vertebral facture: Discussed case with [facility]surgery at [facility]. Plan for transfer, awaiting bed. Continue neuro-checks. His mental status and neuralgic status has been stable and unchanged from yesterday. He is not on anticoagulants (was on prophylactic SubQ enoxaparin 30 mg dose 10/24 AM). Transfused one unit of platelets per request of neurosurgery at [facility] on 10/25 plts 60 --> 99. I did call and discuss the events with daughter Ina and she is in agreement with the transfer plan. Repeat CT 10/26 shows decreased size of SDH. # DVT prophylaxis: SCDs given low Hgb and platelets with increased bleeding risk # Code status: Full code, discussed on admission Daughter updated 10/26 Subjective Date/time seen: 10/26/20 12:03 No major changes overnight. He looks comfortable. He reports feeling overall better. Hemodynamically stable. Afebrile. Heart rate has been mostly 50s-60s. Blood pressure 120s-130s. Review of Systems Review of Systems: All systems reviewed & are unremarkable except as noted in HPI and below Exam Narrative: Gen: Alert, NAD, oriented to self and place Abd: Soft, NT, ND Heart: RRR Lungs: CTAB Ext:No lower extremity edema Objective Data Vital Signs Vital Signs: Vital Signs - 24 hr 10/25/20 12:34 10/25/20 12:49 10/25/20 13:45 Temperature 97.7 F 97.8 F 97.8 F Pulse Rate 63 60 57 L Respiratory Rate 16 16 12 Blood Pressure 133/75 134/73 118/71 Pulse Oximetry 93 94 100 10/25/20 14:00 10/25/20 14:05 10/25/20 14:35 T
--- NOTE | 2020-10-26 15:19 | PM.PNCARD ---
Progress Note: A&P Assessment and Plan (1) Paroxysmal atrial fibrillation: Code(s): I48.0 - Paroxysmal atrial fibrillation Status: Acute Assessment and Plan: Sotalol discontinued due to QT prolongation greater than 500 milliseconds. Continue metoprolol 25 mg b.i.d.. Maintaining sinus rhythm thus far. Systemic A/C held due to fall and subdural hematoma. Overall prognosis poor. Patient is at significantly elevated stroke risk with recurrent atrial fibrillation off systemic anticoagulation. (2) Encounter for monitoring sotalol therapy: Code(s): Z51.81 - Encounter for therapeutic drug level monitoring; Z79.899 - Other vermin exterminator (current) drug therapy Status: Acute Assessment and Plan: Discontinued secondary to QT prolongation concerns. (3) SDH (subdural hematoma): Code(s): S06.5X9A - Traumatic subdural hemorrhage with loss of consciousness of unspecified duration, initial encounter Status: Acute Assessment and Plan: Traumatic status post fall. Awaiting transfer to [facility]. Anticoagulation held. (4) Pancytopenia: Code(s): D61.818 - Other pancytopenia Status: Acute Assessment and Plan: Per primary service and Oncology. (5) Lymphoma: Code(s): C85.90 - Non-Hodgkin lymphoma, unspecified, unspecified site Status: Acute Assessment and Plan: On chemotherapy. Oncology following. (6) Severe sepsis: Code(s): A41.9 - Sepsis, unspecified organism; R65.20 - Severe sepsis without septic shock Status: Acute Assessment and Plan: Remains on broad-spectrum antibiotics. Management per primary service. Subjective Date/time seen: Date of service: 10/26/20 15:19 Follow-up for atrial fibrillation Patient remains confused. Denies pain or shortness of breath. Not answering other questions reliably. No new issues overnight. Maintaining sinus rhythm. Sotalol discontinued yesterday due to QT prolongation concerns. Review of Systems Review of Systems: All systems reviewed & are unremarkable except as noted in HPI and below ROS unobtainable: Yes unobtainable due to mental status Constitutional: Constitutional: Reports as per HPI Eyes: Eyes: Reports as per HPI and Reports no additional eye complaints ENT: Reports system reviewed and no additional complaints, except as documented and Reports as per HPI Cardiovascular: Cardiovascular: Reports as per HPI, Reports no additional cardiovascular complaints and Reports dyspnea on exertion Respiratory: Respiratory: Reports as per HPI and Reports dyspnea on exertion Gastrointestinal: Gastrointestinal: Reports as per HPI and Reports no additional gastrointestinal complaints Genitourinary: Genitourinary: Reports as per HPI Musculoskeletal: Musculoskeletal: Reports no additional musculoskeletal complaints and Reports as per HPI Integumentary/Breasts: Skin/Breast: Reports system reviewed and no additional complaints, except as docu and Reports as per HPI Neurologic: Reports system reviewed and no additional complaints, except as documented, Reports as per HPI, Reports confusion and Reports weakness Psychiatric: Psychiatric: Reports no additional psychiatric complaints, Reports as per HPI and Reports confusion Endocrine: Endocrine: Reports no additional endocrine complaints and Reports fatigue Hematologic/Lymphatic: Hematologic/Lymphatic: Reports as per HPI Allergic/Immunologic: Allergic/Immunologic: Reports no additional allergic/immunologic complaints and Reports as per HPI Exam Const: General: no acute distress and confusion Orientation/consciousness: confusion Other: Thin, chronically ill-appearing WM confused, sleeping arousable no distress, awake A&Ox1 lying in bed comfortable HENMT: Mouth: Yes moist mucous membranes Eyes: Sclera: sclerae normal Pupils: Equal, round and reactive pupils present Neck: Neck: supple and no JVD Thyroid: thyroid norm
--- NOTE | 2020-10-26 18:32 | PDONCCN ---
HPI - Date of Consult Date/Time: 10/26/20 18:32 Requesting Physician: Sherri Vazquez MD Primary Care Provider: ALEXANDRU,ISIDRO Pulido M.D. - Consult Narrative Reason for consult: Pancytopenia Narrative: Jonny Ivan is a 75 year old male with history of non-Hodgkin lymphoma completed chemotherapy in June and 2020. She he was treated by Dr. Arango at [facility]. Patient is a poor historian. He was recently discharged from the hospital on October 12, 2020. Patient now came into the hospital with generalized weakness along with mental status changes and confusion. He also fell prior to the admission. Patient was found to be tachycardic on arrival to the ER. Patient recently to see if COVID booster shot about a week ago prior to the admission. Labs showed WBC count of 1.8 and hemoglobin [place] 8[place] [address]. He denies any bleeding. He has been eating poorly. Head CT showed age-related changes with subdural hematoma with decrease in size. Chest CT showed bilateral pleural effusion with compressive atelectasis of the lower lobe. Patient was diagnosed with sepsis and started on vancomycin and Primaxin. He denies any fevers and chills at this time. Review of Systems - Review of Systems All systems reviewed & are unremarkable except as noted in HPI and bel - Neurologic Reports system reviewed and no additional complaints, except as documented, Reports confusion, Reports weakness, Denies abnormal speech, Denies abnormal gait, Denies headache(s), Denies focal weakness, Denies loss of vision, Denies numbness, Denies other visual disturbances, Denies sensory deficit [facility] Medical History: Medical History (Last Reviewed 10/23/20 @ 18:07 by Mino Kang MD) Anemia CHI (closed head injury) Diarrhea Esophagitis Failure to thrive Lymphoma Seizures Surgical History: Surgical History (Last Reviewed 10/23/20 @ 18:07 by Mino Kang MD) H/O prostatectomy History of appendectomy History of hernia surgery Family History: Family History (Last Reviewed 10/23/20 @ 22:15 by Cindy Heredia RN) Mother Breast cancer Father Lymphoma - Social History Social History: Social History (Last Reviewed 10/23/20 @ 18:07 by Mino Kang MD) Gender Identity: Gender identity (if verbalized by the patient): Male Alcohol Use: Alcohol intake: never Drinks per week: 1 Substance Use: Substance use: never Others: Spiritual care concerns: No Smoking Status: Smoking status: Never smoker Second hand tobacco smoke exposure: Yes Meds Home Medications Medication Instructions Recorded Confirmed Type fluticasone propionate 50 mcg INTRANASAL DAILY 10/06/20 10/23/20 History latanoprost 1 drp EACH EYE HS 10/06/20 10/23/20 History topiramate See Rx Instructions .ROUTE .COMPLEX 10/06/20 10/23/20 History valacyclovir 500 mg PO BID 10/06/20 10/23/20 History ferrous sulfate 325 mg PO DAILY #30 tablet 10/12/20 10/23/20 Rx mirtazapine [Remeron] 7.5 mg PO HS #15 tablet 10/12/20 10/23/20 Rx pantoprazole 40 mg PO QAM #30 tablet 10/12/20 10/23/20 Rx Allergies Allergy/AdvReac Type Severity Reaction Status Date / Time tomato Allergy Unknown Unknown Verified 10/23/20 22:14 aprepitant Allergy Rash Verified 10/24/20 03:08 ONION Allergy Mild Unknown Uncoded 10/23/20 22:14 Results - Labs CBC & Chem 7: 10/26/20 04:58 10/26/20 04:58 Labs: Short CBC 10/26/20 Range/Units 04:58 WBC 1.1 L* (4.5-10.0) K/mm3 Hgb 9.4 L (14.0-18.0) g/dL Hct 29.4 L (42.0-52.0) % Plt Count 102 L (150-375) k/mm3 [facility] 10/26/20 04:58 Sodium 134 L Potassium 3.7 Chloride 106 Carbon Dioxide 21 L BUN 22 H D Creatinine 1.10 Glucose 96 Calcium 8.3 L Assessment and Plan - Additional Plan Pancytopenia. Patient is a 75-year-old male with history of non-Hodgkin lymphoma status post chemotherapy compl
[2020-10-26 19:29] LABS: Iron 24 ug/dL (49-181); Lactate Dehydrogenase 601 U/L (313-618)
[2020-10-26 19:38] LABS: Percent Iron Saturation 14 % (20-50)
[2020-10-26 20:46] LABS: Vitamin B12 > 1000.0 pg/mL (239-931)
[2020-10-26] MEDS: LATANOPROST 0.005% OP SOLN 2.5 ML BTL 1 DROP EACH EYE (21:08)
[2020-10-26] MEDS: LACTATED RINGERS 1,000 ML 75 ML IV CONT (21:09)
[2020-10-27] VITALS (14 sets, daily range): BP systolic 103–142; BP diastolic 76–86; PULSE 61–100; RESP 12–20; TEMP 36.4–37.3; O2SAT 92–100
[2020-10-27] MEDS: BENZOCAINE/MENTHOL (*BKC) 18 EA LOZENGE 1 LOZENGE PO (06:46)
[2020-10-27 08:24] LABS: Basophils Percent Auto 0.5 % (0.2-1.2); Hematocrit 34.1 % (42.0-52.0); Hemoglobin 10.9 g/dL (14.0-18.0); Lymphocytes Absolute Auto 0.27 K/mm3 (0.9-3.2); Lymphocytes Percent Auto 14.8 % (18.3-44.2); Mean Corpuscular Hemoglobin 31.1 pg (26-34); Mean Corpuscular Volume 97.4 fl (80-100); Mean Platelet Volume 12.1 fl (7.4-10.4); Monocytes Absolute Auto 1.5 K/mm3 (0.1-0.6); Monocytes Percent Auto 82.5 % (2.6-8.5); Neutrophils Percent Auto 2.2 % (45.5-73.1); Platelet Count Result 94 k/mm3 (150-375); Red Cell Distribution Width 17.7 % (11.5-14.5)
[2020-10-27 08:36] LABS: Anion Gap 5 mmol/L (8-16); Blood Urea Nitrogen 19 mg/dL (9-20); Carbon Dioxide 20 mmol/L (22-30); Chloride 108 mmol/L (98-107); Estimated CRCL calculation 56 ml/min; Estimated Glomerular Filt Rate > 60; Glucose 102 mg/dL (65-110); Potassium 3.3 mmol/L (3.4-5.0); Sodium 133 mmol/L (137-145)
[2020-10-27 08:42] LABS: Vancomycin Trough 6.8 ug/mL (10.0-20.0)
[2020-10-27 09:06] LABS: White Blood Count 1.8 K/mm3 (4.5-10.0)
[2020-10-27 09:12] LABS: Anisocytosis 1+ (NORMAL); Platelet Estimate Decreased (Adequate); Poikilocytosis 1+ (NORMAL)
--- NOTE | 2020-10-27 09:12 | PM.IMPN ---
Progress Note: A&P Assessment and Plan (1) Severe sepsis: Code(s): A41.9 - Sepsis, unspecified organism; R65.20 - Severe sepsis without septic shock Status: Acute (2) Pancytopenia: Code(s): D61.818 - Other pancytopenia Status: Acute (3) Pneumonia: Qualifiers: Laterality: left Lung location: unspecified part of lung Pneumonia type: due to unspecified organism Qualified Code(s): J18.9 - Pneumonia, unspecified organism Code(s): J18.9 - Pneumonia, unspecified organism Status: Acute (4) Lymphoma: Code(s): C85.90 - Non-Hodgkin lymphoma, unspecified, unspecified site Status: Acute (5) Seizure disorder: Code(s): G40.909 - Epilepsy, unspecified, not intractable, without status epilepticus Status: Acute (6) Generalized weakness: Code(s): R53.1 - Weakness Status: Acute (7) Acute kidney injury: Code(s): N17.9 - Acute kidney failure, unspecified Status: Acute Additional Plan # Sepsis due to pulmonary source with evidence of pneumonia and hypoxia, elevated creatinine at 2.1 on presentation. - Mild hypotension which rapidly improved with IV had resuscitation with fever hypotension leukopenia and tachycardia # Left lower lobe pneumonia - Initially on vancomycin and imipenem given his low WBC/immune suppressed status. - Blood cultures NTD. - De-escalate Abx to single agent Levofloxacin today. Plan for 10 day total Abx course (last day 11/01). # Lactic acidosis - Resolved with IV resuscitation # Pancytopenia with worsening leukopenia likely from sepsis - Underlying pancytopenia most likely related to chemotherapy/lymphoma, recent workup during hospitalization in early September noted. Appreciate help and recommendation from Oncology. Initiated on Neupogen 10/27. WBC now improving. # History of lymphoma - Status post chemotherapy apparently in remission # Acute kidney injury Admission creatinine 2.1, baseline around 1, likely consistent with ATN in setting of sepsis and end organ dysfunction: granular casts on UA, creatinine now improved to baseline # Atrial fibrillation with rapid ventricular rate - Appreciate cardiology, initiated on sotalol then transitioned to metoprolol. 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 Will give a dose of IV iron and continue PO iron retirement. # GERD - Continue home pantoprazole # Subdural hematoma after a fall 10/25 during his hospitalization when he got up on his own along with Acute T11 vertebral facture: Discussed case with [facility]surgery at [facility]. Plan for transfer, awaiting bed. Continue neuro-checks. His mental status and neuralgic status has been stable and unchanged from prior. He is not on anticoagulants (was on prophylactic SubQ enoxaparin 30 mg dose 10/24 AM). Transfused one unit of platelets per request of neurosurgery at [facility] on 10/25 plts 60 --> 99. I did call and discuss the events with daughter Ina and have updated her daily, she is in agreement with the transfer plan. Repeat CT 10/26 shows decreased size of SDH. # DVT prophylaxis - SCDs given low Hgb and platelets with increased bleeding risk # Code status - Full code, discussed on admission Subjective Date/time seen: 10/27/20 09:12 No major issues overnight. Hemodynamically stable. Afebrile. Still with intermittent confusion although he looks more alert today. Denies any complaints. No abdominal pain, nausea, or vomiting. Breathing is much better he is on room air. Review of Systems Review of Systems: All systems reviewed & are unremarkable except as noted in HPI and below Exam Narrative: Gen: Alert, NAD, oriented to self only Abd: Soft, NT, ND Heart: RRR Lungs: CTAB
[2020-10-27 09:13] LABS: Ovalocytes 2+ (NORMAL); Tear Drop Cells 1+ (NORMAL)
[2020-10-27] MEDS: FILGRASTIM-SNDZ 480 MCG/0.8 ML SYRINGE SUB-Q (09:15)
[2020-10-27] MEDS: valACYclovir HCL 500 MG TABLET PO ×2 (09:16→15:44)
[2020-10-27] MEDS: TOPIRAMATE 100 MG TABLET BY MOUTH ×2 (09:16→21:02)
[2020-10-27] MEDS: TOPIRAMATE 25 MG TABLET 50 MG BY MOUTH ×2 (09:16→21:02)
[2020-10-27] MEDS: PANTOPRAZOLE 40 MG TABLET PO (09:16)
[2020-10-27] MEDS: FLUTICASONE PROPIONATE 0.05% NA SPR 16 GM BTL (*BKC) 1 SPRAY NASAL (09:16)
[2020-10-27] MEDS: FERROUS SULFATE 324 MG TABLET PO (09:17)
[2020-10-27] MEDS: METOPROLOL TARTRATE 25 MG TABLET PO ×2 (09:17→21:02)
--- NOTE | 2020-10-27 10:35 | ECG_ITS ---
Measurements Intervals [place] Rate: 68 P: 20 [place]: 139 QRS: -43 QRSD: 126 T: 14 QT: 466 QTc: 497 Interpretive Statements SINUS RHYTHM LEFT AXIS DEVIATION RIGHT BUNDLE BRANCH BLOCK ABNORMAL ECG Electronically Signed On 10-27-2020 11:17:46 CDT by Fernando Ruiz D.O.
[2020-10-27 11:03] LABS: Magnesium 1.7 mg/dL (1.6-2.3)
[2020-10-27] MEDS: POTASSIUM CHLORIDE 20 MEQ TABLET 40 MEQ PO (11:38)
[2020-10-27 12:31] LABS: Iron 23 ug/dL (49-181)
[2020-10-27 12:42] LABS: Percent Iron Saturation 14 % (20-50)
--- NOTE | 2020-10-27 13:34 | PM.PNCARD ---
Progress Note: A&P Assessment and Plan (1) Ventricular tachycardia: Code(s): I47.2 - Ventricular tachycardia Status: Acute Assessment and Plan: Rather concerning >20 second run of wide complex tachycardia concerning for monomorphic VT, asymptomatic, hemodynamically stable Less likely aberrantly conducted SVT by appearance on telemetry. Potassium slightly low 3.3. Give 40 mEq potassium chloride x1 now. Check magnesium level. If less than 2 give 1 g magnesium sulfate. Cont Metoprolol. Repeat 12 lead EKG to assess QTc. Monomorphic VT less likely consequence of QT prolongation on sotalol which has been discontinued now 2 days. However, will assess. Avoid overly excessive bradycardia. If recurrent sustained VT initiate amiodarone and hold beta-christiano. EF 50% by echocardiogram and 10/26/20, technically difficult study RVSP 38 mm Hg moderate AI/MR, mild TR. Monitor electrolytes very closely. Keep potassium around 4, magnesium around 2. Recheck potassium this afternoon. Continue telemetry. (2) Paroxysmal atrial fibrillation: Code(s): I48.0 - Paroxysmal atrial fibrillation Status: Acute Assessment and Plan: Sotalol discontinued 10/25/20 due to QT prolongation greater than 500 milliseconds. Continue metoprolol 25 mg b.i.d.. Maintaining sinus rhythm thus far. Systemic A/C held due to fall and subdural hematoma. Overall prognosis poor. Patient is at significantly elevated stroke risk with recurrent atrial fibrillation off systemic anticoagulation. (3) SDH (subdural hematoma): Code(s): S06.5X9A - Traumatic subdural hemorrhage with loss of consciousness of unspecified duration, initial encounter Status: Acute Assessment and Plan: Traumatic status post fall. Awaiting transfer to [facility]. Anticoagulation held. (4) Pancytopenia: Code(s): D61.818 - Other pancytopenia Status: Acute Assessment and Plan: Per primary service and Oncology. (5) Lymphoma: Code(s): C85.90 - Non-Hodgkin lymphoma, unspecified, unspecified site Status: Acute Assessment and Plan: On chemotherapy. Oncology following. (6) Severe sepsis: Code(s): A41.9 - Sepsis, unspecified organism; R65.20 - Severe sepsis without septic shock Status: Acute Assessment and Plan: Remains on broad-spectrum antibiotics. Management per primary service. Additional Plan This 75-year-old man with paroxysmal atrial fibrillation/atrial flutter. He is primarily ill with results of his lymphoma chemotherapy he is anemic neutropenic thrombocytopenic as well. He felt by x-ray to have some left lower lobe pneumonia as well. He appears to be going in and out of AF alternating with sinus rhythm. I am going to start some sotalol treatment to try to stabilize this and maintain sinus rhythm. Given his anemia and thrombocytopenia I am not going to start anticoagulation at this time the school that would seem to be higher than the benefit. Will obtain an echocardiogram tomorrow and follow him along with you thank you for asking me to see this very nice but unfortunate man Isidro Schultz MD [facility] Subjective Date/time seen: Date of service: 10/27/20 13:34 Follow-up for atrial fibrillation, QT prolongation Still noted to be confused at times, denies chest pain, shortness of breath or palpitations. Denies pain. On telemetry patient had over 20 seconds of wide complex tachycardia concerning for ventricular tachycardia. Asymptomatic. Review of Systems Review of Systems: All systems reviewed & are unremarkable except as noted in HPI and below ROS unobtainable: Yes unobtainable due to mental status Constitutional: Constitutional: Reports as per HPI, Reports fatigue and Reports weakness Eyes: Eyes: Reports as per HPI and Reports no additional eye complaints ENT: Reports system reviewed and no additional complaints, except as documented and Reports as per HP
[2020-10-27] MEDS: LACTATED RINGERS 1,000 ML 75 ML IV CONT (13:39)
[2020-10-27] MEDS: MAGNESIUM SULF 1 GM/D5W 100 ML 1 GM/100 ML BAG IVPB (15:44)
[2020-10-27 16:32] LABS: Potassium 3.7 mmol/L (3.4-5.0)
[2020-10-27] MEDS: IRON SUCROSE COMPLEX 100 MG/5 ML VIAL 200 MG IV PUSH (17:22)
[2020-10-27] MEDS: LATANOPROST 0.005% OP SOLN 2.5 ML BTL 1 DROP EACH EYE (21:03)
[2020-10-28] VITALS (15 sets, daily range): BP systolic 122–141; BP diastolic 74–91; PULSE 66–79; RESP 16–24; TEMP 36.3–36.6; O2SAT 94–98
[2020-10-28 00:52] LABS: Pneumococcal Antigen Urine Not Detected (Not Detected)
[2020-10-28] MEDS: LACTATED RINGERS 1,000 ML 75 ML IV CONT ×2 (03:49→20:28)
[2020-10-28 05:26] LABS: Hematocrit 33.4 % (42.0-52.0); Hemoglobin 10.5 g/dL (14.0-18.0); Immature Granulocyte Absolute 0.01 K/mm3 (0.00-0.031); Immature Granulocyte Percent A 0.2 % (0-0.5); Lymphocytes Absolute Auto 0.34 K/mm3 (0.9-3.2); Lymphocytes Percent Auto 8.5 % (18.3-44.2); Mean Corpuscular HGB Conc 31.4 g/dl (32-36); Mean Corpuscular Hemoglobin 31.1 pg (26-34); Mean Corpuscular Volume 98.8 fl (80-100); Mean Platelet Volume 12.9 fl (7.4-10.4); Monocytes Absolute Auto 3.2 K/mm3 (0.1-0.6); Monocytes Percent Auto 78.9 % (2.6-8.5); Neutrophils Absolute Auto 0.5 K/mm3 (1.3-6.7); Neutrophils Percent Auto 12.4 % (45.5-73.1); Platelet Count Result 87 k/mm3 (150-375); Red Blood Count 3.38 M/mm3 (4.6-6.20); Red Cell Distribution Width 17.8 % (11.5-14.5)
[2020-10-28 05:41] LABS: Anion Gap 11 mmol/L (8-16); Blood Urea Nitrogen 17 mg/dL (9-20); Calcium 8.1 mg/dL (8.4-10.2); Carbon Dioxide 20 mmol/L (22-30); Chloride 105 mmol/L (98-107); Estimated CRCL calculation 57 ml/min; Estimated Glomerular Filt Rate > 60; Glucose 96 mg/dL (65-110); Potassium 3.8 mmol/L (3.4-5.0); Sodium 136 mmol/L (137-145)
[2020-10-28 07:50] LABS: Legionella pneumophila Ag Ur Not Detected (Not Detected)
--- NOTE | 2020-10-28 09:42 | ECG_ITS ---
Measurements Intervals [place] Rate: 74 P: [place]: 0 QRS: -34 QRSD: 124 T: 24 QT: 456 QTc: 508 Interpretive Statements SINUS RHYTHM ATRIAL AND VENTRICULAR PREMATURE COMPLEXES LEFT AXIS DEVIATION RIGHT BUNDLE BRANCH BLOCK ABNORMAL ECG Electronically Signed On 10-28-2020 10:22:23 CDT by Fernando Ruiz D.O.
[2020-10-28] MEDS: PANTOPRAZOLE 40 MG TABLET PO (10:22)
[2020-10-28] MEDS: TOPIRAMATE 25 MG TABLET 50 MG BY MOUTH ×2 (10:22→20:27)
[2020-10-28] MEDS: FERROUS SULFATE 324 MG TABLET PO (10:22)
[2020-10-28] MEDS: METOPROLOL TARTRATE 25 MG TABLET PO ×2 (10:23→20:27)
[2020-10-28] MEDS: valACYclovir HCL 500 MG TABLET PO ×2 (10:23→16:54)
[2020-10-28] MEDS: FLUTICASONE PROPIONATE 0.05% NA SPR 16 GM BTL (*BKC) 1 SPRAY NASAL (10:23)
[2020-10-28] MEDS: TOPIRAMATE 100 MG TABLET BY MOUTH ×2 (10:23→20:27)
[2020-10-28] MEDS: FILGRASTIM-SNDZ 480 MCG/0.8 ML SYRINGE SUB-Q (10:26)
--- NOTE | 2020-10-28 10:43 | PM.PNCARD ---
Progress Note: A&P Assessment and Plan (1) Ventricular tachycardia: Code(s): I47.2 - Ventricular tachycardia Status: Acute Assessment and Plan: Rather concerning >20 second run of wide complex tachycardia concerning for monomorphic VT, asymptomatic 10/27/20 without recurrence. Repeat 12 lead EKG to assess QTc. Avoid overly excessive bradycardia, follow QTc, hold off on aggressive up titration of BB for now. If recurrent sustained VT initiate amiodarone and hold beta-christiano as tolerted. Will continue to monitor for now. -Monitor electrolytes very closely. Keep potassium around 4, magnesium around 2. EF 50% by echocardiogram and 10/26/20, technically difficult study RVSP 38 mm Hg moderate AI/MR, mild TR. Continue telemetry. (2) Paroxysmal atrial fibrillation: Code(s): I48.0 - Paroxysmal atrial fibrillation Status: Acute Assessment and Plan: Sotalol discontinued 10/25/20 due to QT prolongation greater than 500 milliseconds. Continue metoprolol 25 mg b.i.d.. Maintaining sinus rhythm thus far. Systemic A/C on hold due to fall and subdural hematoma. Overall prognosis guarded. Patient is at significantly elevated stroke risk with recurrent atrial fibrillation off systemic anticoagulation. (3) SDH (subdural hematoma): Code(s): S06.5X9A - Traumatic subdural hemorrhage with loss of consciousness of unspecified duration, initial encounter Status: Acute Assessment and Plan: Traumatic status post fall. Awaiting transfer to [facility]. Anticoagulation held. More alert today which is encouraging. (4) Pancytopenia: Code(s): D61.818 - Other pancytopenia Status: Acute Assessment and Plan: Per primary service and Oncology. (5) Lymphoma: Code(s): C85.90 - Non-Hodgkin lymphoma, unspecified, unspecified site Status: Acute Assessment and Plan: On chemotherapy. Oncology following. (6) Severe sepsis: Code(s): A41.9 - Sepsis, unspecified organism; R65.20 - Severe sepsis without septic shock Status: Acute Assessment and Plan: Remains on broad-spectrum antibiotics. Management per primary service. Subjective Date/time seen: Date of service: 10/28/20 10:43 Follow-up for atrial fibrillation, ventricular tachycardia Patient much more alert this morning. Eating better. Denies pain, shortness of breath or palpitations. Maintaining sinus rhythm on telemetry. No sustained ventricular tachycardia on telemetry overnight. He is aware transfer to [facility] is pending. He asks if some has spoken with his oncologist at [facility]. He inquired about contact with his daughter stating the number that was on record is incorrect yet he does not know the correct number. States he has not spoken with his daughter who is staying at his house currently. Review of Systems Review of Systems: All systems reviewed & are unremarkable except as noted in HPI and below Constitutional: Constitutional: Reports as per HPI, Reports fatigue and Reports weakness Eyes: Eyes: Reports as per HPI and Reports no additional eye complaints ENT: Reports system reviewed and no additional complaints, except as documented and Reports as per HPI Cardiovascular: Cardiovascular: Reports as per HPI, Reports no additional cardiovascular complaints, Denies chest pain, Denies palpitations and Reports dyspnea on exertion Respiratory: Respiratory: Reports as per HPI and Denies dyspnea Gastrointestinal: Gastrointestinal: Reports as per HPI, Reports no additional gastrointestinal complaints and Denies abdominal pain Genitourinary: Genitourinary: Reports as per HPI Musculoskeletal: Musculoskeletal: Reports no additional musculoskeletal complaints and Reports as per HPI Integumentary/Breasts: Skin/Breast: Reports system reviewed and no additional complaints, except as docu and Reports as per HPI Neurologic:
--- NOTE | 2020-10-28 19:44 | PM.IMPN ---
Progress Note: A&P Additional Plan Assessment and Plan (1) Severe sepsis: Code(s): A41.9 - Sepsis, unspecified organism; R65.20 - Severe sepsis without septic shock Status: Acute (2) Pancytopenia: Code(s): D61.818 - Other pancytopenia Status: Acute (3) Pneumonia: Qualifiers: Laterality: left Lung location: unspecified part of lung Pneumonia type: due to unspecified organism Qualified Code(s): J18.9 - Pneumonia, unspecified organism Code(s): J18.9 - Pneumonia, unspecified organism Status: Acute (4) Lymphoma: Code(s): C85.90 - Non-Hodgkin lymphoma, unspecified, unspecified site Status: Acute (5) Seizure disorder: Code(s): G40.909 - Epilepsy, unspecified, not intractable, without status epilepticus Status: Acute (6) Generalized weakness: Code(s): R53.1 - Weakness Status: Acute (7) Acute kidney injury: Code(s): N17.9 - Acute kidney failure, unspecified Status: Acute Additional Plan # Sepsis due to pulmonary source with evidence of pneumonia and hypoxia, elevated creatinine at 2.1 on presentation. - Mild hypotension which rapidly improved with IV had resuscitation with fever hypotension leukopenia and tachycardia # Left lower lobe pneumonia - Initially on vancomycin and imipenem given his low WBC/immune suppressed status. - Blood cultures NTD. - De-escalate Abx to single agent Levofloxacin on 10/27/2020. Plan for 10 day total Abx course (last day 11/01). # Lactic acidosis - Resolved with IV resuscitation # Pancytopenia with worsening leukopenia likely from sepsis - Underlying pancytopenia most likely related to chemotherapy/lymphoma, recent workup during hospitalization in early September noted. Appreciate help and recommendation from Oncology. Initiated on Neupogen 10/27. WBC now improving. # History of lymphoma - Status post chemotherapy apparently in remission # Acute kidney injury Admission creatinine 2.1, baseline around 1, likely consistent with ATN in setting of sepsis and end organ dysfunction: granular casts on UA, creatinine now improved to baseline. Avoid nephrotoxic medications. # Atrial fibrillation with rapid ventricular rate - [facility] cardiology stop sotalol then transitioned to metoprolol 25 mg PO BID/ -Due to subdural hematoma anticoagulation is contraindicated. 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 Will give a dose of IV iron and continue PO iron jail. # GERD - Continue home pantoprazole # Subdural hematoma after a fall 10/25 during his hospitalization when he got up on his own along with Acute T11 vertebral facture: Discuss[facility] Plan for transfer, awaiting bed. Continue neuro-checks. His mental status and neuralgic status has been stable and unchanged from prior. He is not on anticoagulants (was on prophylactic SubQ enoxaparin 30 mg dose 10/24 AM). Transfused one unit of platelets per request of neurosurgery at [facility] on 10/25 plts 60 --> 99. I did call and discuss the events with daughter Ina and have updated her daily, she is in agreement with the transfer plan. Repeat CT 10/26 shows decreased size of SDH. # DVT prophylaxis - SCDs given low Hgb and platelets with increased bleeding risk # Code status - Full code, per HPI. Time Spent With Patient Time with patient: 15 - 25 minutes Subjective Date/time seen: 10/28/20 19:44 Patient awake, alert, oriented to self. NO distress. Review of Systems Review of Systems: Cannot be obtained. Exam Narrative: Gen: Alert, NAD, oriented to self only Abd: Soft, NT, ND Heart: RRR Lungs: CTAB Ext:No lower extremity edema Objective Data Vital Signs Vital Signs: Vital Signs - 24 hr /0
[2020-10-28] MEDS: LATANOPROST 0.005% OP SOLN 2.5 ML BTL 1 DROP EACH EYE (20:27)
[2020-10-29] VITALS (12 sets, daily range): BP systolic 124–149; BP diastolic 72–88; PULSE 66–83; RESP 18–20; TEMP 36.1–36.4; O2SAT 96–100; BMI 24.1
[2020-10-29] MEDS: FILGRASTIM-SNDZ 480 MCG/0.8 ML SYRINGE SUB-Q (08:13)
[2020-10-29] MEDS: valACYclovir HCL 500 MG TABLET PO ×2 (08:13→17:52)
[2020-10-29] MEDS: TOPIRAMATE 25 MG TABLET 50 MG BY MOUTH ×2 (08:14→19:48)
[2020-10-29] MEDS: FERROUS SULFATE 324 MG TABLET PO (08:14)
[2020-10-29] MEDS: TOPIRAMATE 100 MG TABLET BY MOUTH ×2 (08:14→19:47)
[2020-10-29] MEDS: FLUTICASONE PROPIONATE 0.05% NA SPR 16 GM BTL (*BKC) 1 SPRAY NASAL (08:14)
[2020-10-29] MEDS: METOPROLOL TARTRATE 25 MG TABLET PO ×2 (08:14→19:47)
[2020-10-29] MEDS: PANTOPRAZOLE 40 MG TABLET PO (08:14)
--- NOTE | 2020-10-29 12:07 | WPDNEURCNPN ---
Assessment and Plan Additional Plan Considering all the complications and underlying diagnosis is a small left parafalcine subdural hematoma posteriorly noted on the CT scan with only 5mm thickness on the present scan I will simply observe on a follow-up CT scan in about 4 weeks if any further question arises please do not hesitate to contact Consult date: 10/29/20 Time Seen: 12:00 HPI: Jonny Ivan is a 75 year old male admitted to the hospital on 23 of October with complaints of change in the mental status subsequent to a fall and febrile status, patient has recently received the COVID booster shot a week before the admission, has finished the chemotherapy for his lymphoma in June of 2019, he was noted to be in AFib in the emergency room, along with hypotension, during hospitalization has been noted to have prolonged QT and has been treated by pourer metal who had started metoprolol 25 twice a day , to receive the treatment for sepsis, as mentioned before for non-Hodgkin's lymphoma, neuro pain that has been obtained because of the ongoing diagnosis of epilepsy without status epilepticus, most recent lab reveals him to have WBC 4000 platelet count only 87 and hemoglobin 10.[address] scan on October 26, 2020 documented a small left parafalcine subdural hematoma posteriorly which is slightly decreased in size with a maximum thickness of only 5mm previously noted late was 7mm and also old stroke in the left frontal parietal lobe with no intraparenchymal bleed there is moderate prominence of the ventricles again related to cerebral atroph, most recent x-ray of the chest documents small right pleural effusion as well as left-sided pleural effusion Review of Systems Review of Systems: All systems reviewed & are unremarkable except as noted in HPI and below PMFSH Past Medical History Medical History Anemia CHI (closed head injury) Diarrhea Esophagitis Failure to thrive Lymphoma Seizures Surgical History Surgical History H/O prostatectomy History of appendectomy History of hernia surgery Family History Family History Mother Breast cancer Father Lymphoma Social History Social History Social History: Patient would like to be a full code and would like his son and daughter Kirill and Denise as his surrogate decision maker if needed. He has never smoked cigarettes. He drinks about 1-2 drinks socially a week if he goes out with his friends. 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 No drugs Smoking status: Never smoker Second hand tobacco smoke exposure: Yes Alcohol intake: never Drinks per week: 1 Substance use: never Gender identity (if verbalized by the patient): Male Spiritual care concerns: No Meds Home Medications and Allergies Home Medications Medication Instructions Recorded Confirmed Type fluticasone propionate 50 mcg INTRANASAL DAILY 10/06/20 10/23/20 History latanoprost 1 drp EACH EYE HS 10/06/20 10/23/20 History topiramate See Rx Instructions .ROUTE .COMPLEX 10/06/20 10/23/20 History valacyclovir 500 mg PO BID 10/06/20 10/23/20 History ferrous sulfate 325 mg PO DAILY #30 tablet 10/12/20 10/23/20 Rx mirtazapine [Remeron] 7.5 mg PO HS #15 tablet 10/12/20 10/23/20 Rx pantoprazole 40 mg PO QAM #30 tablet 10/12/20 10/23/20 Rx Allergies Allergy/AdvReac Type Severity Reaction Status Date / Time tomato Allergy Unknown Unknown Verified 10/23/20 22:14 aprepitant Allergy Rash Verified 10/24/20 03:08 ONION Allergy Mild Unknown Uncoded 10/23/20 22:14 Vital Signs Vital Signs - 24 hr 10/28/20 14:00 10/28/20 16:00 10/28/20 18:00 Temperature 36.5 C Pulse Rate 73 66 76 Respiratory Rate 20 Blood Pressure 122/74 Pulse Oximetry 95 10/28/20 20:00 10/28/20 20:27 10/28/20 21:51 Temperature
--- NOTE | 2020-10-29 14:31 | PM.PNCARD ---
Progress Note: A&P Assessment and Plan (1) Ventricular tachycardia: Code(s): I47.2 - Ventricular tachycardia Status: Acute Assessment and Plan: Rather concerning >20 second run of wide complex tachycardia concerning for monomorphic VT, asymptomatic 10/27/20 without recurrence. Repeat 12 lead EKG to assess QTc. Avoid overly excessive bradycardia, follow QTc, hold off on aggressive up titration of BB for now. If recurrent sustained VT initiate amiodarone and hold beta-christiano as tolerted. Will continue to monitor for now. -Monitor electrolytes very closely. Keep potassium around 4, magnesium around 2. EF 50% by echocardiogram and 10/26/20, technically difficult study RVSP 38 mm Hg moderate AI/MR, mild TR. Continue telemetry. (2) Paroxysmal atrial fibrillation: Code(s): I48.0 - Paroxysmal atrial fibrillation Status: Acute Assessment and Plan: Sotalol discontinued 10/25/20 due to QT prolongation greater than 500 milliseconds. Continue metoprolol 25 mg b.i.d.. Maintaining sinus rhythm thus far. Systemic A/C on hold due to fall and subdural hematoma. Overall prognosis guarded. Patient is at significantly elevated stroke risk with recurrent atrial fibrillation off systemic anticoagulation. If fall risk acceptable and cleared from Neurology/Neurosurgery ideally resume systemic anticoagulation as an outpatient. However, in the interval aspirin 81 mg daily likely more reasonable but again requires approval from Neurology/Neurosurgery. Patient remains off antiplatelet and or anticoagulant therapy subsequently. Continue metoprolol 25 mg b.i.d.. No recurrent ventricular tachycardia. No laboratory studies past 24 hours. If remains in house overnight check electrolytes, CBC in a.m.. Patient unless cleared by Neurology/Neurosurgery will remain off antiplatelet or anticoagulation therapy. No other acute cardiovascular issues with require ongoing hospitalization at this time. Follow-up with Dr. Schultz as an outpatient within [facility] [place]. May discontinue telemetry. (3) SDH (subdural hematoma): Code(s): S06.5X9A - Traumatic subdural hemorrhage with loss of consciousness of unspecified duration, initial encounter Status: Acute Assessment and Plan: Traumatic status post fall. He has been awaiting transfer to [facility] for several days. Anticoagulation remains on hold. Repeat CT head today planned. Defer to primary service with regards to management in this regard. (4) Pancytopenia: Code(s): D61.818 - Other pancytopenia Status: Acute Assessment and Plan: Per primary service and Oncology. (5) Lymphoma: Code(s): C85.90 - Non-Hodgkin lymphoma, unspecified, unspecified site Status: Acute Assessment and Plan: On chemotherapy. Oncology following. (6) Severe sepsis: Code(s): A41.9 - Sepsis, unspecified organism; R65.20 - Severe sepsis without septic shock Status: Acute Assessment and Plan: Remains on broad-spectrum antibiotics. Management per primary service. Subjective Date/time seen: Date of service: 10/29/20 14:31 Follow-up for atrial fibrillation Patient remains more alert. Denies chest pain, palpitations or shortness of breath. Denies dizziness. Plan for repeat CT head today. Maintaining sinus rhythm on telemetry, no recurrent ventricular tachycardia. Review of Systems Review of Systems: All systems reviewed & are unremarkable except as noted in HPI and below ROS unobtainable: Yes unobtainable due to mental status Constitutional: Constitutional: Reports as per HPI, Reports fatigue and Reports weakness Eyes: Eyes: Reports as per HPI and Reports no additional eye complaints ENT: Reports system reviewed and no additional complaints, except as documented and Reports as per HPI Cardiovascular: Cardiovascular: Reports as per HPI, Reports no additional cardiovas
--- NOTE | 2020-10-29 16:45 | PC.NURSE ---
This patient, Jonny Ivan, was transferred to [facility] on 10/29/20 at 1631. Personal belongings sent with patient. Report given to NISA Franz. Appropriate documentation sent with patient.
--- NOTE | 2020-10-29 17:46 | PM.IMPN ---
Progress Note: A&P Assessment and Plan (1) Severe sepsis: Code(s): A41.9 - Sepsis, unspecified organism; R65.20 - Severe sepsis without septic shock Status: Acute Assessment and Plan: Initially on vancomycin and imipenem given his low WBC/immune suppressed status. - Blood cultures NTD. - Continue Levofloxacin 10/27/2020-11/01/2020 to complete a 10-day antibiotic course. (2) Pancytopenia: Code(s): D61.818 - Other pancytopenia Status: Acute Assessment and Plan: Initiated on Neupogen 10/27. WBC now improving. Monitor the CBC daily (3) Pneumonia: Qualifiers: Laterality: left Lung location: unspecified part of lung Pneumonia type: due to unspecified organism Qualified Code(s): J18.9 - Pneumonia, unspecified organism Code(s): J18.9 - Pneumonia, unspecified organism Status: Acute Assessment and Plan: As above (4) Lymphoma: Code(s): C85.90 - Non-Hodgkin lymphoma, unspecified, unspecified site Status: Acute Assessment and Plan: - Status post chemotherapy apparently in remission (5) Seizure disorder: Code(s): G40.909 - Epilepsy, unspecified, not intractable, without status epilepticus Status: Acute Assessment and Plan: no recurrent seizure (6) Generalized weakness: Code(s): R53.1 - Weakness Status: Acute (7) Acute kidney injury: Code(s): N17.9 - Acute kidney failure, unspecified Status: Acute Assessment and Plan: Admission creatinine 2.1, baseline around 1, likely consistent with ATN in setting of sepsis and end organ dysfunction: granular casts on UA, creatinine now improved to baseline. Avoid nephrotoxic medications. (8) SDH (subdural hematoma): Code(s): S06.5X9A - Traumatic subdural hemorrhage with loss of consciousness of unspecified duration, initial encounter Status: Acute Assessment and Plan: Subdural hematoma after a fall 10/25 during his hospitalization when he got up on his own along with Acute T11 vertebral facture: Discussed case with neurology. Bleeding is stable. Continue neuro-checks. His mental status and neuralgic status has been stable and unchanged from prior. He is not on anticoagulants (was on prophylactic SubQ enoxaparin 30 mg dose 10/24 AM). Transfused one unit of platelets per request of [facility]surgery at [facility] on 10/25 plts 60 --> 99. I did call and discuss the events with daughter Ina and have updated her daily, she is in agreement with the transfer plan. Repeat CT 10/26 shows decreased size of SDH. We will follow up with [facility] in AM. Additional Plan # DVT prophylaxis - SCDs given low Hgb and platelets with increased bleeding risk # Code status - Full code, per HPI. Subjective Date/time seen: 10/29/20 17:46 Background: Patient is a 75-year-old male who was admitted due to confusion, generalized weakness and fall this afternoon and repeated falls prior to that. He is also noted to be febrile upon arrival in the ER with tachycardia in 150s to 60s. He recently got a COVID booster shot about a week prior to presentation. And has finished chemotherapy for lymphoma in June 2020. He follows up with oncologist in [facility]. Patient in [facility] of is a poor historian and most of his history was taken from medical records. His rhythm from ER his noted to be atrial fibrillation with rapid ventricular rate with hypotension which improved after IV Tylenol and fluid bolus down to 80s to 90s. He was in 120s to 30s with AFib with RVR while I was evaluating but was not in distress. He converted to sinus rhythm spontaneously once I got out of the room. She does not report any history of atrial fibrillation in the past and does not endorse from the medical records as well. On his head CT from 10/26 he is noted to have a left posterior parafalcine subdural hematoma which is stable; repeat imaging today shows small decrease of the subdural hematoma. He had leukopenia with WBC o
--- NOTE | 2020-10-29 18:08 | PM.TDS ---
Transfer Discharge Sum: Prov Provider Date of admission: 10/23/20 20:44 Primary care physician: ALEXANDRU,ISIDRO Pulido M.D. Admitting clinician: Arley Bennett MD Consults: 10/24/20 Consult to Physician Routine Comment: called echange with consult information Consulting Provider: Chris Stinson sports coordinator/MD group to consult: Hematology/Oncology Reason for consultation: Worsening Pancytopenia, recent chemo for lymphoma Has provider been notified: Yes Consult to Physician Routine Comment: called exchange with consult Consulting Provider: Hal Valdovinos sports coordinator/MD group to consult: Cardiology Reason for consultation: New onset atrial fibrillation Has provider been notified: Yes 10/26/20 Consult to Physician Routine Comment: OFFICE NOTIFIED OF CONSULT Consulting Provider: Chris Stinson sports coordinator/MD group to consult: Oncology Reason for consultation: Pancytopenia, recent lymphoma treatment Has provider been notified: Yes 10/29/20 Consult to Physician Routine Comment: Consulting Provider: sports coordinator/MD group to consult: Ortho Reason for consultation: L spine compression Has provider been notified: No Consult to Physician Routine Comment: Consulting Provider: Federico Wesley sports coordinator/MD group to consult: Neurology Reason for consultation: SAH Has provider been notified: Yes DS: Admitting Diagnosis Admitting Diagnosis Altered mental status DS: Discharge Diagnosis Discharge Diagnosis (1) Acute kidney injury: Code(s): N17.9 - Acute kidney failure, unspecified Status: Acute Assessment and Plan: Admission creatinine 2.1, baseline around 1, likely consistent with ATN in setting of sepsis and end organ dysfunction: granular casts on UA, creatinine now improved to baseline. Avoid nephrotoxic medications. (2) Generalized weakness: Code(s): R53.1 - Weakness Status: Acute Assessment and Plan: Likely related to chronic disease and deconditioning. (3) Seizure disorder: Code(s): G40.909 - Epilepsy, unspecified, not intractable, without status epilepticus Status: Acute Assessment and Plan: - No breakthrough seizure in 8 years (4) Decreased appetite: Code(s): R63.0 - Anorexia Status: Acute Assessment and Plan: Improved (5) Diarrhea: Qualifiers: Diarrhea type: unspecified type Qualified Code(s): R19.7 - Diarrhea, unspecified Code(s): R19.7 - Diarrhea, unspecified Status: Acute Assessment and Plan: improved (6) Lymphoma: Code(s): C85.90 - Non-Hodgkin lymphoma, unspecified, unspecified site Status: Acute Assessment and Plan: Currently deemed to be in remission (7) Pneumonia: Qualifiers: Laterality: left Lung location: unspecified part of lung Pneumonia type: due to unspecified organism Qualified Code(s): J18.9 - Pneumonia, unspecified organism Code(s): J18.9 - Pneumonia, unspecified organism Status: Acute Assessment and Plan: - Initially on vancomycin and imipenem given his low WBC/immune suppressed status. - Blood cultures NTD. - De-escalate Abx to single agent Levofloxacin on 10/27/2020. Plan for 10 day total Abx course (last day 11/01). w Hgb and platelets with increased bleeding risk (8) Severe sepsis: Code(s): A41.9 - Sepsis, unspecified organism; R65.20 - Severe sepsis without septic shock Status: Acute Assessment and Plan: # Sepsis due to pulmonary source with evidence of pneumonia and hypoxia, elevated creatinine at 2.1 on presentation. - Mild hypotension which rapidly improved with IV had resuscitation with fever hypotension leukopenia and tachycardia # Left lower lobe pneumonia - Initially on vancomycin and imipenem given his low WBC/immune suppressed status. - Blood cultures NTD. - De-escalate Abx to single agent Levofloxacin on 10/27/2020. Plan for 10 day total Abx course (last day 11/01).
--- NOTE | 2020-10-29 18:36 | PC.NURSE ---
Consult to Dr. Huitron (ortho) cancelled d/t patient being transferred to [facility], waiting ambulance transfer.
[2020-10-29 18:48] LABS: Hematocrit 35.8 % (42.0-52.0); Hemoglobin 11.3 g/dL (14.0-18.0); Immature Platelet Fraction Pct 12.9 % (0.9-11.2); Mean Corpuscular HGB Conc 31.6 g/dl (32-36); Mean Corpuscular Hemoglobin 31.7 pg (26-34); Mean Corpuscular Volume 100.3 fl (80-100); Platelet Count Result 56 k/mm3 (150-375); Red Blood Count 3.57 M/mm3 (4.6-6.20); Red Cell Distribution Width 18.1 % (11.5-14.5); White Blood Count 17.9 K/mm3 (4.5-10.0)
[2020-10-29 18:58] LABS: Anion Gap 9 mmol/L (8-16); Blood Urea Nitrogen 18 mg/dL (9-20); Calcium 8.6 mg/dL (8.4-10.2); Carbon Dioxide 18 mmol/L (22-30); Chloride 107 mmol/L (98-107); Estimated CRCL calculation 55 ml/min; Estimated Glomerular Filt Rate > 60; Glucose 139 mg/dL (65-110); Potassium 3.4 mmol/L (3.4-5.0); Sodium 134 mmol/L (137-145)
--- NOTE | 2020-10-29 19:37 | PC.NURSE ---
Transferring pt to [facility] spoke with Kat Leal RN at 1932. [facility] scheduled to arrive at 2114.
[2020-10-29] MEDS: LATANOPROST 0.005% OP SOLN 2.5 ML BTL 1 DROP EACH EYE (19:47)
== END 2020-10-29 22:05 | disposition short-term general hospital (02) | DRG 871 ==
LOC: ANHED 20:43 → ANHIMU 10-24 06:59 → ANH2MED 11-02 13:59 → ANHIMU 11-02 13:59
PROVIDERS: Internal Medicine; Internal Medicine Cardiovascular Disease; Internal Medicine Hematology & Oncology; Admitting Provider Internal Medicine; Emergency Provider Emergency Medicine; PCP Internal Medicine; Visit Provider Internal Medicine Nephrology
DX: A41.9 Sepsis, unspecified organism (principal); R65.21 Severe sepsis with septic shock; S06.5X9A Traumatic subdural hemorrhage with loss of consciousness of unspecified duration, initial encounter; S22.089A Unspecified fracture of T11-T12 vertebra, initial encounter for closed fracture; J18.9 Pneumonia, unspecified organism; D61.810 Antineoplastic chemotherapy induced pancytopenia; N17.0 Acute kidney failure with tubular necrosis; C85.90 Non-Hodgkin lymphoma, unspecified, unspecified site; D61.818 Other pancytopenia; E87.2 Acidosis; R29.6 Repeated falls; Z20.822 Contact with and (suspected) exposure to COVID-19; Z92.21 Personal history of antineoplastic chemotherapy; G40.909 Epilepsy, unspecified, not intractable, without status epilepticus; T45.1X5A Adverse effect of antineoplastic and immunosuppressive drugs, initial encounter; Y92.9 Unspecified place or not applicable; Z86.73 Personal history of transient ischemic attack (TIA), and cerebral infarction without residual deficits; K21.9 Gastro-esophageal reflux disease without esophagitis; W18.30XA Fall on same level, unspecified, initial encounter; Y93.9 Activity, unspecified; Y92.230 Patient room in hospital as the place of occurrence of the external cause; Y99.9 Unspecified external cause status; R63.0 Anorexia; Z68.24 Body mass index [BMI] 24.0-24.9, adult; I48.0 Paroxysmal atrial fibrillation; I45.10 Unspecified right bundle-branch block
CPT/HCPCS: 36415; 36430; 51701; 70450; 71045; 71250; 72125; 72128; 72131; 80048; 80053; 80069; 80076; 80202; 81001; 82607; 82728; 82746; 82948; 83540; 83550; 83605; 83615; 83735; 84132; 84145; 85025; 85027; 85055; 85060; 85610; 85730; 86140; 86850; 86900; 86901; 86920; 87040; 87086; 87426; 87449; 87899; 93005; 93306; 94640; 96365; 97161; 99285; P9036; P9038; A9270; C9803; J0131; J0743; J1650; J1756; J1956; J2543; J3370; J3475; J7050; J7120; Q5101; U0003; U0005

== ENCOUNTER 2021-02-06 08:18 | Inpatient (IN) | payer MEDICARE, SELFPAY ==
[2021-02-06] VITALS (19 sets, daily range): BP systolic 131–162; BP diastolic 88–96; PULSE 75–87; RESP 16–36; TEMP 36.1–36.4; O2SAT 87–100; BMI 25.0
--- NOTE | ~2021-02-06 | CT_ITS ---
EXAMINATION: CT brain wo con INDICATION: Fall, weakness COMPARISON: 11/15/2020 TECHNIQUE: Standard unenhanced head CT. The dose-length product (DLP) was 681.00 mGy-cm. The mA was a djusted according to patient size. Iterative reconstruction technique was employed. FINDINGS: There is no acute intraparenchymal hemorrhage. No evidence of mass lesion. No evidence of a cute infarction. There are areas of prior infarction in the right frontal lobe as well as the cerebel lum and caudate nuclei. There is moderate periventricular and subcortical hypodensity probably relate d to small vessel ischemic disease. The previously described parafalcine subdural hematoma is no long er evident. There is moderate prominence of the sulci and ventricles related to cerebral atrophy. Int racranial calcified cerebral atherosclerosis is noted. There are no extra-axial collections. There is no mass effect or midline shift. Changes in the globes are likely from ocular lens surgery. There is mucosal thickening of the right maxillary sinus with changes of sinus surgery. There is partial opac ification of the ethmoidal air cells. IMPRESSION: 1. Areas of prior infarction without acute intracranial abnormality. 2. Age related findings. 3. Resolved subdural hematoma. Reviewed, dictated and finalized at location A. LIANCE SPECIALIST
--- NOTE | ~2021-02-06 | XR_ITS ---
EXAMINATION: XR pelvis 1-2V INDICATION: Pain after fall TECHNIQUE: AP view of the pelvis is obtained. COMPARISON: 07/15/2020 FINDINGS: Bone alignment is normal. There is no fracture. There is mild osteoarthritis of the hips. C hanges of hernia repair are noted. IMPRESSION: 1. No acute osseous abnormality. Reviewed, dictated and finalized at location A. E TV INSTALLER
--- NOTE | ~2021-02-06 | XR_ITS ---
EXAMINATION: XR chest 2V DATE: 02/06/2021 08:59 INDICATION: Shortness of breath TECHNIQUE: AP and lateral views of the chest are obtained. COMPARISON: 10/27/2020 FINDINGS: Cardiomegaly is noted. There are moderate-sized left and small right pleural effusions. No pneumothorax is identified. There is mild diffuse interstitial pattern. Airspace opacities are presen t in the mid and lower lung zones. There is mild interval worsening of a T11 compression fracture. He aled left-sided rib fractures are noted. IMPRESSION: 1. Cardiomegaly with mild pulmonary edema. 2. Moderate-sized left and small right pleural effusions. 3. Airspace opacities of the mid and lower lung zones, consistent with atelectasis versus pneumonia. Reviewed, dictated and finalized at location A. ING AND COOLING TECHNICIAN IMPRESSION: 1. Cardiomegaly with mild pulmonary edema. 2. Moderate-sized left and small right pleural effusions. 3. Airspace opacities of the mid and lower lung zones, consistent with atelecta sis versus pneumonia.
--- NOTE | ~2021-02-06 | XR_ITS ---
EXAMINATION: XR chest 1V portable DATE: 02/11/2021 10:46 INDICATION: Shortness of breath. TECHNIQUE: A single frontal view of the chest was obtained. COMPARISON: Chest single view 02/09/2021 FINDINGS: There are small right and moderate-sized left pleural effusions. There are airspace opaciti es in right mid and lower lung zones and all left lung base. No pneumothorax. Cardiomegaly is noted. IMPRESSION: 1. Small right and moderate-sized left pleural effusions with worsening on the right. 2. Stable airspace opacities in right mid and lower lung zones and at left lung base, consistent with atelectasis versus pneumonia. 3. Cardiomegaly. Reviewed, dictated and finalized at location A. GER MOTOR
--- NOTE | ~2021-02-06 | XR_ITS ---
EXAMINATION: XR thoracic spine 3V DATE: 02/06/2021 10:12 INDICATION: Back pain TECHNIQUE: AP, lateral and lateral swimmer's views of the thoracic spine were obtained. COMPARISON: CT, 10/25/2020 FINDINGS: There is worsened anterior vertebral body height loss at the previously described T11 compr ession fracture. No definite new acute fracture is identified. There are patchy opacities of the lung s. A moderate size left pleural effusion is present. IMPRESSION: 1. Mild interval worsening of the previously described T11 compression fracture without compression f racture identified. 2. Moderate-sized left pleural effusion with likely atelectasis of the left lung. Reviewed, dictated and finalized at location A. F TALLY CLERK IMPRESSION: 1. Mild interval worsening of the previously described T11 compression fracture without compression fracture identified. 2. Moderate-sized left pleural effusion with likely atelectasis of the left davida g.
--- NOTE | ~2021-02-06 | XR_ITS ---
EXAMINATION: XR lumbar spine 2-3V DATE: 02/06/2021 10:12 INDICATION: Back pain after fall TECHNIQUE: Anteroposterior and lateral views of the lumbar spine, and cone-down lateral view of the l umbosacral junction were obtained. COMPARISON: CT, 10/25/2020 FINDINGS: There are new mild compression fractures of L1 and L3. Stable L2 and L4 compression fractur es are noted. There is also a chronic, stable burst fracture of L5. The previously described T11 comp ression fracture demonstrates slight worsening interval loss of anterior vertebral body height. Bone alignment is normal. There is mild loss of intervertebral disc space height throughout the lumbar spi ne. Mild bilateral facet osteoarthritis is noted in the lower lumbar spine. IMPRESSION: 1. New mild compression fractures of L1 and L3, stable compression fractures of L2 on L4, stable L5 b urst fracture, and slight worsening of anterior vertebral body height loss at the previously describe d T11 compression fracture. Reviewed, dictated and finalized at location A. STMAS TREE GRADER IMPRESSION: 1. New mild compression fractures of L1 and L3, stable compression fractures of L2 on L4, stable L5 burst fracture, and slight worsening of anterior vertebral body height loss at the previously described T11 compression fracture.
--- NOTE | ~2021-02-06 | CT_ITS ---
EXAMINATION: CT cervical spine wo con DATE: 02/06/2021 10:33 INDICATION: Fall, weakness TECHNIQUE: Computed tomography (CT) of the cervical spine was performed without intravenous contrast. The dose-length product (DLP) was 434.65 mGy-cm. Automated exposure control and iterative reconstruc tion technique were employed. COMPARISON: 10/25/2020 FINDINGS: There is no fracture, dislocation, or subluxation. There is mild loss of intervertebral dis c space height at C6-7. The odontoid is intact. The prevertebral soft tissues are normal. There is mi ld multilevel facet and uncovertebral joint osteoarthritis. There is a persistent moderate-sized left pleural effusion. IMPRESSION: 1. Mild cervical spondylosis without acute findings or significant interval change. Reviewed, dictated and finalized at location A. ERDAM CONSTRUCTION SUPERVISOR IMPRESSION: 1. Mild cervical spondylosis without acute findings or significant interval sydney nge.
--- NOTE | ~2021-02-06 | XR_ITS ---
EXAMINATION: XR chest 1V portable EXAM DATE: 02/09/2021 13:28 INDICATION: Increased heart rate. TECHNIQUE: Portable AP frontal chest x-ray was obtained. Comparison is made to prior examination from 02/06/2021. FINDINGS: There is improvement in cardiomegaly and pulmonary vascular congestion, improvement in prev iously seen airspace disease probably pulmonary edema. There is persistent moderate left pleural effu lesley with adjacent multisegmental consolidation at least partly atelectasis. Overall findings are mos t consistent with CHF exacerbation with mild interval improvement. Pneumonia not excludable. There ar e some skin folds overlying the left hemithorax, no pneumothorax suspected. There are mild bony degen erative changes. IMPRESSION: 1. Findings consistent with CHF exacerbation, mild interval improvement. 2. Moderate left pleural effusion, adjacent atelectasis. 3. Pneumonia not excludable. Reviewed, dictated and finalized at location B. CIATE ENGINEER
--- NOTE | 2021-02-06 08:44 | ECG_ITS ---
Measurements Intervals [place] Rate: 80 P: 11 NM: 137 QRS: -56 QRSD: 123 T: 2 QT: 419 QTc: 486 Interpretive Statements SINUS RHYTHM VENTRICULAR PREMATURE COMPLEX RIGHT BUNDLE BRANCH BLOCK LEFT ANTERIOR FASCICULAR BLOCK BASELINE ARTIFACT- I, II, III, V1 ABNORMAL ECG Electronically Signed On 02-06-2021 12:23:56 PATIENT COORDINATOR FRONT DESK by Fernando Ruiz D.O.
[2021-02-06 09:20] LABS: Basophils Percent Auto 0.1 % (0.2-1.2); Hematocrit 33.1 % (42.0-52.0); Immature Granulocyte Absolute 0.47 K/mm3 (0.00-0.031); Immature Granulocyte Percent A 2.3 % (0-0.5); Immature Platelet Fraction Pct 5.2 % (0.9-11.2); Lymphocytes Absolute Auto 0.26 K/mm3 (0.9-3.2); Lymphocytes Percent Auto 1.3 % (18.3-44.2); Mean Corpuscular HGB Conc 33.2 g/dl (32-36); Mean Corpuscular Hemoglobin 34.1 pg (26-34); Mean Corpuscular Volume 102.5 fl (80-100); Mean Platelet Volume 10.5 fl (7.4-10.4); Monocytes Absolute Auto 1.9 K/mm3 (0.1-0.6); Monocytes Percent Auto 9.2 % (2.6-8.5); Neutrophils Percent Auto 87.1 % (45.5-73.1); Platelet Count Result 95 k/mm3 (150-375); Red Blood Count 3.23 M/mm3 (4.6-6.20); Red Cell Distribution Width 13.9 % (11.5-14.5); White Blood Count 20.7 K/mm3 (4.5-10.0)
[2021-02-06 09:38] LABS: Anisocytosis 1+ (NORMAL); Ovalocytes 2+ (NORMAL); Poikilocytosis 1+ (NORMAL); Tear Drop Cells 1+ (NORMAL)
[2021-02-06 10:04] LABS: Alanine Aminotransferase 33 U/L (4-50); Albumin Level 4.5 g/dL (3.5-5.1); Alkaline Phosphatase 103 U/L (38-126); Anion Gap 12 mmol/L (8-16); Aspartate Amino Transferase 72 U/L (17-59); Bilirubin,Total 0.5 mg/dL (0.2-1.3); Blood Urea Nitrogen 24 mg/dL (9-20); Calcium 9.2 mg/dL (8.4-10.2); Carbon Dioxide 19 mmol/L (22-30); Chloride 107 mmol/L (98-107); Estimated Glomerular Filt Rate 59; Glucose 99 mg/dL (65-110); Potassium 4.1 mmol/L (3.4-5.0); Sodium 138 mmol/L (137-145)
[2021-02-06 10:35] LABS: Creatine Kinase 2578 U/L (55-170); NT Pro B Type Natriuretic Pept 5050 pg/mL (5-100); Troponin I 0.463 ng/mL (0.000-0.034)
--- NOTE | 2021-02-06 10:37 | ED.GENADULT ---
HPI - General Adult General Chief complaint: Fall Stated complaint: weakness Time Seen by Provider: 02/06/21 08:31 Source: EMS and RN notes reviewed Mode of arrival: EMS Limitations: altered mental status History of Present Illness HPI narrative: Patient brought to the emergency room by ambulance from assisting living. Patient found on the floor next to his bed at 7:45 AM today, confused, unable to call, sweating, weak unable to get up with urine incontinence. Patient baseline is awake, alert and oriented x4, patient walks without assistant media planner or walker, patient normally dress himself and manage to take care of himself. Patient is full code. Related Data Home Medications Medication Instructions Recorded Confirmed fluticasone propionate 50 mcg INTRANASAL DAILY 10/06/20 10/23/20 latanoprost 1 drp EACH EYE HS 10/06/20 10/23/20 topiramate See Rx Instructions .ROUTE .COMPLEX 10/06/20 10/23/20 valacyclovir 500 mg PO BID 10/06/20 10/23/20 Allergies Allergy/AdvReac Type Severity Reaction Status Date / Time tomato Allergy Unknown Unknown Verified 10/23/20 22:14 aprepitant Allergy Rash Verified 10/24/20 03:08 ONION Allergy Mild Unknown Uncoded 10/23/20 22:14 Review of Systems Review of Systems: ROS unobtainable: Yes unobtainable due to mental status PMFSH Past Medical History Medical History Anemia CHI (closed head injury) Diarrhea Esophagitis Failure to thrive Lymphoma Seizures Surgical History Surgical History H/O prostatectomy History of appendectomy History of hernia surgery Family History Family History Mother Breast cancer Father Lymphoma Social History Social History Social History: Patient would like to be a full code and would like his son and daughter Maria E as his surrogate decision maker if needed. He has never smoked cigarettes. He drinks about 1-2 drinks socially a week if he goes out with his friends. 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 No drugs Smoking status: Never smoker Second hand tobacco smoke exposure: Yes Alcohol intake: never Drinks per week: 1 Substance use: never Gender identity (if verbalized by the patient): Male Spiritual care concerns: No Exam Narrative: General appearance: Well-developed, well-nourished Skin: Normal color Head: Normocephalic, nontraumatic Eyes: Clear conjunctiva ENT: Dry mouth Neck: Stiff neck Chest and respiratory: Airway patent, no respiratory distress, no accessory muscle use Heart: Regular rate/rhythm Abdomen: Soft, nontender, no organomegaly, quiet bowel sounds Vascular: Normal peripheral pulses, normal capillary refill. Musculoskeletal: Able to move all extremities slowly Neurologic: Alert and oriented ?3, left facial drooping Course Course Emergency Course: Improving Vital Signs Vital signs: Vital Signs Pulse Rate 87 02/06/21 08:29 Respiratory Rate 36 H 02/06/21 08:29 Blood Pressure 138/90 02/06/21 08:29 Pulse Oximetry 87 L 02/06/21 08:29 Temperature 36.4 C 02/06/21 08:40 Pulse Rate 80 02/06/21 09:31 Respiratory Rate 25 H 02/06/21 09:31 Blood Pressure 133/93 H 02/06/21 09:31 Pulse Oximetry 98 02/06/21 09:31 Medical Decision Making MDM Narrative Medical decision making narrative: Patient presents with confusion and fall. Differential diagnosis as below. Labs, CT scan head and neck, chest x-ray, urine analysis ordered Differential Diagnosis Differential Diagnosis: Dehydration, electrolyt
[2021-02-06 10:47] LABS: Alveolar/Arterial O2 Gradient 142.2 mmHg; Base Excess ABG -5.7 mEq/l (+/-2.0); Device NASAL CANNULA; Fractional Inspired Oxygen 36 %; HCO3 ABG 17.5 mEq/l (22.0-26.0); Modified Allen's Test Pass; Oxygen Saturation ABG 96.5 % (95.0-100.0); Oxyhemoglobin 94.5 % THb (90.0-100.0); PCO2 ABG 27.6 mmHg (35.0-45.0); PO2 ABG 82.5 mmHg (80.0-100.0); PO2 FiO2 Ratio Arterial Blood 2.29 %; Site Drawn RIGHT RADIAL; Total Hemoglobin 11.2 g/dL (12.0-18.0); pH ABG 7.421 (7.350-7.450)
[2021-02-06 10:59] LABS: INR 1.3; Partial Thromboplastin Time 31.1 SECONDS (22.3-36.8); Prothrombin Time 15.8 Seconds (11.1-14.7)
[2021-02-06] MEDS: SODIUM CHLORIDE 0.9% IV 1,000 ML 999 ML IV CONT (11:44)
[2021-02-06 12:08] LABS: EDCOVIDSCREEN Negative (Negative)
[2021-02-06 12:27] LABS: Add Urine Microscopic? YES; Appearance Urine Clear (Clear); Bilirubin Urine Negative (Negative); Blood Urine 3+ (Negative); Color Urine Yellow (Yellow); Glucose Urine UA Negative (Negative); Ketones Urine Negative (Negative); Leukocyte Esterase Ur Negative LEU/UL (Negative); Mucus Urine Rare /lpf; Nitrate Urine Negative (Negative); Protein Urine 1+ mg/dL (Negative); Specific Grav Ur 1.017 (1.001-1.035); Urobilinogen Urine Negative mg/dL (<2.0); WBC Urine 0-3 /hpf
[2021-02-06 12:33] LABS: Amphetamine Screen Urine Negative (Negative); Barbiturate Screen Urine Negative (Negative); Benzodiazepines Screen Urine Negative (Negative); Cannabinoid Screen Urine Negative (Negative); Cocaine Screen Urine Negative (Negative); Methadone Screen Urine Negative (Negative); Opiate Screen Urine Negative (Negative); Phencyclidine Screen Urine Negative (Negative)
[2021-02-06] MEDS: PIPERACILLIN/TAZOBACTAM SOD 4.5 GM in SODIUM CHLORIDE 0.9% IV 100 ML 200 ML IVPB ×2 (13:26→18:20)
--- NOTE | 2021-02-06 15:03 | ADMGEN ---
This patient, Jonny Ivan, was admitted to Medical Room 342-01. Patient/family oriented to hospital policies and general routines including ID bracelet, bed and alarms, visiting hours, pain management, procedures, bathroom and other care routines, personal items, smoking policy, room service/diet, and visiting hours. Information on how to activate the Rapid Response Team has been discussed. Patient/Family are encouraged to report perceived risks to care and to ask questions if they do not understand what they are told or what they should do.
--- NOTE | 2021-02-06 15:39 | PM.IMHP ---
H&P: HPI History of Present Illness Date/Time: 02/06/21 15:39 ED-HPI: narrative: Patient brought to the emergency room by ambulance from assisting living. Patient found on the floor next to his bed at 7:45 AM today, confused, unable to call, sweating, weak unable to get up with urine incontinence. Patient baseline is awake, alert and oriented x4, patient walks without geriatric nurse assistant or walker, patient normally dress himself and manage to take care of himself. Patient is full code. unfortunately patient still quite confused unable to provide any detail review of symptoms or history, in ER patient, patient had CT scan of head, and cervical spine without any acute injury, similarly patient had thoracic spine did not show any acute injury, however lumbar spine showed New mild compression fractures of L1 and L3, stable compression fractures of L2 on L4, stable L5 burst fracture, and slight worsening of anterior vertebral body height loss at the previously described T11 compression fracture. 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 patient is admitted as an observation Chief Complaint: AMS Review of Systems Review of Systems: ROS unobtainable: Yes unobtainable due to medical condition PMFSH Past Medical History Medical History Anemia CHI (closed head injury) Diarrhea Esophagitis Failure to thrive Lymphoma Seizures Surgical History Surgical History H/O prostatectomy History of appendectomy History of hernia surgery Family History Family History Mother Breast cancer Father Lymphoma Social History Social History Social History: Patient would like to be a full code and would like his son and daughter Maria E as his surrogate decision maker if needed. He has never smoked cigarettes. He drinks about 1-2 drinks socially a week if he goes out with his friends. 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 Smoking status: Never smoker Second hand tobacco smoke exposure: Yes Alcohol intake: current Drinks per week: 1 Substance use: never Gender identity (if verbalized by the patient): Male Spiritual care concerns: No Meds Home Medications and Allergies Home Medications Medication Instructions Recorded Confirmed Type fluticasone propionate 50 mcg INTRANASAL DAILY PRN 10/06/20 02/06/21 History latanoprost 1 drp EACH EYE HS 10/06/20 02/06/21 History topiramate [Topamax] 50 mg BID 10/06/20 02/06/21 History valacyclovir 500 mg PO BID 10/06/20 02/06/21 History apixaban [Eliquis] 5 mg PO BID 02/07/21 02/07/21 History metoprolol succinate 25 mg PO DAILY 02/07/21 02/07/21 History pantoprazole [Protonix] 40 mg PO DAILY 02/07/21 02/07/21 History tamsulosin [Flomax] 0.4 mg PO DAILY 02/07/21 02/07/21 History Allergies Allergy/AdvReac Type Severity Reaction Status Date / Time tomato Allergy Unknown Unknown Verified 10/23/20 22:14 aprepitant Allergy Rash Verified 10/24/20 03:08 ONION Allergy Mild Unknown Uncoded 10/23/20 22:14 Vital Signs Vital Signs - 24 hr 02/06/21 08:29 02/06/21 08:32 02/06/21 08:33 Temperature Pulse Rate 87 85 86 Respiratory Rate 36 H 36 H 32 H Blood Pressure 138/90 138/90 Pulse Oximetry 87 L 90 91 02/06/21 08:40 02/06/21 08:45 02/06/21 08:46 Temperature 97.6 F Pulse Rate 84 82 84 Respiratory Rate 26 H 25 H 25 H Blood Pressure 131/92 H Pulse Oximetry 94 96 96 02/06/21 09:03 02/06/21 09:12 02/06/21 09:15 Temperature Pulse Rate 85 83 83 Respiratory Rate 29 H 26 H 23 H Blood Pressure 141/88 H Pulse Oximetry 9
[2021-02-06 16:10] LABS: Glucose Point of Care 75 mg/dl (65-105)
[2021-02-07] VITALS (10 sets, daily range): BP systolic 130–142; BP diastolic 74–95; PULSE 69–89; RESP 16–28; TEMP 36–36.9; O2SAT 94–100
[2021-02-07] MEDS: PIPERACILLIN/TAZOBACTAM SOD 4.5 GM in SODIUM CHLORIDE 0.9% IV 100 ML 200 ML IVPB ×5 (00:16→23:16)
[2021-02-07 06:46] LABS: Basophils Percent Auto 0.1 % (0.2-1.2); Hematocrit 32.6 % (42.0-52.0); Hemoglobin 10.6 g/dL (14.0-18.0); Immature Granulocyte Absolute 0.29 K/mm3 (0.00-0.031); Immature Granulocyte Percent A 1.9 % (0-0.5); Immature Platelet Fraction Pct 6.1 % (0.9-11.2); Mean Corpuscular HGB Conc 32.5 g/dl (32-36); Mean Corpuscular Hemoglobin 34.1 pg (26-34); Mean Corpuscular Volume 104.8 fl (80-100); Mean Platelet Volume 11.7 fl (7.4-10.4); Monocytes Absolute Auto 1.8 K/mm3 (0.1-0.6); Monocytes Percent Auto 11.4 % (2.6-8.5); Neutrophils Percent Auto 84.6 % (45.5-73.1); Platelet Count Result 86 k/mm3 (150-375); Red Blood Count 3.11 M/mm3 (4.6-6.20); Red Cell Distribution Width 14.2 % (11.5-14.5); White Blood Count 15.4 K/mm3 (4.5-10.0)
[2021-02-07 06:50] LABS: Anion Gap 9 mmol/L (8-16); Blood Urea Nitrogen 19 mg/dL (9-20); Calcium 8.8 mg/dL (8.4-10.2); Carbon Dioxide 22 mmol/L (22-30); Chloride 108 mmol/L (98-107); Estimated CRCL calculation 47 ml/min; Estimated Glomerular Filt Rate 54; Glucose 130 mg/dL (65-110); Potassium 3.2 mmol/L (3.4-5.0); Sodium 139 mmol/L (137-145)
[2021-02-07] MEDS: POTASSIUM CHLORIDE 20 MEQ TABLET 40 MEQ PO (08:49)
[2021-02-07] MEDS: valACYclovir HCL 500 MG TABLET PO ×2 (08:50→16:38)
[2021-02-07 11:52] LABS: Glucose Point of Care 175 mg/dl (65-105)
[2021-02-07] MEDS: TOPIRAMATE 100 MG TABLET PO ×2 (11:54→16:38)
[2021-02-07] MEDS: TOPIRAMATE 25 MG TABLET 50 MG PO ×2 (11:54→16:38)
--- NOTE | 2021-02-07 14:15 | PM.IMPN ---
Progress Note: A&P Assessment and Plan (1) Pneumonia: Qualifiers: Laterality: unspecified laterality Lung location: unspecified part of lung Pneumonia type: due to unspecified organism Qualified Code(s): J18.9 - Pneumonia, unspecified organism Code(s): J18.9 - Pneumonia, unspecified organism Status: Acute Assessment and Plan: unfortunately patient still quite confused unable to provide any detail review of symptoms or history, in ER patient, patient had CT scan of head, and cervical spine without any acute injury, similarly patient had thoracic spine did not show any acute injury, however lumbar spine showed New mild compression fractures of L1 and L3, stable compression fractures of L2 on L4, stable L5 burst fracture, and slight worsening of anterior vertebral body height loss at the previously described T11 compression fracture. 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 02/07/2021 patient remains quite confused unable to provide any review of symptoms, will continue treat for pneumonia with Zosyn, Levophed and vancomycin. will gently diurese the patient and have PT OT evaluate and further recommendation to follow (2) Bilateral pleural effusion: Code(s): J90 - Pleural effusion, not elsewhere classified Status: Acute Assessment and Plan: will gently diurese the patient (3) Paroxysmal atrial fibrillation: Code(s): I48.0 - Paroxysmal atrial fibrillation Status: Acute Assessment and Plan: currently in sinus rhythm, anticoagulated with eliquis (4) Closed compression fracture of L3 vertebra: Qualifiers: Encounter type: subsequent encounter Fracture healing: with nonunion Qualified Code(s): S32.030K - Wedge compression fracture of third lumbar vertebra, subsequent encounter for fracture with nonunion Code(s): S32.030A - Wedge compression fracture of third lumbar vertebra, initial encounter for closed fracture Status: Acute Assessment and Plan: New mild compression fractures of L1 and L3, stable compression fractures of L2 on L4, stable L5 burst fracture, and slight worsening of anterior vertebral body height loss at the previously described T11 compression fracture. will have PT/OT evaluate the patient. Subjective Date/time seen: 02/07/21 14:15 unfortunately patient still quite confused unable to provide any detail review of symptoms or history, in ER patient, patient had CT scan of head, and cervical spine without any acute injury, similarly patient had thoracic spine did not show any acute injury, however lumbar spine showed New mild compression fractures of L1 and L3, stable compression fractures of L2 on L4, stable L5 burst fracture, and slight worsening of anterior vertebral body height loss at the previously described T11 compression fracture. 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 02/07/2021 patient remains quite confused unable to provide any review of symptoms, will continue treat for pneumonia with Zosyn, Levophed and vancomycin. will gently diurese the patient and have PT OT evaluate and further recommendation to follow Review of Systems Review of Systems: ROS unobtainable: Yes unobtainable due to medical condition Exam Narrative: elderly frail Patient is comfortable, NAD HEENT: eyes are clear and none icteric LUNGS: bilateral fair air entry with rhonchi HEART: RR S1S2 ABD: BS+, Soft and nontender Lower extremities: no edema SKIN: nonjaundiced N
[2021-02-07] MEDS: FUROSEMIDE INJ 40 MG/4 ML VIAL 20 MG IV PUSH (14:50)
[2021-02-07] MEDS: APIXABAN 5 MG TABLET PO (16:38)
[2021-02-07] MEDS: LATANOPROST 0.005% OP SOLN 2.5 ML BTL 1 DROP EACH EYE (20:51)
[2021-02-08] VITALS (12 sets, daily range): BP systolic 104–150; BP diastolic 71–90; PULSE 72–150; RESP 16–24; TEMP 35.9–36.6; O2SAT 98–100
[2021-02-08] MEDS: METOPROLOL TARTRATE 50 MG TAB PO (01:44)
[2021-02-08] MEDS: PIPERACILLIN/TAZOBACTAM SOD 4.5 GM in SODIUM CHLORIDE 0.9% IV 100 ML 200 ML IVPB (05:11)
[2021-02-08 05:56] LABS: Hematocrit 34.9 % (42.0-52.0); Hemoglobin 11.5 g/dL (14.0-18.0); Immature Platelet Fraction Pct 7.1 % (0.9-11.2); Mean Corpuscular Volume 103.3 fl (80-100); Mean Platelet Volume 11.7 fl (7.4-10.4); Platelet Count Result 103 k/mm3 (150-375); Red Blood Count 3.38 M/mm3 (4.6-6.20); Red Cell Distribution Width 14.1 % (11.5-14.5); White Blood Count 16.8 K/mm3 (4.5-10.0)
[2021-02-08 06:19] LABS: Anion Gap 12 mmol/L (8-16); Blood Urea Nitrogen 20 mg/dL (9-20); Calcium 8.9 mg/dL (8.4-10.2); Carbon Dioxide 19 mmol/L (22-30); Chloride 109 mmol/L (98-107); Estimated CRCL calculation 44 ml/min; Estimated Glomerular Filt Rate 49; Glucose 107 mg/dL (65-110); Potassium 3.1 mmol/L (3.4-5.0); Sodium 140 mmol/L (137-145)
[2021-02-08] MEDS: valACYclovir HCL 500 MG TABLET PO ×2 (09:45→18:04)
[2021-02-08] MEDS: TAMSULOSIN HCL 0.4 MG CAPSULE PO (09:45)
[2021-02-08] MEDS: PANTOPRAZOLE 40 MG TABLET PO (09:45)
[2021-02-08] MEDS: TOPIRAMATE 100 MG TABLET PO ×2 (09:45→18:04)
[2021-02-08] MEDS: APIXABAN 5 MG TABLET PO ×2 (09:45→18:03)
[2021-02-08] MEDS: FUROSEMIDE INJ 40 MG/4 ML VIAL 20 MG IV PUSH (09:46)
[2021-02-08] MEDS: METOPROLOL SUCCINATE EXT REL 25 MG TABCR PO (09:47)
[2021-02-08] MEDS: TOPIRAMATE 25 MG TABLET 50 MG PO ×2 (10:36→18:03)
--- NOTE | 2021-02-08 11:13 | PM.IMPN ---
Progress Note: A&P Assessment and Plan (1) Pneumonia: Qualifiers: Laterality: unspecified laterality Lung location: unspecified part of lung Pneumonia type: due to unspecified organism Qualified Code(s): J18.9 - Pneumonia, unspecified organism Code(s): J18.9 - Pneumonia, unspecified organism Status: Acute Assessment and Plan: DC IV vanc Zosyn and Levaquin Follow culture results Started on IV Rocephin and azithromycin on 02/08/2021 plan for 5 more days of antibiotic 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 Continue to monitor continue diuresis (3) Paroxysmal atrial fibrillation: Code(s): I48.0 - Paroxysmal atrial fibrillation Status: Acute Assessment and Plan: currently in sinus rhythm, anticoagulated with eliquis (4) Closed compression fracture of L3 vertebra: Qualifiers: Encounter type: subsequent encounter Fracture healing: with nonunion Qualified Code(s): S32.030K - Wedge compression fracture of third lumbar vertebra, subsequent encounter for fracture with nonunion Code(s): S32.030A - Wedge compression fracture of third lumbar vertebra, initial encounter for closed fracture Status: Acute Assessment and Plan: New mild compression fractures of L1 and L3, stable compression fractures of L2 on L4, stable L5 burst fracture, and slight worsening of anterior vertebral body height loss at the previously described T11 compression fracture. Pain control DVT prophylaxis PT OT (5) Altered mental status: Code(s): R41.82 - Altered mental status, unspecified Status: Acute Assessment and Plan: Most likely related to acute metabolic encephalopathy secondary to pneumonia improved Subjective Date/time seen: 02/08/21 11:13 Interval history: Patient is more alert today patient is currently treated for pneumonia and CHF exacerbation, in ER patient, patient had CT scan of head, and cervical spine without any acute injury, similarly patient had thoracic spine did not show any acute injury, however lumbar spine showed New mild compression fractures of L1 and L3, stable compression fractures of L2 on L4, stable L5 burst fracture, and slight worsening of anterior vertebral body height loss at the previously described T11 compression fracture. 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 Antibiotic was adjusted to Rocephin and azithromycin on 02/08/2021 Patient still complains of generalized weakness Denies fever chills abdominal pain I am seeing patient for pneumonia Exam Narrative: Alert Chest decreased air entry bilateral Abdomen nontender nondistended CVS S1 + S2 positive lower extremity edema Objective Data Vital Signs Vital Signs: Vital Signs - 24 hr 02/07/21 11:19 02/07/21 12:00 02/07/21 14:35 Temperature 97.1 F L Pulse Rate 89 81 Respiratory Rate 22 H Blood Pressure 130/74 140/95 H Pulse Oximetry 100 02/07/21 16:00 02/07/21 20:00 02/07/21 20:52 Temperature 96.8 F L Pulse Rate 79 81 69 Respiratory Rate 16 Blood Pressure 137/95 H Pulse Oximetry 100 02/08/21 00:00 02/08/21 01:13 02/08/21 01:44 Temperature 96.8 F L Pulse Rate 78 150 H 135 H Respiratory Rate 24 H Blood Pressure 150/85 H Pulse Oximetry 98 02/08/21 03:47 02/08/21 04:00 02/08/21 09:47 Temperature 96.6 F L Pulse Rate 122 H 101 H 85 Respiratory Rate 18 Blood Pressure 128/90 Pulse Oximetry 99 Intake/Output Intake/Output: Intake & Output 02/05/21 02/06/21 02/07/21 02/08/21 23:59 23:5
[2021-02-08] MEDS: DOXYCYCLINE IV 100 MG in SODIUM CHLORIDE 0.9% IV 100 ML IVPB ×2 (12:35→20:13)
[2021-02-08] MEDS: cefTRIAXone 2 GM in SODIUM CHLORIDE 0.9% IV 100 ML 200 ML IVPB (13:39)
[2021-02-08] MEDS: LATANOPROST 0.005% OP SOLN 2.5 ML BTL 1 DROP EACH EYE (20:14)
[2021-02-09] VITALS (13 sets, daily range): BP systolic 109–142; BP diastolic 73–87; PULSE 75–132; RESP 16–18; TEMP 36.6–36.8; O2SAT 96–99
[2021-02-09 06:37] LABS: Hematocrit 33.6 % (42.0-52.0); Hemoglobin 11.1 g/dL (14.0-18.0); Immature Platelet Fraction Pct 7.5 % (0.9-11.2); Mean Corpuscular Hemoglobin 34.7 pg (26-34); Mean Platelet Volume 11.6 fl (7.4-10.4); Platelet Count Result 94 k/mm3 (150-375); Red Cell Distribution Width 13.9 % (11.5-14.5); White Blood Count 12.3 K/mm3 (4.5-10.0)
[2021-02-09 06:48] LABS: Anion Gap 11 mmol/L (8-16); Blood Urea Nitrogen 20 mg/dL (9-20); Calcium 8.7 mg/dL (8.4-10.2); Carbon Dioxide 22 mmol/L (22-30); Chloride 109 mmol/L (98-107); Estimated CRCL calculation 44 ml/min; Estimated Glomerular Filt Rate 49; Glucose 95 mg/dL (65-110); Potassium 3.1 mmol/L (3.4-5.0); Sodium 142 mmol/L (137-145)
[2021-02-09] MEDS: APIXABAN 5 MG TABLET PO ×2 (08:47→18:14)
[2021-02-09] MEDS: TAMSULOSIN HCL 0.4 MG CAPSULE PO (08:48)
[2021-02-09] MEDS: FUROSEMIDE INJ 40 MG/4 ML VIAL 20 MG IV PUSH ×2 (08:48→18:14)
[2021-02-09] MEDS: METOPROLOL SUCCINATE EXT REL 25 MG TABCR PO (08:48)
[2021-02-09] MEDS: TOPIRAMATE 25 MG TABLET 50 MG PO ×2 (08:48→18:13)
[2021-02-09] MEDS: PANTOPRAZOLE 40 MG TABLET PO (08:49)
[2021-02-09] MEDS: TOPIRAMATE 100 MG TABLET PO ×2 (08:49→18:14)
[2021-02-09] MEDS: valACYclovir HCL 500 MG TABLET PO ×2 (08:49→18:13)
[2021-02-09] MEDS: DOXYCYCLINE IV 100 MG in SODIUM CHLORIDE 0.9% IV 100 ML IVPB ×2 (08:50→21:47)
[2021-02-09] MEDS: cefTRIAXone 2 GM in SODIUM CHLORIDE 0.9% IV 100 ML 200 ML IVPB (11:53)
--- NOTE | 2021-02-09 12:46 | ECG_ITS ---
Measurements Intervals [place] Rate: 136 P: PA: 0 QRS: -51 QRSD: 128 T: 27 QT: 365 QTc: 550 Interpretive Statements ATRIAL FIBRILLATION WITH RAPID VENTRICULAR RESPONSE VENTRICULAR PREMATURE COMPLEXES RIGHT BUNDLE BRANCH BLOCK LEFT ANTERIOR FASCICULAR BLOCK BASELINE ARTIFACT- I, III, AVL ABNORMAL ECG Electronically Signed On 02-09-2021 13:21:55 [employer] by Fernando Ruiz D.O.
[2021-02-09] MEDS: METOPROLOL TARTRATE INJ 5 MG/5 ML VIAL IV PUSH ×2 (13:34→18:13)
--- NOTE | 2021-02-09 13:45 | PM.IMPN ---
Progress Note: A&P Assessment and Plan (1) Pneumonia: Qualifiers: Laterality: unspecified laterality Lung location: unspecified part of lung Pneumonia type: due to unspecified organism Qualified Code(s): J18.9 - Pneumonia, unspecified organism Code(s): J18.9 - Pneumonia, unspecified organism Status: Acute Assessment and Plan: Treated with IV antibiotics patient will be discharged on oral antibiotic WCC ARE NL, BC negative to date. 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 Continue to monitor continue diuresis with iv lasix patient will be discharged on oral diuretics repeat chest x-ray in 4 weeks (3) Paroxysmal atrial fibrillation: Code(s): I48.0 - Paroxysmal atrial fibrillation Status: Acute Assessment and Plan: Currently in sinus rhythm, anticoagulated with Eliquis, pt seen by cardiology see recommendations patient developed episodes of AFib with RVR the Toprol dose was increased to 50 mg daily (4) Closed compression fracture of L3 vertebra: Qualifiers: Encounter type: subsequent encounter Fracture healing: with nonunion Qualified Code(s): S32.030K - Wedge compression fracture of third lumbar vertebra, subsequent encounter for fracture with nonunion Code(s): S32.030A - Wedge compression fracture of third lumbar vertebra, initial encounter for closed fracture Status: Acute Assessment and Plan: New mild compression fractures of L1 and L3, stable compression fractures of L2 on L4, stable L5 burst fracture, and slight worsening of anterior vertebral body height loss at the previously described T11 compression fracture. Pain control DVT prophylaxis PT OT Follow-up with spine surgeon as outpatient (5) Altered mental status: Code(s): R41.82 - Altered mental status, unspecified Status: Acute Assessment and Plan: Resolving likley secondary to infection resolved (6) Seizure disorder: Code(s): G40.909 - Epilepsy, unspecified, not intractable, without status epilepticus Status: Acute Assessment and Plan: History of seizure disorder resume home dose of Topamax Subjective Date/time seen: 02/09/2021 Interval history: Patient is more alert today patient is currently treated for pneumonia and CHF exacerbation, in ER patient, patient had CT scan of head, and cervical spine without any acute injury, similarly patient had thoracic spine did not show any acute injury, however lumbar spine showed New mild compression fractures of L1 and L3, stable compression fractures of L2 on L4, stable L5 burst fracture, and slight worsening of anterior vertebral body height loss at the previously described T11 compression fracture. 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 Antibiotic was adjusted to Rocephin and azithromycin on 02/08/2021 Patient still complains of generalized weakness Denies fever chills abdominal pain I am seeing patient for pneumonia Objective Data Meds/Results Radiology Results: ITS Impressions Lumbar Spine X-Ray 02/06/21 10:18 IMPRESSION: 1. New mild compression fractures of L1 and L3, stable compression fractures of L2 on L4, stable L5 burst fracture, and slight worsening of anterior vertebral body height loss at the previously described T11 compression fracture. Head CT 02/06/21 10:52 IMPRESSION: 1. Areas of prior infarction without acute intracranial abnormality. 2. Age related findings. 3. Resolved subdural hematoma. Pelvis X-Ray 02/06/21 11:08 IMPRESSION: 1. No acute os
[2021-02-09 13:56] LABS: Magnesium 1.6 mg/dL (1.6-2.3)
[2021-02-09 14:10] LABS: Troponin I 0.049 ng/mL (0.000-0.034)
[2021-02-09] MEDS: SODIUM CHLORIDE 0.9% IV 1,000 ML 500 ML IV CONT (14:49)
--- NOTE | 2021-02-09 15:56 | PM.CNCAR ---
Assessment and Plan Assessment and plan (1) Paroxysmal atrial fibrillation: Code(s): I48.0 - Paroxysmal atrial fibrillation Status: Acute Assessment and Plan: Patient presented in sinus rhythm after Toprol XL has been held for least 2 days developing AFib with RVR heart rates up to 140-150 beats per minute. Patient asymptomatic. Hemodynamically stable. Increase Toprol XL to 50 mg daily. Agree with IV metoprolol provided with improved heart rate control. Initiate diltiazem infusion of heart remains poorly controlled greater than 120-130 beats per minute which would require transfer to IMU. He remains on systemic anticoagulation. Need to clarify if re-initiation of anticoagulation was cleared by Neurosurgery given recent traumatic fall with head bleed. Given his presentation ongoing candidacy for systemic anticoagulation is highly questionable. Given radiographic evidence of prior stroke patient remains at high risk for recurrent embolic stroke off anticoagulation yet high risk for bleed and potential catastrophic complications on anticoagulation. Very difficult clinical scenario. (2) Altered mental status: Code(s): R41.82 - Altered mental status, unspecified Status: Acute Assessment and Plan: Per hospitalist service. Thought secondary to acute metabolic encephalopathy related to pneumonia. (3) Pneumonia: Qualifiers: Laterality: unspecified laterality Lung location: unspecified part of lung Pneumonia type: due to unspecified organism Qualified Code(s): J18.9 - Pneumonia, unspecified organism Code(s): J18.9 - Pneumonia, unspecified organism Status: Acute Assessment and Plan: Per hospitalist service. He remains on IV antibiotics. I would discontinue IV Lasix at this time as he does not appear to be clinically volume overloaded. 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 As above. (5) History of subdural hematoma (post traumatic): Code(s): Z87.828 - Personal history of other (healed) physical injury and trauma Status: Acute Assessment and Plan: Defer to primary service. Fall precautions. History of Present Illness History of Present Illness Consult date/time: Date of service: 02/09/21 15:56 Cardiology consultation at the request of Dr. Hutchins of the [facility] service for opinion regarding atrial fibrillation with rapid ventricular response. Requesting physician: Flora Hutchins M.A., MD Consult reason: atrial fibrillation Reason For Visit: cva,pneumonia pleural effusion,compression fractur Narrative: Patient is a 75-year-old male with past medical history significant for paroxysmal atrial fibrillation, lymphoma, seizure disorder who was hospitalized end of September early October of this year for failure to thrive and left lower lobe pneumonia with evidence of paroxysmal atrial fibrillation. During that hospitalization, he got up independently and against recommendations suffering an acute T11 vertebral fracture as well as subdural hematoma. He was then transferred to [facility] on his the care of neurosurgery. Since hospital discharge there he was residing in an assisted living when he was brought back to the emergency department as he was found on the floor next to his bed at 7:45 a.m. on 02/06/2021 confused diaphoretic weak and unable to get out with evidence of urine incontinence. CT of head revealed old infarction, resolved subdural hematoma. Lumbar spine imaging revealed new mild compression fractures L1-L3. Patient was started on IV antibiotics for suspicion for pneumonia sees and evidence of bilateral pleural effusions for which he was started on IV Lasix. Troponins were obtained for unclear reasons or mildly elevated at 0.463, 0.049. Patient has no complaints of ches
[2021-02-09 17:37] LABS: Troponin I 0.038 ng/mL (0.000-0.034)
[2021-02-09] MEDS: LATANOPROST 0.005% OP SOLN 2.5 ML BTL 1 DROP EACH EYE (21:48)
[2021-02-10] VITALS (10 sets, daily range): BP systolic 128–137; BP diastolic 74–92; PULSE 65–90; RESP 18; TEMP 36–36.6; O2SAT 96–100
[2021-02-10 06:40] LABS: Hemoglobin 10.9 g/dL (14.0-18.0); Immature Platelet Fraction Pct 6.8 % (0.9-11.2); Mean Corpuscular Volume 102.8 fl (80-100); Mean Platelet Volume 11.6 fl (7.4-10.4); Platelet Count Result 95 k/mm3 (150-375); Red Blood Count 3.21 M/mm3 (4.6-6.20); Red Cell Distribution Width 13.8 % (11.5-14.5); White Blood Count 9.4 K/mm3 (4.5-10.0)
[2021-02-10 06:46] LABS: Anion Gap 8 mmol/L (8-16); Blood Urea Nitrogen 20 mg/dL (9-20); Calcium 8.7 mg/dL (8.4-10.2); Carbon Dioxide 21 mmol/L (22-30); Chloride 110 mmol/L (98-107); Estimated CRCL calculation 47 ml/min; Estimated Glomerular Filt Rate 54; Glucose 131 mg/dL (65-110); Potassium 2.8 mmol/L (3.4-5.0); Sodium 139 mmol/L (137-145)
[2021-02-10] MEDS: POTASSIUM CHLORIDE 20 MEQ TABLET 40 MEQ PO ×2 (07:48→11:44)
[2021-02-10] MEDS: valACYclovir HCL 500 MG TABLET PO ×2 (07:49→16:41)
[2021-02-10] MEDS: TAMSULOSIN HCL 0.4 MG CAPSULE PO (07:49)
[2021-02-10] MEDS: TOPIRAMATE 100 MG TABLET PO ×2 (07:49→16:41)
[2021-02-10] MEDS: APIXABAN 5 MG TABLET PO ×2 (07:49→16:41)
[2021-02-10] MEDS: PANTOPRAZOLE 40 MG TABLET PO (07:49)
[2021-02-10] MEDS: TOPIRAMATE 25 MG TABLET 50 MG PO ×2 (07:49→16:41)
[2021-02-10] MEDS: METOPROLOL SUCCINATE EXT REL 25 MG TABCR PO (07:50)
[2021-02-10] MEDS: FUROSEMIDE INJ 40 MG/4 ML VIAL 20 MG IV PUSH (07:52)
[2021-02-10] MEDS: DOXYCYCLINE IV 100 MG in SODIUM CHLORIDE 0.9% IV 100 ML IVPB ×2 (07:52→21:09)
[2021-02-10 10:52] LABS: Potassium 3.2 mmol/L (3.4-5.0)
--- NOTE | 2021-02-10 11:27 | PM.IMPN ---
Progress Note: A&P Assessment and Plan (1) Pneumonia: Qualifiers: Laterality: unspecified laterality Lung location: unspecified part of lung Pneumonia type: due to unspecified organism Qualified Code(s): J18.9 - Pneumonia, unspecified organism Code(s): J18.9 - Pneumonia, unspecified organism Status: Acute Assessment and Plan: Started on IV Rocephin and azithromycin on 02/08/2021 now on iv doxycycline Plan for 5 more days of antibiotic WCC ARE NL, BC negative to date. 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 Continue to monitor continue diuresis with iv lasix (3) Paroxysmal atrial fibrillation: Code(s): I48.0 - Paroxysmal atrial fibrillation Status: Acute Assessment and Plan: Currently in sinus rhythm, anticoagulated with Eliquis, pt seen by cardiology see recommendations (4) Closed compression fracture of L3 vertebra: Qualifiers: Encounter type: subsequent encounter Fracture healing: with nonunion Qualified Code(s): S32.030K - Wedge compression fracture of third lumbar vertebra, subsequent encounter for fracture with nonunion Code(s): S32.030A - Wedge compression fracture of third lumbar vertebra, initial encounter for closed fracture Status: Acute Assessment and Plan: New mild compression fractures of L1 and L3, stable compression fractures of L2 on L4, stable L5 burst fracture, and slight worsening of anterior vertebral body height loss at the previously described T11 compression fracture. Pain control DVT prophylaxis PT OT (5) Altered mental status: Code(s): R41.82 - Altered mental status, unspecified Status: Acute Assessment and Plan: Resolving likley secondary to infection Subjective Date/time seen: 02/10/21 11:27 Interval history: Pt admitted or pneumonia and CHF exacerbation with pleural effusions. Pt has history of Anemia CHI (closed head injury) Diarrhea Esophagitis Failure to thrive Lymphoma Seizures Patient had CT scan of head, and cervical spine without any acute injury, similarly patient had thoracic spine did not show any acute injury, however lumbar spine showed New mild compression fractures of L1 and L3, stable compression fractures of L2 on L4, stable L5 burst fracture, and slight worsening of anterior vertebral body height loss at the previously described T11 compression fracture. In ER patient is suspected to have pneumonia and started the patient on levofloxacin, Zosyn, and vancomycin Antibiotic was adjusted to Rocephin and azithromycin on 02/08/2021. Pt was altered on admission appears more coherent today Review of Systems Review of Systems: All systems reviewed & are unremarkable except as noted in HPI and below Exam Narrative: Alert Chest decreased air entry bilateral Abdomen nontender nondistended CVS S1 + S2 No leg edema Objective Data Vital Signs Vital Signs: Vital Signs - 24 hr 02/09/21 12:00 02/09/21 13:34 02/09/21 14:00 Temperature 36.6 C Pulse Rate 89 132 H 93 Respiratory Rate 16 Blood Pressure 111/73 Pulse Oximetry 99 02/09/21 16:00 02/09/21 18:13 02/09/21 19:24 Temperature 36.6 C Pulse Rate 113 H 122 H 77 Respiratory Rate 18 Blood Pressure 109/80 Pulse Oximetry 96 02/09/21 20:00 02/10/21 00:00 02/10/21 04:18 Temperature Pulse Rate 79 77 74 Respiratory Rate Blood Pressure Pulse Oximetry 02/10/21 05:09 02/10/21 07:50 02/10/21 08:00 Temperature 36.6 C Pulse Rate 76 76 82 Respiratory Rate 18 Blood Pressure 128/74 Pulse Oximetry 98 Intake/Output Intake/Output: Intake & Output 02/07/21 02/08/21 02/09/21 02/10/21 23:59 23:59 23:59 23:59 Intake Total 0120 1845 1350 590 Output Total 870 750 Rupinder
[2021-02-10] MEDS: cefTRIAXone 2 GM in SODIUM CHLORIDE 0.9% IV 100 ML 200 ML IVPB (11:44)
--- NOTE | 2021-02-10 12:16 | PM.PNCARD ---
Progress Note: A&P Assessment and Plan (1) Paroxysmal atrial fibrillation: Code(s): I48.0 - Paroxysmal atrial fibrillation <ESTEBAN Restrepo - Last Filed: 02/10/21 13:52> Status: Acute <ESTEBAN Restrepo - Last Filed: 02/10/21 13:52> Assessment and Plan: Patient presented in sinus rhythm after Toprol XL has been held for least 2 days developing AFib with RVR heart rates up to 140-150 beats per minute. Toprol XL was increased to 50 mg daily. He is now in sinus rhythm with a rate in the 90's. Given his presentation ongoing candidacy for systemic anticoagulation is highly questionable. Given radiographic evidence of prior stroke patient remains at high risk for recurrent embolic stroke off anticoagulation yet high risk for bleed and potential catastrophic complications on anticoagulation. Very difficult clinical scenario. <ESTEBAN Restrepo - Last Filed: 02/10/21 13:52> (2) Altered mental status: Code(s): R41.82 - Altered mental status, unspecified <ESTEBAN Restrepo - Last Filed: 02/10/21 13:52> Status: Acute <ESTEBAN Restrepo - Last Filed: 02/10/21 13:52> Assessment and Plan: Thought secondary to acute metabolic encephalopathy related to pneumonia. Much improved today. <ESTEBAN Restrepo - Last Filed: 02/10/21 13:52> (3) Pneumonia: Qualifiers: Laterality: unspecified laterality Lung location: unspecified part of lung Pneumonia type: due to unspecified organism Qualified Code(s): J18.9 - Pneumonia, unspecified organism <ESTEBAN Restrepo - Last Filed: 02/10/21 13:52> Code(s): J18.9 - Pneumonia, unspecified organism <ESTEBAN Restrepo - Last Filed: 02/10/21 13:52> Status: Acute <ESTEBAN Restrepo - Last Filed: 02/10/21 13:52> Assessment and Plan: Per hospitalist service. He remains on IV antibiotics. 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 As above. <Magali Ashok ESTEBAN Nayak - Last Filed: 02/10/21 13:52> (5) History of subdural hematoma (post traumatic): Code(s): Z87.828 - Personal history of other (healed) physical injury and trauma <ESTEBAN Restrepo - Last Filed: 02/10/21 13:52> Status: Acute <Magali Ashok ESTEBAN Nayak - Last Filed: 02/10/21 13:52> Assessment and Plan: Defer to primary service. Fall precautions. <Magali LeePhilippe ESTEBAN Nayak - Last Filed: 02/10/21 13:52> Additional Plan Attending Addendum: I personally seen and examined this patient at bedside. I agree with the above documentation and plan of care as outlined. -patient much more alert but still somewhat confused. Circuitous reasoning when discussing risk for bleeding on anticoagulation and stroke risk if discontinued. Patient was unable to quite comprehend concerns repeating the same response about getting stronger. He denies dizziness, chest pain, palpitations or shortness of breath. Patient denies pain at this time. We discussed at length my concern with regards to fall risk given his history of intracerebral hemorrhage, fall with fracture and the fact that he was once again found unresponsive on the ground which he does not recall this hospitalization. I tried to get him to discuss with me in provided opinion with regards to continuation of anticoagulation and fall risk which he could not communicate or qualify for me. Patient converted back to sinus rhythm on telemetry. Feeling much better overall. Still receiving IV antibiotics for pneumonia. Exam: NAD, A&Ox2, nonfocal neuro exam No JVD Lungs diminished breath sounds diffusely,
[2021-02-10] MEDS: LATANOPROST 0.005% OP SOLN 2.5 ML BTL 1 DROP EACH EYE (21:06)
[2021-02-11] VITALS: PULSE 73
[2021-02-11 04:25] VITALS: PULSE 70
[2021-02-11 05:34] VITALS: BP 159/92; PULSE 72; RESP 18; TEMP 35.9; O2SAT 97
[2021-02-11 06:00] LABS: Hematocrit 35.5 % (42.0-52.0); Hemoglobin 11.7 g/dL (14.0-18.0); Immature Platelet Fraction Pct 6.4 % (0.9-11.2); Mean Corpuscular Hemoglobin 34.3 pg (26-34); Mean Corpuscular Volume 104.1 fl (80-100); Mean Platelet Volume 11.8 fl (7.4-10.4); Platelet Count Result 108 k/mm3 (150-375); Red Blood Count 3.41 M/mm3 (4.6-6.20); White Blood Count 8.3 K/mm3 (4.5-10.0)
[2021-02-11 06:11] LABS: Anion Gap 8 mmol/L (8-16); Blood Urea Nitrogen 23 mg/dL (9-20); Calcium 9.1 mg/dL (8.4-10.2); Carbon Dioxide 22 mmol/L (22-30); Chloride 109 mmol/L (98-107); Estimated CRCL calculation 51 ml/min; Estimated Glomerular Filt Rate 59; Glucose 92 mg/dL (65-110); Potassium 3.6 mmol/L (3.4-5.0); Sodium 139 mmol/L (137-145)
[2021-02-11 07:59] VITALS: PULSE 72
[2021-02-11] MEDS: TAMSULOSIN HCL 0.4 MG CAPSULE PO (07:59)
[2021-02-11] MEDS: TOPIRAMATE 100 MG TABLET PO (07:59)
[2021-02-11] MEDS: TOPIRAMATE 25 MG TABLET 50 MG PO (07:59)
[2021-02-11] MEDS: FUROSEMIDE 40 MG TABLET PO (07:59)
[2021-02-11] MEDS: PANTOPRAZOLE 40 MG TABLET PO (07:59)
[2021-02-11] MEDS: APIXABAN 5 MG TABLET PO (07:59)
[2021-02-11] MEDS: METOPROLOL SUCCINATE EXT REL 25 MG TABCR PO (07:59)
[2021-02-11] MEDS: DOXYCYCLINE IV 100 MG in SODIUM CHLORIDE 0.9% IV 100 ML IVPB (07:59)
[2021-02-11] MEDS: valACYclovir HCL 500 MG TABLET PO (07:59)
[2021-02-11 08:00] VITALS: PULSE 80
--- NOTE | 2021-02-11 10:34 | PM.DS ---
DS: Admitting Diagnosis Discharge Date 02/11/2021 Admitting Diagnosis Altered mental status DS: Discharge Diagnosis Discharge Diagnosis (1) Pneumonia: Qualifiers: Laterality: unspecified laterality Lung location: unspecified part of lung Pneumonia type: due to unspecified organism Qualified Code(s): J18.9 - Pneumonia, unspecified organism Code(s): J18.9 - Pneumonia, unspecified organism Status: Acute Assessment and Plan: Treated with IV antibiotics patient will be discharged on oral antibiotic WCC ARE NL, BC negative to date. 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 Continue to monitor continue diuresis with iv lasix patient will be discharged on oral diuretics repeat chest x-ray in 4 weeks (3) Paroxysmal atrial fibrillation: Code(s): I48.0 - Paroxysmal atrial fibrillation Status: Acute Assessment and Plan: Currently in sinus rhythm, anticoagulated with Eliquis, pt seen by cardiology see recommendations patient developed episodes of AFib with RVR the Toprol dose was increased to 50 mg daily (4) Closed compression fracture of L3 vertebra: Qualifiers: Encounter type: subsequent encounter Fracture healing: with nonunion Qualified Code(s): S32.030K - Wedge compression fracture of third lumbar vertebra, subsequent encounter for fracture with nonunion Code(s): S32.030A - Wedge compression fracture of third lumbar vertebra, initial encounter for closed fracture Status: Acute Assessment and Plan: New mild compression fractures of L1 and L3, stable compression fractures of L2 on L4, stable L5 burst fracture, and slight worsening of anterior vertebral body height loss at the previously described T11 compression fracture. Pain control DVT prophylaxis PT OT Follow-up with spine surgeon as outpatient (5) Altered mental status: Code(s): R41.82 - Altered mental status, unspecified Status: Acute Assessment and Plan: Resolving likley secondary to infection resolved (6) Seizure disorder: Code(s): G40.909 - Epilepsy, unspecified, not intractable, without status epilepticus Status: Acute Assessment and Plan: History of seizure disorder resume home dose of Topamax DS: Summary Hospital Course Hospital Course: 75 years old male presented to the hospital with altered mental status and shortness of breath was found to have bilateral pneumonia CHF exacerbation patient was treated with IV antibiotics IV diuretics his mental status has improved his shortness of breath has improved patient is alert oriented x3 now patient also developed AFib with RVR cardiology was consulted very complicated decision regarding anticoagulation continue home anticoagulation and follow-up with cardiology as outpatient also the metoprolol dose was increased to 50 mg daily Time Spent with Patient Time attestation: Total time spent providing and/or coordinating discharge services: Exam Narrative: Alert Chest decreased air entry bilateral Abdomen nontender nondistended CVS S1 + S2 No leg edema DS: Data Data Completed and Pending Labs on day of discharge: Labs from last 24 hours 02/11/21 02/11/21 02/10/21 05:19 05:19 10:34 WBC 8.3 RBC 3.41 L Hgb 11.7 L Hct 35.5 L MCV 104.1 H MCH 34.3 H MCHC 33.0 RDW 14.0 Plt Count 108 L MPV 11.8 H % Immature Plt Fraction 6.4 Sodium 139 Potassium 3.6 3.2 L Chloride 109 H Carbon Dioxide 22 Anion Gap 8 BUN 23 H Creatinine 1.20 Estim Creat Clear Calc 51 Estimated GFR 59 Glucose 92 Calcium 9.1 Preliminary micro results at discharge 02/06/21 13:33 Blood Culture - Preliminary Blood 02/06/21 12:12 Blood Culture - Preliminary Blood
[2021-02-11 11:03] LABS: EDCOVIDSCREEN Negative (Negative)
--- NOTE | 2021-02-11 12:21 | PM.PNCARD ---
Progress Note: A&P Assessment and Plan (1) Paroxysmal atrial fibrillation: Code(s): I48.0 - Paroxysmal atrial fibrillation <ESTEBAN Restrepo - Last Filed: 02/11/21 12:31> Status: Acute <ESTEBAN Restrepo - Last Filed: 02/11/21 12:31> Assessment and Plan: Patient presented in sinus rhythm after Toprol XL has been held for least 2 days developing AFib with RVR heart rates up to 140-150 beats per minute. Toprol XL was increased to 50 mg daily. He is now in sinus rhythm with a rate in the 90's. Given his presentation ongoing candidacy for systemic anticoagulation is highly questionable. Given radiographic evidence of prior stroke patient remains at high risk for recurrent embolic stroke off anticoagulation yet high risk for bleed and potential catastrophic complications on anticoagulation. Very difficult clinical scenario. For now he will remain on anticoagulation while he being monitored at rehab, determination for mcc safety needs to be made before he is discharged from rehab. If he remains a high risk for falls when finished with rehab, would recommend discontinuing eliquis and starting full dose ASA. <ESTEBAN Restrepo - Last Filed: 02/11/21 12:31> (2) Altered mental status: Code(s): R41.82 - Altered mental status, unspecified <ESTEBAN Restrepo - Last Filed: 02/11/21 12:31> Status: Acute <ESTEBAN Restrepo - Last Filed: 02/11/21 12:31> Assessment and Plan: Thought secondary to acute metabolic encephalopathy related to pneumonia. Continues to improve. <ESTEBAN Restrepo - Last Filed: 02/11/21 12:31> (3) Pneumonia: Qualifiers: Laterality: unspecified laterality Lung location: unspecified part of lung Pneumonia type: due to unspecified organism Qualified Code(s): J18.9 - Pneumonia, unspecified organism <ESTEBAN Restrepo - Last Filed: 02/11/21 12:31> Code(s): J18.9 - Pneumonia, unspecified organism <ESTEBAN Restrepo - Last Filed: 02/11/21 12:31> Status: Acute <ESTEBAN Restrepo - Last Filed: 02/11/21 12:31> Assessment and Plan: Per hospitalist service. On abx. 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 As above. <ESTEBAN Restrepo - Last Filed: 02/11/21 12:31> (5) History of subdural hematoma (post traumatic): Code(s): Z87.828 - Personal history of other (healed) physical injury and trauma <ESTEBAN Restrepo - Last Filed: 02/11/21 12:31> Status: Acute <ESTEBAN Restrepo - Last Filed: 02/11/21 12:31> Assessment and Plan: Defer to primary service. Fall precautions. <ESTEBAN Restrepo - Last Filed: 02/11/21 12:31> Additional Plan Attending addendum: I agree with the above documentation and plan of care as outlined. <Shayne Glez MD - Last Filed: 02/11/21 16:46> Subjective Date/time seen: 02/11/21 12:21 Cardiology follow up for Afib RVR Feeling better today. No shortness of breath, palpitations. No syncope or near syncope. Plan is for discharge to rehab today. <ESTEBAN Restrepo - Last Filed: 02/11/21 12:31> Review of Systems Review of Systems: All systems reviewed & are unremarkable except as noted in HPI and below <ESTEBAN Restrepo - Last Filed: 02/11/21 12:31> Constitutional: Constitutional: Reports as per HPI, Reports no additional constitutional complaints, Reports fatigue and Reports weakness <Magali Nayak APN-C - Last Filed: 02/11/21 12:31> Eyes: Eyes: Reports as per HPI and Reports no additional eye complaints <Magali Nayak APN
== END 2021-02-11 12:20 | DRG 193 ==
LOC: ANHED 11:04 → ANH3MED 23:16
PROVIDERS: Family Medicine; Admitting Provider Internal Medicine; Emergency Provider Emergency Medicine; Visit Provider Internal Medicine
DX: J18.9 Pneumonia, unspecified organism (principal); I50.43 Acute on chronic combined systolic (congestive) and diastolic (congestive) heart failure; S32.010A Wedge compression fracture of first lumbar vertebra, initial encounter for closed fracture; S32.030A Wedge compression fracture of third lumbar vertebra, initial encounter for closed fracture; Z20.822 Contact with and (suspected) exposure to COVID-19; I48.0 Paroxysmal atrial fibrillation; R41.82 Altered mental status, unspecified; G40.909 Epilepsy, unspecified, not intractable, without status epilepticus; S22.080D Wedge compression fracture of T11-T12 vertebra, subsequent encounter for fracture with routine healing; W19.XXXA Unspecified fall, initial encounter; Z91.81 History of falling; Z79.899 Other long term (current) drug therapy; Z85.72 Personal history of non-Hodgkin lymphomas; Z87.828 Personal history of other (healed) physical injury and trauma
CPT/HCPCS: 36415; 36600; 70450; 71045; 71046; 72072; 72100; 72125; 72170; 80048; 80053; 80307; 81001; 82550; 82805; 82948; 83735; 83880; 84132; 84443; 84484; 85025; 85027; 85055; 85610; 85730; 87040; 87426; 93005; 96365; 96366; 96367; 97110; 97116; 97161; 97166; 97530; 97535; 99285; A9270; C9803; J0131; J0696; J1940; J1956; J2543; J3370; J7030

== ENCOUNTER 2021-05-24 09:42 | Emergency (ER) | payer MEDICARE, SELFPAY ==
[2021-05-24] VITALS (70 sets, daily range): BP systolic 146–186; BP diastolic 68–125; PULSE 67–107; RESP 13–39; O2SAT 90–100
--- NOTE | ~2021-05-24 | XR_ITS ---
EXAMINATION: XR chest 1V portable DATE: 05/24/2021 14:40 INDICATION: Pleural effusion. TECHNIQUE: A single frontal view of the chest was obtained. COMPARISON: Chest single view 02/11/2021, chest CT 10/24/2020 FINDINGS: There are small right and moderate-sized left pleural effusions. There are airspace opaciti es in the mid and lower lung zones. There is mild scarring at left lung apex. No pneumothorax. The he art size is normal. IMPRESSION: 1. Stable small right and moderate-sized left pleural effusions. 2. Airspace opacities in the mid and lower lung zones, consistent with atelectasis versus pneumonia. Reviewed, dictated and finalized at location A. IMPRESSION: 1. Stable small right and moderate-sized left pleural effusions. 2. Airspace opacities in the mid and lower lung zones, consistent with atelecta sis versus pneumonia.
--- NOTE | ~2021-05-24 | CT_ITS ---
EXAMINATION: CTA chest PE protocol DATE: 05/24/2021 16:18 INDICATION: Pleural effusion. TECHNIQUE: Computed tomography angiography (CTA) of the chest was performed with 100 mL Omnipaque-350 intravenous contrast timed to evaluate the pulmonary arteries. Coronal maximum intensity projection 3D-reconstructions were created by the technologist. Automated exposure control and iterative reconst ruction technique were employed. The dose-length product was 426.42 mGy-cm. COMPARISON: Chest single view 05/24/2021, chest CT 10/24/2020 FINDINGS: There are small right and moderate-sized left pleural effusions. There is dependent atelect asis bilaterally. There is mild scarring at the lung apices. Cardiomegaly is noted. There are coronar y artery calcifications. No pericardial effusion. There is a small sliding hiatal hernia. There is no pulmonary embolus. There are cysts in the liver measuring up to 10 mm. There is a healing fracture o f the body of the sternum. There are burst fractures of T5, T7, T11, and L1, likely subacute. There i s a compression fracture of T9, likely subacute. There are chronic compression fractures of T6, T8, a nd T10. There is mild thoracic spondylosis. IMPRESSION: 1. No pulmonary embolus. 2. Small right and moderate-sized left pleural effusions. 3. Multiple vertebral body fractures that are new from 10/24/2020, but likely subacute. Reviewed, dictated and finalized at location A. IMPRESSION: 1. No pulmonary embolus. 2. Small right and moderate-sized left pleural effusions. 3. Multiple vertebral body fractures that are new from 10/24/2020, but likely [facility] bacute.
--- NOTE | ~2021-05-24 | CT_ITS ---
EXAMINATION: CT brain wo con, CT cervical spine wo con EXAM DATE: 05/24/2021 10:55 INDICATION: Fall injury. TECHNIQUE: Spiral CT of the head was performed without contrast. Axial, coronal and sagittal images were reviewed. Spiral CT of the cervical spine was performed without contrast. Axial images were rev iewed. Coronal and sagittal reformatted images were also reviewed. The dose-length product (DLP) fo r this examination was 681.00 (accession [id number]), 344.51 (accession [id number]) mGy-cm. The exposure was tailored according to patient size, and iterative reconstruction (ASIR) was used as additional dose reduction technique. Comparison is made to prior examination from 02/06/2021. FINDINGS: HEAD CT: There is an old small left frontal lobe infarction. Old small left occipital lobe infarction . There is no acute intraparenchymal hemorrhage. No evidence of intraparenchymal brain mass lesion. No evidence of acute infarction. There is mild periventricular and subcortical hypodensity, nonspeci fic but probably related to small vessel ischemic disease. There is ventricular prominence out of p roportion to sulci which is suspected most likely central atrophy rather than hydrocephalus. Normal pressure hydrocephalus cannot be excluded (clinical triad ataxia/gait disturbance, dementia, urinary incontinence). There is no mass effect or midline shift. There is no obstructive hydrocephalus ricky pected. There are no extra-axial collections. There are no acute calvarial fractures. Patient has had bilateral ocular lens surgery. Soft tissue is unremarkable. The visualized sinuses and mastoid air cells are well aerated. CERVICAL CT: Evidence of sizable nonloculated layering left pleural effusion. There is no evidence of acute cervical fracture. The odontoid process is intact. Pre-dens space is normal. Prevertebral s oft tissue is normal. There are no soft tissue abnormalities identified. There is no disc space wid ening or traumatic vertebral body subluxation suspected. There is mild to moderate cervical spondylo sis. A detailed level by level evaluation of spondylosis can be added as addendum if requested. IMPRESSION: 1. No acute intracranial findings or cervical fracture. 2. Mild to moderate cervical spondylosis. 3. 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 4. Left pleural effusion. Reviewed, dictated and finalized at location B. IMPRESSION: 1. No acute intracranial findings or cervical fracture. 2. Mild to moderate cervical spondylosis. 3. 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 4. Left pleural effusion.
--- NOTE | 2021-05-24 09:54 | ECG_ITS ---
Measurements Intervals [place] Rate: 94 P: 51 CA: 170 QRS: -61 QRSD: 129 T: 31 QT: 411 QTc: 514 Interpretive Statements SINUS RHYTHM WITH FREQUENT SUPRAVENTRICULAR PREMATURE COMPLEXES POSSIBLE LEFT ATRIAL ENLARGEMENT [-0.1mV P WAVE IN V1/V2] RIGHT BUNDLE BRANCH BLOCK [120+ ms QRS DURATION, UPRIGHT V1, 40+ ms S IN I/aVL/V4/V5/V6] INFERIOR MYOCARDIAL INFARCTION , PROBABLY OLD [40+ ms Q WAVE AND/OR ST/T ABNORMALITY IN II/aVF] ABNORMAL ECG COMPARED TO ECG 02/09/2021 12:58:01 SINUS RHYTHM NOW PRESENT Electronically Signed On 05-24-2021 17:25:40 CDT by Isidro Schultz M.D.
[2021-05-24 10:24] LABS: Basophils Percent Auto 0.1 % (0.2-1.2); Eosinophils Percent Auto 0.1 % (0-4.4); Hematocrit 37.1 % (42.0-52.0); Hemoglobin 11.9 g/dL (14.0-18.0); Immature Granulocyte Absolute 0.18 K/mm3 (0.00-0.031); Immature Platelet Fraction Pct 6.4 % (0.9-11.2); Lymphocytes Absolute Auto 0.07 K/mm3 (0.9-3.2); Lymphocytes Percent Auto 0.8 % (18.3-44.2); Mean Corpuscular HGB Conc 32.1 g/dl (32-36); Mean Corpuscular Hemoglobin 33.8 pg (26-34); Mean Corpuscular Volume 105.4 fl (80-100); Mean Platelet Volume 11.4 fl (7.4-10.4); Monocytes Absolute Auto 1.3 K/mm3 (0.1-0.6); Monocytes Percent Auto 14.5 % (2.6-8.5); Neutrophils Absolute Auto 7.6 K/mm3 (1.3-6.7); Neutrophils Percent Auto 82.5 % (45.5-73.1); Platelet Count Result 94 k/mm3 (150-375); Red Blood Count 3.52 M/mm3 (4.6-6.20); Red Cell Distribution Width 14.3 % (11.5-14.5); White Blood Count 9.2 K/mm3 (4.5-10.0)
[2021-05-24 10:35] LABS: Alanine Aminotransferase 24 U/L (4-50); Albumin Level 4.3 g/dL (3.5-5.1); Alkaline Phosphatase 97 U/L (38-126); Anion Gap 10 mmol/L (8-16); Aspartate Amino Transferase 24 U/L (17-59); Bilirubin,Total 0.4 mg/dL (0.2-1.3); Blood Urea Nitrogen 21 mg/dL (9-20); Calcium 8.9 mg/dL (8.4-10.2); Carbon Dioxide 18 mmol/L (22-30); Chloride 115 mmol/L (98-107); Estimated CRCL calculation 47 ml/min; Estimated Glomerular Filt Rate 54; Glucose 101 mg/dL (65-110); Potassium 3.7 mmol/L (3.4-5.0); Sodium 143 mmol/L (137-145)
[2021-05-24 10:41] LABS: Platelet Estimate Decreased (Adequate)
[2021-05-24 10:42] LABS: Anisocytosis 1+ (NORMAL); Ovalocytes 2+ (NORMAL)
--- NOTE | 2021-05-24 10:49 | ED.FALL ---
HPI - Fall General Chief Complaint: Fall Stated Complaint: found on floor Time Seen by Provider: 05/24/21 09:55 History of Present Illness HPI Narrative: Patient is 75-year-old male with a history of epilepsy presents to the emergency room following seizure. According to EMS, patient was found unresponsive in his room. On examination, patient states that he might have had a seizure. Patient is currently not postictal. Patient is ANO x2. Patient does not remember any of the events leading up to him being on the floor, or how he got to the hospital. Patient states that he is compliant with his seizure medication. Patient denies any pain at this time denies fever. Related Data Home Medications Medication Instructions Recorded Confirmed fluticasone propionate 50 mcg INTRANASAL DAILY PRN 10/06/20 02/06/21 latanoprost 1 drp EACH EYE HS 10/06/20 02/06/21 topiramate [Topamax] 50 mg BID 10/06/20 02/06/21 valacyclovir 500 mg PO BID 10/06/20 02/06/21 Eliquis 5 mg PO BID 02/07/21 02/07/21 pantoprazole [Protonix] 40 mg PO DAILY 02/07/21 02/07/21 tamsulosin [Flomax] 0.4 mg PO DAILY 02/07/21 02/07/21 Allergies Allergy/AdvReac Type Severity Reaction Status Date / Time tomato Allergy Unknown Unknown Verified 10/23/20 22:14 aprepitant Allergy Rash Verified 10/24/20 03:08 ONION Allergy Mild Unknown Uncoded 10/23/20 22:14 Review of Systems Review of Systems: CONSTITUTIONAL: Denies fever, chills, or sweats. EYES: Denies visual changes, redness, or discharge. ENT: Denies rhinorrhea, congestion, sore throat, or otalgia. CARDIOVASCULAR: Denies chest pain, palpitations, or edema. RESPIRATORY: Denies cough or dyspnea. GASTROINTESTINAL: Denies abdominal pain, nausea, vomiting, or diarrhea. GENITOURINARY: Denies dysuria or hematuria. SKIN: Denies rash or itching. MUSCULOSKELETAL: Denies back pain, joint pain, or myalgia. NEUROLOGIC: Denies headache, numbness, dizziness, or weakness. PSYCHIATRIC: Denies anxiety or depression. [facility] Past Medical History Medical History Anemia CHI (closed head injury) Diarrhea Esophagitis Failure to thrive Lymphoma Paroxysmal atrial fibrillation Seizures Surgical History Surgical History H/O prostatectomy History of appendectomy History of hernia surgery Family History Family History Mother Breast cancer Father Lymphoma Social History Social History Social History: Patient would like to be a full code and would like his son and daughter Kirill and Denise as his surrogate decision maker if needed. He has never smoked cigarettes. He drinks about 1-2 drinks socially a week if he goes out with his friends. 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 No drugs Smoking status: Never smoker Second hand tobacco smoke exposure: Yes Alcohol intake: current Drinks per week: 1 Substance use: never Gender identity (if verbalized by the patient): Male Spiritual care concerns: No Exam Narrative: GENERAL: Well-appearing, well-nourished, and in no acute distress. HEAD: Normocephalic, atraumatic. EYES: PERRLA and EOMI. ENT: Nares clear, no rhinorrhea or epistaxis. Mucous membranes moist. NECK: Supple. No adenopathy or masses. No carotid bruits or JVD. c-collar in place CHEST: Clear to auscultation. No respiratory distress. No wheezes rales or rhonchi HEART: Regular rate and rhythm. No murmur heard. Normal peripheral pulses. ABDOMEN: Soft, nontender, nondistended, normal active bowel sounds. EXTREMITIES: Normal range of motion. No edema. SKIN: Warm, dry, no rash. Skin tear to right elbow NEURO: No focal deficits. Alert and oriented x2. PSYCH: Normal mood and affect. Course Vital Signs Vital signs: Vital Signs Pulse Rate 91 05/24/21 09:54 Respiratory Rate
[2021-05-24 13:42] LABS: Appearance Urine Clear (Clear); Bilirubin Urine Negative (Negative); Blood Urine 1+ (Negative); Color Urine Yellow (Yellow); Glucose Urine UA Negative (Negative); Ketones Urine 1+ mg/dL (Negative); Leukocyte Esterase Ur Negative LEU/UL (Negative); Nitrate Urine Negative (Negative); Protein Urine Negative (Negative); Urobilinogen Urine 0.2 mg/dL (<2.0)
[2021-05-24 13:46] LABS: Mucus Urine Rare /lpf; WBC Urine 0-3 /hpf
[2021-05-24] MEDS: METOPROLOL SUCCINATE EXT REL 50 MG TABCR PO (13:51)
[2021-05-24 13:54] LABS: Add Urine Microscopic? YES
--- NOTE | 2021-05-24 14:16 | PC.NURSE ---
Patient's daughter called and provided additional information which was passed along to the EDP. Daughter updated. Ina [phone]
[2021-05-24] MEDS: SODIUM CHLORIDE 0.9% IV 1,000 ML 150 ML IV CONT (15:25)
[2021-05-24 15:47] LABS: D Dimer 1.31 ug/mL (<0.48)
--- NOTE | 2021-05-24 16:00 | PC.NURSE ---
Patient off unit to Radiology for CT.
--- NOTE | 2021-05-24 19:14 | PC.NURSE ---
Patient report given to NISA Swanson. All questions answered and care of patient transferred. Continue to await [facility] transport back to assisted living facility.
--- NOTE | 2021-05-24 20:03 | PC.NURSE ---
Patient report given to [facility]. All questions answered. Pt transported via stretcher with all belongings.
== END 2021-05-24 20:18 ==
PROVIDERS: Emergency Medicine; Emergency Provider Nurse Practitioner Family
DX: G40.909 Epilepsy, unspecified, not intractable, without status epilepticus (principal); I48.0 Paroxysmal atrial fibrillation; D64.9 Anemia, unspecified; Z79.01 Long term (current) use of anticoagulants; Z90.79 Acquired absence of other genital organ(s); M47.812 Spondylosis without myelopathy or radiculopathy, cervical region; J90 Pleural effusion, not elsewhere classified
CPT/HCPCS: 36415; 70450; 71045; 71275; 72125; 80053; 81001; 85025; 85055; 85380; 93005; 96361; 96365; 99284; A9270; J0696; J7030; Q9967

== ENCOUNTER 2021-07-06 08:07 | Emergency (ER) | payer MEDICARE, SELFPAY ==
--- NOTE | ~2021-07-06 | CT_ITS ---
EXAMINATION: CT brain wo con INDICATION: Seizure COMPARISON: 05/24/2021 TECHNIQUE: Standard unenhanced head CT. The dose-length product (DLP) was 605.33 mGy-cm. The mA was a djusted according to patient size. Iterative reconstruction technique was employed. FINDINGS: There is no acute intraparenchymal hemorrhage. No evidence of mass lesion. No evidence of a cute infarction. There is mild periventricular and subcortical hypodensity probably related to small vessel ischemic disease. Again noted is ventricular prominence out of portion to the sulci, likely re lated to cerebral atrophy. Intracranial calcified cerebral atherosclerosis is noted. There are no ext ra-axial collections. There is no mass effect or midline shift. The orbits and soft tissues are unrem arkable. There is mild mucosal thickening of the paranasal sinuses. IMPRESSION: 1. No acute intracranial abnormality. 2. Age related findings. Reviewed, dictated and finalized at location A.
--- NOTE | ~2021-07-06 | XR_ITS ---
XR chest 1V portable DATE: 07/06/2021 08:33 INDICATION: Confusion TECHNIQUE: Portable AP chest on 07/06/2021 at 0828 hours COMPARISON: 05/24/2021 CT pulmonary scan 05/24/2021 portable AP chest FINDINGS: Cardiomegaly. Mild thoracic aortic aneurysm. Mild left and minimal right pleural effusion. There is infiltrate or atelectasis in the lower lung zones primarily, left greater than right. No pneumothorax. Osteopenia. IMPRESSION: Bilateral lower lung infiltrate and/atelectasis and mild pleural effusions, left greater than right Reviewed, dictated and finalized at location B. IMPRESSION: Bilateral lower lung infiltrate and/atelectasis and mild pleural ef fusions, left greater than right
[2021-07-06 08:06] VITALS: BP 152/96; PULSE 93; RESP 22; TEMP 36.6; O2SAT 92
--- NOTE | 2021-07-06 08:09 | ECG_ITS ---
Measurements Intervals [place] Rate: 104 P: 51 SC: 174 QRS: -64 QRSD: 142 T: 33 QT: 385 QTc: 508 Interpretive Statements SINUS TACHYCARDIA POSSIBLE LEFT ATRIAL ENLARGEMENT RIGHT BUNDLE BRANCH BLOCK LEFT ANTERIOR FASCICULAR BLOCK BASELINE ARTIFACT- I, II, III, AVR, AVL, AVF, V1-V2 ABNORMAL ECG Electronically Signed On 07-06-2021 8:48:21 CDT by Fernando Ruiz D.O.
--- NOTE | 2021-07-06 08:22 | ED.SEIZURE ---
HPI - Seizure General Chief Complaint: Seizure Stated Complaint: Seizure Time Seen by Provider: 07/06/21 08:10 Source: EMS Mode of arrival: EMS Limitations: altered mental status History of Present Illness HPI Narrative: Pt from local SNF after reported seizure. Pt reportedly has a history of seizures (Topamax on med list, no other seizure meds). Pt reportedly had thoracentesis yesterday at [facility] per daughter. complaint: seizure Description of Episode: loss of consciousness, tonic-clonic movement and post-event confusion -: minutes(s) (1-2) Witnessed: Yes - by Bystander Trauma: No Seizure History: Yes Place: home ([facility]) Associated symptoms: denies other symptoms Treatments prior to arrival: none Related Data Allergies Allergy/AdvReac Type Severity Reaction Status Date / Time tomato Allergy Unknown Unknown Verified 06/21/21 14:25 aprepitant Allergy Rash Verified 06/21/21 14:25 ONION Allergy Mild Unknown Uncoded 06/21/21 14:25 Review of Systems Review of Systems: ROS unobtainable: Yes unobtainable due to mental status PMFSH Past Medical History Medical History (Updated 07/06/21 @ 09:38 by Kathryn Chaney III, DO) Anemia CHI (closed head injury) Diarrhea Esophagitis Failure to thrive Lymphoma Paroxysmal atrial fibrillation SDH (subdural hematoma) Seizures Severe protein-calorie malnutrition Surgical History Surgical History H/O prostatectomy History of appendectomy History of hernia surgery Family History Family History Mother Breast cancer Father Lymphoma Social History Social History Social History: Patient would like to be a full code and would like his son and daughter Kirill and Denise as his surrogate decision maker if needed. He has never smoked cigarettes. He drinks about 1-2 drinks socially a week if he goes out with his friends. 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 No drugs Smoking status: Never smoker Second hand tobacco smoke exposure: Yes Alcohol intake: current Alcohol use details: Socially Substance use: never Substance use type: does not use Gender identity (if verbalized by the patient): Male Sexual Orientation (if Verbalized by the Patient): Straight or Heterosexual Spiritual care concerns: No Exam Const: General: healthy appearing and no acute distress Limitations: altered mental status (awake but confused. follows some commands but not consistently) Eyes: Conjunctivae: conjunctivae normal Pupils: Equal, round and reactive pupils present Neck: Neck: normal visual inspection, no lymphadenopathy and no meningeal signs Chest: Chest palpation & inspection: normal inspection of the chest Resp: Effort & Inspection: normal respiratory effort Auscultation: clear to auscultation bilaterally Cardio: Rate: tachycardic Rhythm: regular rhythm GI: GI Palp: Yes Soft to palpation Auscultation: normal bowel sounds Skin: General skin exam: normal color Rashes: no rashes Neuro: General: moves all extremities, no meningeal signs and no focal motor deficits Cranial nerves: Yes Nystagmus not present Other: difficult to perform accurate neuro exam due to mental status (post ictal?) Extrem: General: normal to inspection and no clubbing, cyanosis or edema Course Course Emergency Course: 929 pt now completely back to normal. Pt says he hasn't had a seizure in a long time, takes topamax for seizures and hasn't adjusted in awhile. Pt had not aura prior to event and doesn't remember ambulance ride, but now feels pretty good. Vital Signs Vital signs: Vital Signs Temperature 97.8 F 07/06/21 08:06 Pulse Rate 93 07/06/21 08:06 Respiratory Rate 22 H 07/06/21 08:06 Blood Pressure 152/96 H 07/06/21 08:06 Pulse Oximetry 92 07/06/21 08:06 Temperature 97.8 F 05
[2021-07-06 08:41] LABS: Hematocrit 39.8 % (42.0-52.0); Hemoglobin 12.8 g/dL (14.0-18.0); Mean Corpuscular HGB Conc 32.2 g/dl (32-36); Mean Corpuscular Hemoglobin 33.5 pg (26-34); Mean Corpuscular Volume 104.2 fl (80-100); Mean Platelet Volume 12.1 fl (7.4-10.4); Platelet Count Result 92 k/mm3 (150-375); Red Blood Count 3.82 M/mm3 (4.6-6.20); Red Cell Distribution Width 14.1 % (11.5-14.5); White Blood Count 4.4 K/mm3 (4.5-10.0)
--- NOTE | 2021-07-06 08:44 | PC.NURSE ---
pt currently at CT.
[2021-07-06 08:52] LABS: INR 1.3; Prothrombin Time 15.5 Seconds (11.1-14.7)
[2021-07-06 08:54] LABS: Partial Thromboplastin Time 27.9 SECONDS (22.3-36.8)
[2021-07-06 08:58] LABS: Albumin Level 4.4 g/dL (3.5-5.1); Alkaline Phosphatase 90 U/L (38-126); Anion Gap 16 mmol/L (8-16); Aspartate Amino Transferase 26 U/L (17-59); Bilirubin,Total 0.5 mg/dL (0.2-1.3); Blood Urea Nitrogen 19 mg/dL (9-20); Carbon Dioxide 14 mmol/L (22-30); Chloride 109 mmol/L (98-107); Estimated CRCL calculation 48 ml/min; Estimated Glomerular Filt Rate 54; Glucose 122 mg/dL (65-110); Potassium 3.8 mmol/L (3.4-5.0); Sodium 139 mmol/L (137-145)
[2021-07-06 09:00] LABS: Anisocytosis 1+ (NORMAL); Monocytes Absolute Manual 0.83 K/mm3 (0.1-0.90); Monocytes Percent Manual 19 % (3-9); Neutrophils Percent Manual 56 % (46-73); Ovalocytes 1+ (NORMAL); Platelet Estimate Decreased (Adequate); Total Cells Counted 100
[2021-07-06 09:04] LABS: Alanine Aminotransferase 22 U/L (6-50)
[2021-07-06 09:07] LABS: Troponin I 0.018 ng/mL (0.000-0.034)
[2021-07-06 09:09] LABS: Appearance Urine Clear (Clear); Bilirubin Urine Negative (Negative); Blood Urine 1+ (Negative); Color Urine Yellow (Yellow); Glucose Urine UA Negative (Negative); Ketones Urine 1+ mg/dL (Negative); Leukocyte Esterase Ur Negative LEU/UL (Negative); Nitrate Urine Negative (Negative); Protein Urine 1+ mg/dL (Negative); Specific Grav Ur >= 1.030 (1.001-1.035); Urobilinogen Urine 0.2 mg/dL (<2.0); pH Urine 5.5 (5.0-9.0)
[2021-07-06 09:14] LABS: Bacteria Urine Trace /hpf; Mucus Urine Rare /lpf; RBC Urine 0-2 /hpf (0-2); WBC Urine 0-3 /hpf
[2021-07-06 09:15] LABS: Add Urine Microscopic? YES
== END 2021-07-06 10:38 ==
PROVIDERS: Emergency Provider Emergency Medicine; PCP Family Medicine
DX: G40.909 Epilepsy, unspecified, not intractable, without status epilepticus (principal); I48.0 Paroxysmal atrial fibrillation; Z77.22 Contact with and (suspected) exposure to environmental tobacco smoke (acute) (chronic); Z85.72 Personal history of non-Hodgkin lymphomas; R00.0 Tachycardia, unspecified; I45.2 Bifascicular block; R94.31 Abnormal electrocardiogram [ECG] [EKG]
CPT/HCPCS: 36415; 70450; 71045; 80053; 81001; 84484; 85025; 85610; 85730; 93005; 99284